=== PATIENT | male | born 1950 | race Caucasian/White ===

== ENCOUNTER 2017-04-30 00:57 | Inpatient (IN) | payer BC, MEDICARE ==
[2017-04-30] MEDS ORDERED: RX INFO: IV CONTRAST WAS GIVEN 1 EACH MISC MISCELLANE PRN ×2 (01:24→05:44)
[2017-04-30 01:31] LABS: Basophils % (A) 0 %; Eosinophils # (A) 0.1 k/uL (0-0.7); Eosinophils % (A) 1 %; HGB 13.4 gm/dL (13.0-17.5); Lymphocytes # (A) 1.5 k/uL (1.0-4.8); Lymphocytes % (A) 16 %; MCH 30.9 pg (25.0-35.0); MCHC 33.5 g/dL (31.0-37.0); MCV 92.3 fL (80.0-100.0); Mean Platelet Volume 8.2; Monocytes # (A) 1.1 k/uL (0-1.0); Monocytes % (A) 12 %; Neutrophils # (A) 6.3 k/uL (1.3-7.7); Neutrophils % (A) 69 %; Platelet Count 251 k/uL (150-450); RBC 4.33 m/uL (4.30-5.90); RDW 13.2 % (11.5-15.5); WBC 9.1 k/uL (3.8-10.6)
--- NOTE | 2017-04-30 01:32 | ED ---
General Adult HPI - General Chief complaint: Abdominal Pain Stated complaint: upper abd/back pain Time Seen by Provider: 04/30/17 01:00 Source: patient, RN notes reviewed Mode of arrival: ambulatory Limitations: no limitations - History of Present Illness Initial comments: This is a 66-year-old male who presents emergency department with past medical history significant for diabetes and morbid obesity. Patient comes in today complaining of mid abdominal pain. Patient states he had 1 episode on that lasted an hour it was about a 6 out of 10. Patient states he had about a 3 -4 hour episode on Sunday and it was about an 8 out of 10. Patient states initially he thought it was related to eating however he states he has eaten since and not had any problems. Patient states occasionally he feels as though the pain may radiate to his back. Currently however he is not experiencing any back pain. Patient denies any nausea vomiting. Patient denies any current diarrhea. Patient denies any recent fever chills or cough. Patient denies any chest pain shortness of breath or difficulty breathing. Patient denies any headache patient denies numbness weakness. - Related Data Home Medications Medication Instructions Recorded Confirmed Atorvastatin [Lipitor] 10 mg PO DAILY 05/03/16 09/06/16 Glimepiride [Amaryl] 2 mg PO AC-BRKFST 05/03/16 09/06/16 Pioglitazone [Actos] 30 mg PO DAILY 05/03/16 09/06/16 Cholecalciferol [Vitamin D3] 1,000 unit PO DAILY 05/10/16 09/06/16 Multivitamin [Men's Multi-Vitamin] 1 each PO DAILY 05/10/16 09/06/16 HYDROcodone/APAP 7.5-325MG [[place] 7.5 mg PO Q6HR PRN 07/12/16 09/06/16 7.5-325] traMADol HCL [Ultram] 50 mg PO TID PRN 07/12/16 09/06/16 Allergies Allergy/AdvReac Type Severity Reaction Status Date / Time cat dander Allergy Dyspnea Verified 04/30/17 01:07 dust Allergy Dyspnea Uncoded 04/30/17 01:07 Review of Systems ROS Statement: Those systems with pertinent positive or pertinent negative responses have been documented in the HPI. ROS Other: All systems not noted in ROS Statement are negative. Past Medical History Past Medical History: Diabetes Mellitus, Hyperlipidemia, Skin Disorder, Sleep Apnea/CPAP/BIPAP Additional Past Medical History / Comment(s): hx heart murmur, wound lt lower leg x2 History of Any Multi-Drug Resistant Organisms: None Reported Past Surgical History: Orthopedic Surgery Additional Past Surgical History / Comment(s): rt ankle surgery with plate and 7 screws, I&D rectal cyst Past Anesthesia/Blood Transfusion Reactions: No Reported Reaction Past Psychological History: No Psychological Hx Reported Smoking Status: Never smoker Past Alcohol Use History: Occasional Past Drug Use History: None Reported - Past Family History Mother Family Medical History: Cancer Additional Family Medical History / Comment(s): breast, skin cancer General Exam - General Exam Comments Initial Comments: GENERAL: Patient is well-developed and well-nourished. Patient is nontoxic and well- hydrated and is mild distress. ENT: Neck is soft and supple. No significant lymphadenopathy is noted. Oropharynx is clear. Moist mucous membranes. Neck has full range of motion without eliciting any pain. EYES: The sclera were anicteric and conjunctiva were pink and moist. Extraocular movements were intact and pupils were equal round and reactive to light. Eyelids were unremarkable. PULMONARY: Unlabored respirations. Good breath sounds bilaterally. No audible rales rhonchi or wheezing was noted. CARDIOVASCULAR: Patient has an irregular heartbeat ABDOMEN: Soft and nontender with normal bowel sounds. No palpable organomegaly was noted. There is no palpable pulsatile mass. SKIN: Skin is clear with no lesions or rashes and otherwise unremarkable. NEUROLOGIC: Patient is alert and oriented x3. Cranial nerves II through XII are grossly intact. Motor and sensory are also intact. Normal speech, volume and content. Symmetrical smile. MUSCULOSKELETAL: Normal extremities with adequate strength and full range of motion. No lower extremity swelling or edema. No calf tenderness. LYMPHATICS: No significant lymphadenopathy is noted PSYCHIATRIC: Normal psychiatric evaluation. Normal interpersonal interactions appears functionally intact in deals appropriately with others. No signs of depression. No signs of anxiety. Limitations: no limitations Course Vital Signs 04/30/17 04/30/17 01:01 01:13 Temperature 98.5 F Pulse Rate 98 Respiratory 16 Rate Blood Pressure 189/91 134/72 O2 Sat by Pulse 98 Oximetry Medical Decision Making - Medical Decision Making EKG shows atrial fibrillation at a rate of 62 bpm QRS is 90 QT interval 366 QTC is 371. Patient's EKG does have some ST segment elevation 3 and aVF however the patient is completely chest pain-free EKG showed some minor ST segment elevation depression and even though the patient didn't have any chest pain cardiology was paged it took some 15 minutes to respond and we had called his cellphone at that time. I faxed the EKG to the dental amalgam processor because of my concern and we were finally able to get a hold of him 27 minutes later. At this time the catheterization team was called in. I spoke with Dr. Marshall and he agreed to admit the patient I admitted the patient - Lab Data Result diagrams: 04/30/17 01:22 04/30/17 01:22 Lab Results 04/30/17 04/30/17 04/30/17 Range/Units 01:22 01:22 01:22 WBC 9.1 (3.8-10.6) k/uL RBC 4.33 (4.30-5.90) m/uL Hgb 13.4 (13.0-17.5) gm/dL Hct 40.0 (39.0-53.0) % MCV 92.3 (80.0-100.0) fL MCH 30.9 (25.0-35.0) pg MCHC 33.5 (31.0-37.0) g/dL RDW 13.2 (11.5-15.5) % Plt Count 251 (150-450) k/uL Neutrophils % 69 % Lymphocytes % 16 % Monocytes % 12 % Eosinophils % 1 % Basophils % 0 % Neutrophils # 6.3 (1.3-7.7) k/uL Lymphocytes # 1.5 (1.0-4.8) k/uL Monocytes # 1.1 H (0-1.0) k/uL Eosinophils # 0.1 (0-0.7) k/uL Basophils # 0.0 (0-0.2) k/uL Sodium 138 (137-145) mmol/L Potassium 3.9 (3.5-5.1) mmol/L Chloride 102 (98-107) mmol/L Carbon Dioxide 27 (22-30) mmol/L Anion Gap 9 mmol/L BUN 19 (9-20) mg/dL Creatinine 1.00 (0.66-1.25) mg/dL Est GFR (MDRD) Af Amer >60 (>60 ml/min/1.73 sqM) Est GFR (MDRD) Non-Af >60 (>60 ml/min/1.73 sqM) Glucose 188 H (74-99) mg/dL Calcium 11.2 H (8.4-10.2) mg/dL Total Bilirubin 1.1 (0.2-1.3) mg/dL AST 297 H (17-59) U/L ALT 114 H (21-72) U/L Alkaline Phosphatase 64 (38-126) U/L Total Creatine Kinase (55-170) U/L CK-MB (CK-2) (0.0-2.4) ng/mL CK-MB (CK-2) Rel Index Troponin I 28.500 H* (0.000-0.034) ng/mL Total Protein 6.5 (6.3-8.2) g/dL Albumin 3.6 (3.5-5.0) g/dL Amylase 39 (30-110) U/L Lipase 119 (23-300) U/L 04/30/17 Range/Units 01:22 WBC (3.8-10.6) k/uL RBC (4.30-5.90) m/uL Hgb (13.0-17.5) gm/dL Hct (39.0-53.0) % MCV (80.0-100.0) fL MCH (25.0-35.0) pg MCHC (31.0-37.0) g/dL RDW (11.5-15.5) % Plt Count (150-450) k/uL Neutrophils % % Lymphocytes % % Monocytes % % Eosinophils % % Basophils % % Neutrophils # (1.3-7.7) k/uL Lymphocytes # (1.0-4.8) k/uL Monocytes # (0-1.0) k/uL Eosinophils # (0-0.7) k/uL Basophils # (0-0.2) k/uL Sodium (137-145) mmol/L Potassium (3.5-5.1) mmol/L Chloride (98-107) mmol/L Carbon Dioxide (22-30) mmol/L Anion Gap mmol/L BUN (9-20) mg/dL Creatinine (0.66-1.25) mg/dL Est GFR (MDRD) Af Amer (>60 ml/min/1.73 sqM) Est GFR (MDRD) Non-Af (>60 ml/min/1.73 sqM) Glucose (74-99) mg/dL Calcium (8.4-10.2) mg/dL Total Bilirubin (0.2-1.3) mg/dL AST (17-59) U/L ALT (21-72) U/L Alkaline Phosphatase (38-126) U/L Total Creatine Kinase 818 H (55-170) U/L CK-MB (CK-2) 40.7 H* (0.0-2.4) ng/mL CK-MB (CK-2) Rel Index 5.0 Troponin I (0.000-0.034) ng/mL Total Protein (6.3-8.2) g/dL Albumin (3.5-5.0) g/dL Amylase (30-110) U/L Lipase (23-300) U/L Critical Care Time Critical Care Time: Yes Total Critical Care Time: 35 Disposition Clinical Impression: Acute DE Disposition: ADMITTED IP TO THIS HOSP Referrals: Dylan Marshall MD [Primary Care Provider] - 1-2 days Time of Disposition: 02:34
[2017-04-30] MEDS ORDERED: NITROGLYCERIN SL TABS 0.4 MG TAB SUBLINGUAL STA (01:38)
[2017-04-30] MEDS ORDERED: ASPIRIN 81 MG PO STA (01:38)
[2017-04-30 01:45] LABS: ALT 114 U/L (21-72); AST 297 U/L (17-59); Albumin 3.6 g/dL (3.5-5.0); Alkaline Phosphatase 64 U/L (38-126); Amylase 39 U/L (30-110); Anion Gap 9 mmol/L; Blood Urea Nitrogen 19 mg/dL (9-20); Calcium 11.2 mg/dL (8.4-10.2); Carbon Dioxide 27 mmol/L (22-30); Chloride 102 mmol/L (98-107); Glucose 188 mg/dL (74-99); Lipase 119 U/L (23-300); Potassium 3.9 mmol/L (3.5-5.1); Sodium 138 mmol/L (137-145); Total Bilirubin 1.1 mg/dL (0.2-1.3); Total Protein 6.5 g/dL (6.3-8.2)
[2017-04-30] MEDS ORDERED: HEPARIN SODIUM,PORCINE 5,000 UNIT/ML 1 ML VIAL IV ONE (02:17)
[2017-04-30] MEDS ORDERED: ATORVASTATIN 80 MG TAB PO STA (02:29)
[2017-04-30] MEDS ORDERED: HEPARIN SOD,PORK IN 0.45% NACL 25,000 UNIT in 0.45% NACL 1 500ML.BAG IV SCH (02:30)
[2017-04-30 02:45] LABS: Creatine Kinase MB 40.7 ng/mL (0.0-2.4)
[2017-04-30] MEDS ORDERED: IV FLUID CONTINUATION 1,000 ML IV ONE (03:22)
[2017-04-30] MEDS ORDERED: VERAPAMIL 2.5 MG/ML 2 ML AMP ONE (03:23)
--- NOTE | 2017-04-30 03:36 | XR ---
EXAM: XR Chest, 1 View CLINICAL HISTORY: ITS.REASON XR Reason: Pain TECHNIQUE: Frontal view of the chest. COMPARISON: None. FINDINGS: Lungs: Mild opacification in the left lung base likely represents atelectasis although potentially small effusion or consolidation could have a similar appearance. Pleural space: Unremarkable. No pneumothorax. Heart: Severe cardiomegaly. Mediastinum: Unremarkable. Bones/joints: Unremarkable. IMPRESSION: Mild opacification in the left lung base likely represents atelectasis although potentially small effusion or consolidation could have a similar appearance.
[2017-04-30] MEDS ORDERED: MIDAZOLAM 2 MG/2 ML VIAL ONE (03:37)
[2017-04-30] MEDS ORDERED: MIDAZOLAM 2 MG/2 ML VIAL IV ONE (03:45)
[2017-04-30] MEDS ORDERED: LIDOCAINE 2% INJ 20 MG/ML SQ ONE (03:48)
[2017-04-30] MEDS: VERAPAMIL SYRINGE (5 MG/10 ML) INTRAARTER ONE ×2 (03:52→05:33)
[2017-04-30] MEDS ORDERED: BIVALIRUDIN BOLUS 250 MG/50 ML IV ONE (04:02)
[2017-04-30] MEDS ORDERED: BIVALIRUDIN 250 MG in SODIUM CHLORIDE 0.9% 50 ML IV ONE ×3 (04:03→05:07)
[2017-04-30] MEDS ORDERED: fentaNYL (PF) 50 MCG/ML 2 ML AMP ONE (04:19)
[2017-04-30] MEDS ORDERED: fentaNYL (PF) 50 MCG/ML 2 ML AMP IV ONE (04:21)
[2017-04-30] MEDS: NITROGLYCERIN 1000MCG/10ML SYRINGE INTRACORON ONE ×2 (04:39→05:16)
[2017-04-30] MEDS: niCARdipine Syringe (1,000 mcg/10 mL) INTRACORON ONE ×3 (04:40→05:31)
[2017-04-30] MEDS ORDERED: CLOPIDOGREL 75 MG TAB ONE (04:42)
[2017-04-30] MEDS ORDERED: CLOPIDOGREL 75 MG TAB PO ONE (04:47)
[2017-04-30] MEDS ORDERED: IOHEXOL 350 MG/ML 125ML BOTTLE INJ ONE (05:35)
[2017-04-30] MEDS ORDERED: ZOLPIDEM 5 MG TAB PO PRN (05:44)
[2017-04-30] MEDS ORDERED: MAG HYDROX/AL HYDROX/SIMETH 30 ML CUP PO PRN (05:44)
[2017-04-30] MEDS ORDERED: ATROPINE SULFATE 0.1 MG/ML 10ML SYRINGE IV PRN (05:44)
[2017-04-30] MEDS ORDERED: NITROGLYCERIN SL TABS 0.4 MG TAB SUBLINGUAL PRN (05:44)
[2017-04-30] MEDS ORDERED: SODIUM CHLORIDE 0.9% 1,000 ML IV SCH (05:45)
--- NOTE | 2017-04-30 05:53 | P.CRDCN ---
History of Present Illness Consult date: 04/30/17 Chief complaint: Abdominal discomfort History of present illness: This is a pleasant 66-year-old gentleman with a past medical history significant for morbid obesity, diabetes, hypertension, dyslipidemia, presented to the emergency room complaining of abdominal/epigastric discomfort. The patient was in his usual state of health until this past when he had an episode of abdominal discomfort lasted about an hour. The following day he did have another episode of abdominal discomfort as well lasted about an hour. He did feel that the discomfort was likely stomach related and he did not seek any medical attention. This area morning he presented to the emergency room with same kind of discomfort but it was more pronounced. He underwent a workup including a troponin which came in to be severe lead elevated. The EKG showed sinus rhythm with about half millimeter ST segment elevation inferiorly. He did not have any symptoms of chest pain or discomfort, dizziness or lightheadedness, or syncope. I recommended proceeding with a heart catheterization which revealed the total occlusion of the RCA in the midportion , beside that the RCA was full of clots from the midportion all the way to the distal portion. An attempted aspiration thrombectomy was performed but I was unable to aspirate any clot from the RCA. Subsequently I did perform balloon angioplasty of the distal and mid RCA and I was able to deploy 4 stents in the RCA from the distal portion all the way to the proximal to midportion. Bilateral hand we get good angiographic results without any thrombus burden was LYNN-3 flow in the RCA. The patient tolerated the procedure very well. He continues to be chest pain-free and the abdominal discomfort has improved as well as. During the procedure the patient has been in and out atrial fibrillation with controlled heart rates. By the end of the procedure he was in normal sinus mechanism. Beside the total occlusion of the RCA which I did few was not acute, the patient did have [id number]-ajvhtdnz disease involving the left circumflex and LAD as well. He is going to be admitted to the intensive care unit. He will be on dual antiplatelet therapy along with a statin along with metoprolol and lisinopril as well. An echocardiogram will be scheduled to assess the LV function. The patient does have a significant family history of coronary artery disease with 2 brothers with coronary artery disease and prior revascularization as well as a mother with coronary artery disease who I follow in the office as an outpatient. Past Medical History Past Medical History: Diabetes Mellitus, Hyperlipidemia, Skin Disorder, Sleep Apnea/CPAP/BIPAP Additional Past Medical History / Comment(s): hx heart murmur, wound lt lower leg x2 History of Any Multi-Drug Resistant Organisms: None Reported Past Surgical History: Orthopedic Surgery Additional Past Surgical History / Comment(s): rt ankle surgery with plate and 7 screws, I&D rectal cyst Past Anesthesia/Blood Transfusion Reactions: No Reported Reaction Past Psychological History: No Psychological Hx Reported Smoking Status: Never smoker Past Alcohol Use History: Occasional Past Drug Use History: None Reported - Past Family History Mother Family Medical History: Cancer Additional Family Medical History / Comment(s): breast, skin cancer Medications and Allergies Home Medications Medication Instructions Recorded Confirmed Type Atorvastatin [Lipitor] 10 mg PO DAILY 05/03/16 09/06/16 History Glimepiride [Amaryl] 2 mg PO AC-BRKFST 05/03/16 09/06/16 History Pioglitazone [Actos] 30 mg PO DAILY 05/03/16 09/06/16 History Cholecalciferol [Vitamin D3] 1,000 unit PO DAILY 05/10/16 09/06/16 History Multivitamin [Men's Multi-Vitamin] 1 each PO DAILY 05/10/16 09/06/16 History HYDROcodone/APAP 7.5-325MG [[place] 7.5 mg PO Q6HR PRN 07/12/16 09/06/16 History 7.5-325] traMADol HCL [Ultram] 50 mg PO TID PRN 07/12/16 09/06/16 History Allergies Allergy/AdvReac Type Severity Reaction Status Date / Time cat dander Allergy Dyspnea Verified 04/30/17 01:07 dust Allergy Dyspnea Uncoded 04/30/17 01:07 Physical Exam Vitals: Vital Signs Temp Pulse Resp BP Pulse Ox 04/30/17 03:10 97.7 F 78 18 134/78 97 04/30/17 01:13 134/72 04/30/17 01:01 98.5 F 98 16 189/91 98 Intake and Output 04/29/17 04/29/17 04/30/17 14:59 22:59 06:59 Intake Total 634.3 Balance 634.3 Intake: IV 634.3 Other: Weight 185.973 kg Patient Weight 04/30/17 06:59 Weight 185.973 kg - Constitutional General appearance: no acute distress - Respiratory Respiratory: bilateral: CTA - Cardiovascular Rhythm: regular Heart sounds: normal: S1, S2 Results 04/30/17 01:22 04/30/17 01:22 Cardiac Enzymes 04/30/17 04/30/17 04/30/17 Range/Units 01:22 01:22 01:22 AST 297 H (17-59) U/L CK-MB (CK-2) 40.7 H* (0.0-2.4) ng/mL Troponin I 28.500 H* (0.000-0.034) ng/mL CBC 04/30/17 Range/Units 01:22 WBC 9.1 (3.8-10.6) k/uL RBC 4.33 (4.30-5.90) m/uL Hgb 13.4 (13.0-17.5) gm/dL Hct 40.0 (39.0-53.0) % Plt Count 251 (150-450) k/uL Comprehensive Metabolic Panel 04/30/17 Range/Units 01:22 Sodium 138 (137-145) mmol/L Potassium 3.9 (3.5-5.1) mmol/L Chloride 102 (98-107) mmol/L Carbon Dioxide 27 (22-30) mmol/L BUN 19 (9-20) mg/dL Creatinine 1.00 (0.66-1.25) mg/dL Glucose 188 H (74-99) mg/dL Calcium 11.2 H (8.4-10.2) mg/dL AST 297 H (17-59) U/L ALT 114 H (21-72) U/L Alkaline Phosphatase 64 (38-126) U/L Total Protein 6.5 (6.3-8.2) g/dL Albumin 3.6 (3.5-5.0) g/dL Current Medications Generic Name Dose Route Start Last Admin Trade Name Freq PRN Reason Stop Dose Admin Al Hydroxide/Mg Hydroxide 30 ml 04/30/17 05:44 Maalox PO Q4HR PRN Heartburn Aspirin 325 mg 04/30/17 09:00 Aspirin PO DAILY [facility] Atorvastatin Calcium 80 mg 04/30/17 21:00 Lipitor PO HS [facility] Atropine Sulfate 0.5 mg 04/30/17 05:44 Atropine IV ONCE PRN Symptomatic Bradycardia Clopidogrel Bisulfate 75 mg 05/01/17 05:45 Plavix PO DAILY [facility] Heparin Sodium/Sodium Chloride 500 mls @ 20.08 mls/hr 04/30/17 02:30 03:17 25,000 unit/ Sodium Chloride IV Not Given .Q24H [facility] Protocol 5.4 UNITS/KG/HR Sodium Chloride 1,000 mls @ 100 mls/hr 04/30/17 05:45 Saline 0.9% IV 04/30/17 11:46 .Q10H [facility] Lisinopril 10 mg 04/30/17 09:00 Zestril PO DAILY [facility] Metoprolol Tartrate 25 mg 04/30/17 09:00 Lopressor PO BID [facility] Miscellaneous Information 1 each 04/30/17 01:24 04/30/17 01:31 Rx Info: Iv Contrast Was Given MISCELLANE 05/02/17 01:26 1 each DAILY PRN Administration Per Protocol Miscellaneous Information 1 each 04/30/17 05:44 Rx Info: Iv Contrast Was Given MISCELLANE 05/02/17 05:44 DAILY PRN Per Protocol Nitroglycerin 0.4 mg 04/30/17 05:44 Nitrostat SUBLINGUAL Q5M PRN Chest Pain Intake and Output 04/29/17 04/29/17 04/30/17 14:59 22:59 06:59 Intake Total 634.3 Balance 634.3 Intake: IV 634.3 Other: Weight 185.973 kg Patient Weight 04/30/17 06:59 Weight 185.973 kg 04/30/17 01:22 04/30/17 01:22 Assessment and Plan Assessment: Assessment #1 acute non-ST elevation myocardial infarction #2 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 Thank you for allowing us participate in his care
[2017-04-30 06:27] LABS: Glucose,Whole Blood 176 mg/dL (75-99)
--- NOTE | 2017-04-30 07:11 | CC ---
CARDIAC CATHETERIZATION REPORT DATE OF SERVICE: 04/30/2017 PERFORMING PHYSICIAN: Zachary Maddox MD, Risk Management Intern. PROCEDURE PERFORMED: 1. Selective right and left coronary angiogram. 2. Left heart catheterization. 3. Attempted aspiration thrombectomy from the RCA. 4. Successful stenting of the of the distal RCA using 3.0 x 24 mm Promus drug-eluting stent with good angiographic results. 5. Successful stenting of the distal to mid RCA using 3.5 x 32 mm Promus Premier drug- eluting stent with good angiographic results. 6. Successful stenting of the mid RCA using 3.5 x 20 mm Promus Premier drug-eluting stent with good angiographic results. 7. Successful stenting of the of the proximal to mid RCA using 3.5 x 60 mm Promus Premier drug-eluting stent with good angiographic results. INDICATION: This is a pleasant 66-year-old gentleman who is morbidly obese as well as with diabetes, hypertension, dyslipidemia, presented to the emergency room complaining of abdominal discomfort and he was ruled in for acute non-ST elevation myocardial infarction. A heart catheterization was recommended. APPROACH: Right radial artery. COMPLICATION: None. LEVEL OF SEDATION: Moderate sedation length of 107 minutes. PROCEDURE DESCRIPTION: After obtaining an informed consent, the patient was brought to the Cardiac Driver Merchandiser. The right radial artery was cannulated using micropuncture technique, the micropuncture wire passed easily, then I placed a 6-Telugu sheath in the right radial artery. After that, I did selective right and left coronary angiogram using JR4 and JL3.5 catheters. After that I did left heart catheterization using JR4 catheter which flipped into the LV then I did pullback across the aortic valve. After that I did intervene on the RCA, please see separate paragraph for that. SELECTIVE CORONARY ANGIOGRAM: 1. The RCA is a large caliber vessel, a dominant vessel, and calcified vessel. The RCA is 100% occluded in the mid-portion. 2. The left main is angiographically normal, it bifurcates into the circumflex and left anterior descending artery. 3. The left circumflex is a large caliber vessel and it is a nondominant vessel. The ostial circ appeared to have disease in the range of 40% to 50%. The proximal circ appeared to gives rise into a large OM branch which worked as ramus intermedius, which seems to have mild disease only. The mid circ appeared to be angiographically normal and gives rise into a second OM branch which seems to be angiographically normal and the circ continued after that as a small to medium caliber vessel in the AV groove. 4. The left anterior descending artery: The proximal LAD is angiographically normal. It gives rise into a large diagonal branch which appeared to have mild disease only. The mid LAD has a lesion appeared to be in the range of 50%. This is by the bifurcation of second diagonal branch which appeared to have an ostial disease in the range of 50%. The LAD in the mid to distal and distal portion appeared to be angiographically normal. HEMODYNAMICS: The left ventricular end-diastolic pressure was 16 mmHg. No gradient was identified across the aortic valve. PCI OF THE RCA: Anticoagulation was initiated using Angiomax. Subsequently, I took a JR4 guide and the RCA was engaged. I was able to cross the acute total occlusion of the mid RCA using a whisper wire. I did initially balloon angioplasty using 2.5 x 12 mm balloon but I was unable to advance the balloon to the distal RCA, so I suspected a hard lesion in that area. I did after that attempting an aspiration thrombectomy of the mid RCA, but I was unable to cross the proximal to midportion of the RCA. After that, I tried to do balloon angioplasty using 3.0 mm balloon, but I was unable to advance the balloon to the distal area of the RCA. At that point, I did balloon angioplasty using 1.5 mm balloon and I did balloon angioplasty of the whole distal and mid RCA. After that I did balloon angioplasty using 3.5 mm balloon and also I did balloon angioplasty of the whole distal and mid RCA. After that, I attempted advancing a 3.0 x 24 mm stent to the distal RCA, but the stent will not turn in the proximal to mid RCA, so I did wire the RCA using a syl wire and that was a run-through wire. With the adjunctive use of run- through, I was able to deploy 4 stents in the RCA. The first stent was 3.0 x 24 mm and was deployed distally just by the bifurcation of the RCA to PDA and PLV branches. The stent was positioned under fluoroscopy guidance and deployed under 14 atmospheres for 20 seconds. The distal to mid RCA was stented using 3.5 x 32 mm stent and again the stent was positioned under fluoroscopy guidance and deployed under 12 atmospheres for 20 seconds. The area of the mid RCA was stented using 3.5 x 20 mm another Promus drug- eluting stent where the stent again was positioned under fluoroscopy guidance and deployed under about 14 atmospheres for 20 seconds. The following angiogram showed an area just in the proximal to mid RCA. seems to be hazy with possible thrombus there. So I decided to stent that area and I did use a 3.5 x 16 mm another Promus drug-eluting stent where the stent was positioned under fluoroscopy guidance and deployed as well under 14 atmospheres for 20 seconds. Then I did balloon angioplasty of the whole stented segment using a 37.5 mm NC balloon. The following angiogram showed good angiographic results without perforation and without dissection. The procedure was completed without any complication. POSTPROCEDURE MANAGEMENT: 1. Dual anti-platelet therapy. 2. Risk factors modifications. 3. Follow up with the patient. ALYSON / VEE: [id number] /
--- NOTE | 2017-04-30 07:17 | LTR ---
DATE OF SERVICE: 04/30/2017 RE: Nino Luis Dear Dr. Marshall; Mr. Luis Oneill presented to the emergency room with epigastric discomfort, but he ruled in for acute non-ST elevation myocardial infarction with severely elevated troponin and mildly abnormal EKG. In view of that, I recommended proceeding with a heart catheterization. The heart catheterization revealed the acute total occlusion of the mid RCA with large thrombus burden. Mr. Oneill underwent successful stenting of the RCA using 4 drug-eluting stents with good angiographic results within and without any complication. Thank you for allowing me to participate in his care. Sincerely, MD ALYSON Hemphill / VEE: [id number] /
[2017-04-30] MEDS: traMADol 50 MG TAB PO PRN ×2 (08:19→19:01)
[2017-04-30] MEDS ORDERED: METOPROLOL TARTRATE 25 MG TAB PO SCH (09:00)
[2017-04-30] MEDS: ASPIRIN 325 MG TAB PO SCH (10:28)
--- NOTE | 2017-04-30 11:34 | P.PN ---
Subjective Principal diagnosis: Patient is doing well after coronary artery stenting of the RCA in the setting of an acute myocardial infarction He denies any chest discomfort no undue shortness of breath This morning he was eating breakfast when the food got stuck in his esophagus and he can't cough it out. At that time he had bradycardia with AV block associated with dizziness The dizziness followed with food getting stuck in his esophagus He is a mildly prolonged [place] interval at baseline No recurrence since Lying comfortably in bed heart rate in 70s, respirations normal, blood pressure 148/71 mmHg Heart sounds are normal normal S1 normal S2 no murmurs or gallops Breath sounds are clear no rhonchi no crackles Abdomen soft nontender Trophic changes in the lower extremities Right hand has normal circulation He had a right radial access for the procedure 2-D echo was reviewed and shows inferoseptal inferior basal hypokinesis Overall LV size and function is preserved Review of systems: No fever chills or rigors, no cough, phlegm or expectoration , no nausea, vomiting or diarrhea, no hematuria, dysuria, no musculoskeletal complaints, no strokes or seizures, no skin lesions. Only complaint has been dizziness and presyncope during the episode of brief AV block with bradycardia as described above Impression Acute myocardial infarction, high thrombus burden in the RCA Coronary stenting of the RCA proximal mid and distal Morbid obesity Diabetes adult onset Hypertension, essential Obstructive sleep apnea Inferior basal and inferoseptal hypokinesis with preserved LV systolic function Suggest Hold beta blockers for now continue all other cardiac medications including medications for hypertension, continue statins and aspirin and Plavix Continue ICU monitoring today Objective - Vital Signs Vital signs: Vital Signs Temp 97.8 F 04/30/17 08:00 Pulse 71 04/30/17 11:00 Resp 40 H 04/30/17 11:00 BP 148/71 04/30/17 11:00 Pulse Ox 93 L 04/30/17 11:00 Intake & Output 04/29/17 04/30/17 04/30/17 18:59 06:59 18:59 Intake Total 773.3 500 Balance 773.3 500 Weight 185.973 kg Intake: IV 773.3 500 Sodium Chloride 0.9% 1, 100 500 000 ml @ 100 mls/hr IV . Q10H [facility] Rx#:[id number] Other: Voiding Method Urinal # Voids 1 - Labs CBC & Chem 7: 04/30/17 01:22 04/30/17 01:22 Labs: Abnormal Lab Results - Last 24 Hours (Table) 04/30/17 04/30/17 04/30/17 Range/Units 01:22 01:22 01:22 Monocytes # 1.1 H (0-1.0) k/uL Glucose 188 H (74-99) mg/dL POC Glucose (mg/dL) (75-99) mg/dL Calcium 11.2 H (8.4-10.2) mg/dL AST 297 H (17-59) U/L ALT 114 H (21-72) U/L Total Creatine Kinase (55-170) U/L CK-MB (CK-2) (0.0-2.4) ng/mL Troponin I 28.500 H* (0.000-0.034) ng/mL 04/30/17 04/30/17 Range/Units 01:22 06:24 Monocytes # (0-1.0) k/uL Glucose (74-99) mg/dL POC Glucose (mg/dL) 176 H (75-99) mg/dL Calcium (8.4-10.2) mg/dL AST (17-59) U/L ALT (21-72) U/L Total Creatine Kinase 818 H (55-170) U/L CK-MB (CK-2) 40.7 H* (0.0-2.4) ng/mL Troponin I (0.000-0.034) ng/mL
[2017-04-30] MEDS: LISINOPRIL 10 MG TAB PO SCH (12:18)
[2017-04-30] MEDS: INSULIN ASPART 100 UNIT/ML 1 ML 10 ML VIAL SQ SCH ×3 (12:18→23:11)
[2017-04-30 12:20] LABS: Glucose,Whole Blood 173 mg/dL (75-99)
[2017-04-30 17:15] LABS: Glucose,Whole Blood 154 mg/dL (75-99)
--- NOTE | 2017-04-30 19:10 | ECHOF ---
Referral Reason:nstemi MEASUREMENTS -------- HEIGHT: 180.3 cm WEIGHT: 186.0 kg BP: 118/66 RVIDd: 4.0 cm (< 3.3) IVSd: 1.7 cm (0.6 - 1.1) LVIDd: 4.4 cm (3.9 - 5.3) LVPWd: 1.8 cm (0.6 - 1.1) IVSs: 2.3 cm LVIDs: 3.5 cm LVPWs: 1.9 cm LA Diam: 4.6 cm (2.7 - 3.8) LAESV Index (A-L): 38.15 ml/m Ao Diam: 3.9 cm (2.0 - 3.7) AV Cusp: 1.9 cm (1.5 - 2.6) MV EXCURSION: 16.920 mm (> 18.000) MV EF SLOPE: 66 mm/s (70 - 150) EPSS: 1.1 cm MV E Arcadio: 0.70 m/s MV DecT: 211 ms MV A Arcadio: 0.60 m/s MV E/A Ratio: 1.15 AV maxP.41 mmHg AV meanP.32 mmHg FINDINGS -------- This was a technically difficult study with suboptimal views. The left ventricular size is normal. There is severe concentric left ventricular hypertrophy. Ove rall left ventricular systolic function is mildly impaired with, an EF between 45 - 50 %. Basal inf erior LV wall motion is hypokinetic. Basal inferoseptal LV wall motion is hypokinetic. The right ventricle is moderately enlarged. LA is moderately dilated 34-39 ml/m2 The right atrium was not well visualized. 2.5 ml of Lumason was utilized for enhancement of images. The aortic valve is trileaflet and appears structurally normal. Peak/mean gradient across the Aorti c Valve is 17.41mmHg / 9.32mmHg. The mitral valve is normal. Mild tricuspid regurgitation present. There is no pulmonic regurgitation present. The aortic root is dilated measuring 3.9cm. IVC Not well visulized. There is no pericardial effusion. CONCLUSIONS -------- 1. This was a technically difficult study with suboptimal views. 2. The left ventricular size is normal. 3. There is severe concentric left ventricular hypertrophy. 4. Overall left ventricular systolic function is mildly impaired with, an EF between 45 - 50 %. 5. Basal inferior LV wall motion is hypokinetic. 6. Basal inferoseptal LV wall motion is hypokinetic. 7. The right ventricle is moderately enlarged. 8. LA is moderately dilated 34-39 ml/m2 9. The right atrium was not well visualized. 10. 2.5 ml of Lumason was utilized for enhancement of images. 11. The aortic valve is trileaflet and appears structurally normal. 12. Peak/mean gradient across the Aortic Valve is 17.41mmHg / 9.32mmHg. 13. The mitral valve is normal. 14. Mild tricuspid regurgitation present. 15. There is no pulmonic regurgitation present. 16. The aortic root is dilated measuring 3.9cm. 17. IVC Not well visulized. 18. There is no pericardial effusion. GAME PRODUCER: Heather Cha RDCS
--- NOTE | 2017-04-30 20:47 | HP ---
HISTORY AND PHYSICAL DATE OF ADMISSION: 04/30/17 CHIEF COMPLAINT: Epigastric pain. HISTORY OF PRESENT ILLNESS: This is a 66-year-old gentleman who presents to the emergency room with complaint of high epigastric pain. The patient's symptoms started 4 days prior to this admission. He had a significant episode on . The patient's symptoms lasted about an hour or so. He was in the shower when he suddenly felt his symptoms. He knew something was wrong. However, he thought it was some bad food he had eaten. The patient had no nausea, vomiting, diaphoresis. No shortness of breath. The patient had no palpitations. The patient's symptoms abated in the day and they recurred again for an hour or 2 on Sunday and Sunday. On Sunday, patient's symptoms recurred. In view of this he presents to the emergency room. He is noted to have mild ST elevation in the inferior leads and the troponins were markedly elevated. The patient basically fairly comfortable in no distress. Vitals are stable. In view of this, he is taken to the cardiac [facility]. Where he is noted that he has a significant clot in the RCA. This RCA were stented. He has about 40-50% occlusions in the LAD and circumflex system. The patient is morbidly obese. He has had a history of hypertension, diabetes mellitus, and hyperlipidemia. His hyperlipidemia medicines he takes off and on only. He recently restarted them. The patient otherwise has no other symptoms of dizziness. The patient had a headache today, but had no dizziness. He has shortness of breath. The patient does have some chronic venous stasis of both lower legs with chronic dermatitis. PAST MEDICAL HISTORY: Significant for hypertension, diabetes mellitus, hyperlipidemia, chronic stasis dermatitis, both lower legs with a previous ulceration lower leg. The patient also morbidly obese. Past medical history otherwise negative for any lung disease, liver disease, kidney disease, ulcers, TB, hepatitis. No history of any rheumatic fever, myocardial infarction or CVA. The patient does have a history of obstructive sleep apnea on CPAP. PAST SURGICAL HISTORY: Left ankle ORIF and perianal abscess drainage. PERSONAL HISTORY: Never smoker. Alcohol none. SOCIAL HISTORY: Patient is , lives with spouse. 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 FAMILY MEDICAL HISTORY: Father at 72 history of coronary artery disease. Mother age 88, history of coronary artery disease, diabetes, COPD, a sister, age 55, diabetes mellitus complications. Brother 52 coronary artery disease. A brother, 56, hyperlipidemia, a brother, 58 diabetes mellitus, coronary artery disease. The patient has a son 43 diabetes mellitus without complications. A son 40 healthy and a son 38 good health. REVIEW OF SYSTEMS: NEURO: At present, has a headache. No dizziness, double vision, blurred vision. No symptoms of TIA, syncope or seizures. Psych: No anxiety or depression. Cardiac: No chest pain, angina or palpitations present. Had symptoms off and on as mentioned above. High epigastric pain with no radiation. CARDIAC: No palpitations. RESPIRATORY: No shortness of breath, cough, hemoptysis. GI no nausea, vomiting, abdominal pain, diarrhea, constipation, hematochezia, melena. : No symptoms of dysuria, hematuria, urgency, frequency. Extremities: Does have some mild chronic stasis dermatitis right lower leg and some superficial ulcerations left lower leg. The patient has otherwise good pulses both lower and upper extremities except the right wrist where he has compression dressing at present. Neurological awake, alert, oriented x3 with well-coordinated movements. LABORATORY DATA: CBC which is normal. Electrolytes normal. BUN, creatinine normal. Glucose was 188, AST 297, ALT 114. Total CPK was 818, MB positive, troponin 28. Lipase and amylase are normal. EKG revealed sinus rhythm and mild ST elevation inferior leads. Some atelectasis on chest x-ray. ASSESSMENT: 1. Acute ST elevated myocardial infarction inferior wall. 2. History of diabetes mellitus, controlled. 3. Hypertension, controlled. 4. Hyperlipidemia, on medical therapy. 5. Morbid obesity. PLAN: The patient at present is post stenting of the RCA with 4 drug-eluting stents. The patient is doing well. Vital signs are stable. We will continue present medications. Management as mentioned. Discussed with the patient and family regarding patient's status. Long-term prognosis guarded. MMODL / IJN: [id number] /
[2017-04-30 22:18] LABS: Glucose,Whole Blood 196 mg/dL (75-99)
[2017-04-30] MEDS: ATORVASTATIN 80 MG TAB PO SCH (23:11)
[2017-05-01] MEDS: traMADol 50 MG TAB PO PRN ×4 (00:43→20:28)
[2017-05-01] MEDS: CLOPIDOGREL 75 MG TAB PO SCH ×2 (04:39→08:01)
[2017-05-01 05:09] LABS: Anion Gap 10 mmol/L; Blood Urea Nitrogen 20 mg/dL (9-20); Calcium 8.9 mg/dL (8.4-10.2); Carbon Dioxide 24 mmol/L (22-30); Chloride 104 mmol/L (98-107); Glucose 118 mg/dL (74-99); Sodium 138 mmol/L (137-145)
[2017-05-01 07:16] LABS: Glucose,Whole Blood 124 mg/dL (75-99)
[2017-05-01] MEDS: GLIMEPIRIDE 2 MG TAB PO SCH (08:01)
[2017-05-01] MEDS: LISINOPRIL 10 MG TAB PO SCH (08:01)
[2017-05-01] MEDS: ASPIRIN 325 MG TAB PO SCH (08:01)
[2017-05-01] MEDS: INSULIN ASPART 100 UNIT/ML 1 ML 10 ML VIAL SQ SCH ×4 (08:05→22:38)
[2017-05-01 12:06] LABS: Glucose,Whole Blood 140 mg/dL (75-99)
--- NOTE | 2017-05-01 14:07 | P.PN ---
Subjective Principal diagnosis: Patient is doing well from a chronic standpoint. He denies any dizzy spells no chest pain or undue shortness of breath. He does have AV node Wenckebach block on telemetry but he has not had any significant pauses and no symptoms. He is resting comfortably in bed as well as in the chair On examination he is afebrile 97.9F pulse rate in the 50s and 60s blood pressure 127 67 mmHg normal respirations Breath sounds are clear no rhonchi no crackles Extremities warm Minimal bilateral lower symmetry edema with trophic changes Morbid obesity Heart sounds are normal no murmurs or gallop or rub Abdomen is soft nontender Impression Acute inferior wall myocardial infarction status post stenting extensive disease in the RCA including the proximal mid and distal RCA status post stenting at all 3 sites Complete AV block noted yesterday with pauses with dizziness A second episode of late AV block with a pause but no symptoms, later on AV node Wenckebach block noted today, Hence beta blockers are on hold Hypertension, on lisinopril blood pressure is well controlled on 10 mg by mouth daily Continue statins and dual antiplatelet therapy Plan Continue current medications and monitor in ICU for today. Tomorrow if he has no further deterioration in his AV conduction U transfer him to telemetry but he will continue to be monitored for the next 3-4 days on telemetry until AV block results and we can reinitiate low-dose beta blockers Objective - Vital Signs Vital signs: Vital Signs Temp 97.9 F 05/01/17 12:00 Pulse 65 05/01/17 12:00 Resp 26 H 05/01/17 12:00 BP 127/67 05/01/17 12:00 Pulse Ox 93 L 05/01/17 12:00 Intake & Output 04/30/17 05/01/17 05/01/17 18:59 06:59 18:59 Intake Total 1060 300 250 Output Total 0 Balance 1060 300 250 Weight 185.973 kg Intake: IV 1060 60 Sodium Chloride 0.9% 1, 1060 60 000 ml @ 100 mls/hr IV . Q10H [facility] Rx#:[id number] Oral 240 250 Output: Urine 0 Other: Voiding Method Urinal Urinal Urinal # Voids 1 0 0 - Labs CBC & Chem 7: 04/30/17 01:22 05/01/17 04:01 Labs: Abnormal Lab Results - Last 24 Hours (Table) 04/30/17 04/30/17 05/01/17 Range/Units 17:12 22:15 04:01 Glucose 118 H (74-99) mg/dL POC Glucose (mg/dL) 154 H 196 H (75-99) mg/dL 05/01/17 05/01/17 Range/Units 07:14 12:03 Glucose (74-99) mg/dL POC Glucose (mg/dL) 124 H 140 H (75-99) mg/dL
[2017-05-01] MEDS ORDERED: ATROPINE SULFATE 0.1 MG/ML 10ML SYRINGE IV STA ×2 (16:03→18:15)
[2017-05-01] MEDS ORDERED: DOPamine DRIP 500 ML IV ONE (16:11)
[2017-05-01] MEDS: DOPamine DRIP 800 MG in DEXTROSE/WATER 1 500ML.BAG IV SCH (16:15)
[2017-05-01] MEDS ORDERED: ATROPINE SULFATE 0.1 MG/ML 10ML SYRINGE ONE (18:03)
[2017-05-01] MEDS ORDERED: ONDANSETRON 4 MG/2 ML VIAL ONE (18:47)
--- NOTE | 2017-05-01 18:48 | P.PN ---
Subjective Progress Note Date: 05/01/17 Principal diagnosis: Acute microinfarction History present illness: This 66-year-old was admitted to the hospital with complaints of chest pain. Patient is noted to have evidence of acute microinfarction post inferior wall. The patient's right coronary artery was occluded requiring angioplasty and stent placement. The patient actually has been doing fairly well. He did have an episode of significant bradycardia and pause while he was trying to swallow yesterday. He was sitting up in the chair. Patient is noted to be in a second-degree intermittent block. He does have a history of diabetes mellitus with adequately controlled blood sugars patient's morbidity obese. He does have history of obstructive sleep apnea on CPAP. He has been using his CPAP here. The patient's vitals have remained stable. He denies any cardiac symptoms. No dizziness. REVIEW OF SYSTEMS: Neuro: Denies any headaches dizziness. Psych: Denies anxiety depression feels oriented. Cardiac: Denies chest pain and angina palpitations. Respiratory: Denies shortness of breath cough. GI: Denies nausea vomiting or abdominal pain. No diarrhea or constipation, no bowel movement yet. : Denies dysuria hematuria. Extremities: Denies pain. No edema. Skin: Intact. Constitutional: No fever, chills. Objective - Vital Signs Vital signs: Vital Signs Temp 97.9 F 05/01/17 12:00 Pulse 56 L 05/01/17 18:00 Resp 24 05/01/17 18:00 BP 109/62 05/01/17 18:00 Pulse Ox 98 05/01/17 18:00 Intake & Output 04/30/17 05/01/17 05/01/17 18:59 06:59 18:59 Intake Total 1060 300 500 Output Total 0 350 Balance 1060 300 150 Weight 185.973 kg Intake: IV 1060 60 Sodium Chloride 0.9% 1, 1060 60 000 ml @ 100 mls/hr IV . Q10H [facility] Rx#:[id number] Oral 240 500 Output: Urine 0 350 Other: Voiding Method Urinal Urinal Urinal # Voids 1 0 0 PHYSICAL EXAMINATION: Cooperative, at present in no acute distress. HEENT: Neck supple. No JVD. Chest: Clear to auscultation percussion. Cardiac: Normal S1-S2 no gallops systolic murmur 2 / 6 left sternal border and right second intercostal space. Abdomen: Soft bowel sounds present. Extremities: No edema no tenderness does have a compression dressing on the left lower leg. Patient has bilateral lower extremities stasis dermatitis Neurologically: Awake, alert, oriented with well-coordinated movements. - Labs CBC & Chem 7: 04/30/17 01:22 05/01/17 04:01 Labs: Abnormal Lab Results - Last 24 Hours (Table) 04/30/17 05/01/17 05/01/17 Range/Units 22:15 04:01 07:14 Glucose 118 H (74-99) mg/dL POC Glucose (mg/dL) 196 H 124 H (75-99) mg/dL 05/01/17 Range/Units 12:03 Glucose (74-99) mg/dL POC Glucose (mg/dL) 140 H (75-99) mg/dL Assessment and Plan Assessment: ASSESSMENT: 1. Status post acute myocardial infarction inferior wall ST elevation.. 2. Second-degree AV block. 3. Morbid obesity. 4. Obstructive sleep apnea on CPAP. 5. Diabetes mellitus type 2 controlled. 6. Hypertension controlled. 7. Hyperlipidemia on medical therapy. 8. Chronic venous stasis lower extremities. PLAN: Continue present medical regimen. Patient's condition discussed with the patient reviewed echogram results which shows mild drop in his life and to function compared to previous echocardiogram recently done. Also reviewed patient's cardiac block at present needs to be monitored. Expected to recover back to sinus rhythm. Condition discussed with Dr Norwood the business account manager..
[2017-05-01] MEDS ORDERED: ONDANSETRON 4 MG/2 ML VIAL IVP PRN (18:56)
[2017-05-01 21:51] LABS: Glucose,Whole Blood 173 mg/dL (75-99)
[2017-05-01] MEDS: ATORVASTATIN 80 MG TAB PO SCH (22:38)
[2017-05-02] MEDS: traMADol 50 MG TAB PO PRN ×2 (01:10→13:39)
[2017-05-02 05:48] LABS: Basophils % (A) 1 %; Eosinophils # (A) 0.3 k/uL (0-0.7); Eosinophils % (A) 4 %; HCT 36.2 % (39.0-53.0); HGB 12.1 gm/dL (13.0-17.5); Lymphocytes # (A) 1.1 k/uL (1.0-4.8); Lymphocytes % (A) 17 %; MCH 30.6 pg (25.0-35.0); MCHC 33.5 g/dL (31.0-37.0); MCV 91.4 fL (80.0-100.0); Mean Platelet Volume 7.7; Monocytes # (A) 0.7 k/uL (0-1.0); Monocytes % (A) 11 %; Neutrophils # (A) 4.2 k/uL (1.3-7.7); Neutrophils % (A) 65 %; Platelet Count 261 k/uL (150-450); RBC 3.96 m/uL (4.30-5.90); RDW 13.3 % (11.5-15.5); WBC 6.5 k/uL (3.8-10.6)
[2017-05-02 06:03] LABS: ALT 67 U/L (21-72); AST 96 U/L (17-59); Albumin 3.2 g/dL (3.5-5.0); Alkaline Phosphatase 58 U/L (38-126); Anion Gap 6 mmol/L; Blood Urea Nitrogen 21 mg/dL (9-20); Calcium 8.6 mg/dL (8.4-10.2); Carbon Dioxide 28 mmol/L (22-30); Chloride 103 mmol/L (98-107); Glucose 162 mg/dL (74-99); Magnesium 1.8 mg/dL (1.6-2.3); Phosphorus 4.1 mg/dL (2.5-4.5); Potassium 4.2 mmol/L (3.5-5.1); Sodium 137 mmol/L (137-145); Total Bilirubin 0.9 mg/dL (0.2-1.3); Total Protein 6.1 g/dL (6.3-8.2)
[2017-05-02 06:32] LABS: Creatine Kinase MB 4.7 ng/mL (0.0-2.4); Troponin I 14.8 ng/mL (0.000-0.034)
[2017-05-02 07:08] LABS: Glucose,Whole Blood 146 mg/dL (75-99)
[2017-05-02] MEDS: MAGNESIUM SULFATE-D5W PMX 1 GM in DEXTROSE/WATER 1 100ML.BAG IVPB SCH ×2 (08:05→13:39)
[2017-05-02] MEDS: guaiFENesin-DM 100-10MG/5ML 10 ML CUP PO PRN (08:05)
[2017-05-02] MEDS: ASPIRIN 325 MG TAB PO SCH (08:07)
[2017-05-02] MEDS: GLIMEPIRIDE 2 MG TAB PO SCH (08:07)
[2017-05-02] MEDS: CLOPIDOGREL 75 MG TAB PO SCH (08:08)
[2017-05-02] MEDS: INSULIN ASPART 100 UNIT/ML 1 ML 10 ML VIAL SQ SCH ×4 (08:10→20:42)
[2017-05-02] MEDS: SPIRONOLACTONE 25 MG TAB PO SCH (09:29)
[2017-05-02 11:54] LABS: Glucose,Whole Blood 139 mg/dL (75-99)
--- NOTE | 2017-05-02 13:02 | P.PN ---
Subjective This morning the patient is back in sinus rhythm. Yesterday when he was in atrial fibrillation with a very slow ventricular response and we used IV dopamine to get his heart rates up. He has a first-degree AV block as well as AV node Wenckebach block and now is experiencing PVCs even after dopamine was shut off No chest discomfort or nausea or lightheadedness or passing out spells or dizziness no chest pain No shortness of breath. He is sitting comfortably in a chair Pulse rate in the 60s and 70s sinus mechanism respirations normal blood pressure 119/70 mmHg Breath sounds are reduced bilaterally Heart sounds S1 and S2 are soft abdomen soft nontender increased BMI noted no lower extremity edema but with trophic changes noted Impression Acute inferior wall NH Transient third-degree AV block AV node Wenckebach block Transient Episode of atrial fibrillation with severe bradycardia requiring IV dopamine Back in sinus rhythm Morbid obesity Status post cardiac stenting to the RCA proximal mid and distal Suggest Avoid beta blockers Continue Neptali inhibitors and continue all other medications including dual antiplatelet therapy and statins Continue ICU monitoring Discussed with patient and his Objective - Vital Signs Vital signs: Vital Signs Temp 98 F 05/02/17 08:00 Pulse 70 05/02/17 11:00 Resp 23 05/02/17 11:00 BP 119/70 05/02/17 11:00 Pulse Ox 93 L 05/02/17 11:00 Intake & Output 05/01/17 05/02/17 05/02/17 18:59 06:59 18:59 Intake Total 545.890 521.549 50 Output Total 350 300 Balance 195.890 221.549 50 Weight 185.973 kg Intake: IV 110 50 NS 110 50 Intake, IV Titration 45.890 291.549 Amount DOPamine DRIP 800 mg In 45.890 291.549 Dextrose/Water 1 500ml. bag @ 2 MCG/KG/MIN 13.94 mls/hr IV .Q24H [facility] Rx#: [id number] Oral 500 120 Output: Urine 350 300 Other: Voiding Method Urinal Toilet Toilet Urinal Urinal # Voids 0 1 - Labs CBC & Chem 7: 05/02/17 05:26 05/02/17 05:26 Labs: Abnormal Lab Results - Last 24 Hours (Table) 05/01/17 05/02/17 05/02/17 Range/Units 21:49 05:26 05:26 RBC 3.96 L (4.30-5.90) m/uL Hgb 12.1 L (13.0-17.5) gm/dL Hct 36.2 L (39.0-53.0) % BUN 21 H (9-20) mg/dL Glucose 162 H (74-99) mg/dL POC Glucose (mg/dL) 173 H (75-99) mg/dL AST 96 H (17-59) U/L CK-MB (CK-2) (0.0-2.4) ng/mL Troponin I (0.000-0.034) ng/mL Total Protein 6.1 L (6.3-8.2) g/dL Albumin 3.2 L (3.5-5.0) g/dL 18 18 05/02/17 Range/Units 05:26 07:06 11:52 RBC (4.30-5.90) m/uL Hgb (13.0-17.5) gm/dL Hct (39.0-53.0) % BUN (9-20) mg/dL Glucose (74-99) mg/dL POC Glucose (mg/dL) 146 H 139 H (75-99) mg/dL AST (17-59) U/L CK-MB (CK-2) 4.7 H* (0.0-2.4) ng/mL Troponin I 14.800 H* (0.000-0.034) ng/mL Total Protein (6.3-8.2) g/dL Albumin (3.5-5.0) g/dL
[2017-05-02] MEDS: DOPamine DRIP 800 MG in DEXTROSE/WATER 1 500ML.BAG IV SCH (13:40)
[2017-05-02] MEDS: LISINOPRIL 10 MG TAB PO SCH (13:40)
[2017-05-02] MEDS ORDERED: ATROPINE SULFATE 0.1 MG/ML 10ML SYRINGE ONE (15:37)
[2017-05-02 17:41] LABS: Glucose,Whole Blood 143 mg/dL (75-99)
[2017-05-02] MEDS: ATORVASTATIN 80 MG TAB PO SCH (20:42)
[2017-05-02 20:43] LABS: Glucose,Whole Blood 144 mg/dL (75-99)
--- NOTE | 2017-05-02 22:37 | PN ---
PROGRESS NOTE ATTENDING PHYSICIAN: Dr. Sujey Marshall. CHIEF COMPLAINT: Re-evaluation. HISTORY OF PRESENT ILLNESS: This 66-year-old was admitted to the hospital with chest pain. The patient noted to have evidence of acute myocardial infarction, has undergone stenting of the right coronary artery. The patient denies any symptoms of angina or shortness of breath; however, the patient had 2nd-degree AV block and some sinus pauses yesterday. The patient also had a short run of atrial fibrillation with bradycardia. The patient was placed on a small dose of dopamine. The patient since then has been in sinus rhythm with first-degree AV block and some PVCs. The patient has no other associated symptoms since then. REVIEW OF SYSTEMS: NEURO: Denies any headaches, dizziness. PSYCH: No anxiety. CARDIAC: No chest pain, angina, palpitations. RESPIRATORY: No shortness of breath, cough. GI: No nausea, vomiting, abdominal pain. No diarrhea. No bowel movement. : No symptoms of dysuria, hematuria. EXTREMITIES: No pain. Has on the left leg which needs to come out tomorrow. The patient otherwise is feeling well. PHYSICAL EXAMINATION: Temperature 98, pulse 75, respirations 17, blood pressure 102/65, pulse ox of 93% on room air. HEENT: Normocephalic. NECK: No JVD. CHEST: Clear to auscultation. CARDIAC: Normal S1, S2 with no gallop. Systolic murmur 2/6 right second intercostal space. ABDOMEN: Soft. Bowel sounds present. Extremities reveal no edema NEUROLOGICAL: Awake, alert, oriented with well-coordinated movements. LABORATORY ASSESSMENT: Normal white count. Hemoglobin is 12.1. Electrolytes, BUN, creatinine are normal. Glucose 162. ASSESSMENT: 1. Status post acute inferior wall myocardial infarction. 2. Second-degree atrioventricular block, resolved. 3. Obstructive sleep apnea on CPAP. 4. Obesity. 5. Diabetes mellitus. PLAN: The patient is stable. Continue present medical regimen. Patient's condition discussed with Dr. Jackson, the cmo & president. Prognosis is guarded. Will continue to monitor the patient for any eliud arrhythmias. MMODL / IJN: [id number] /
[2017-05-03] MEDS: traMADol 50 MG TAB PO PRN ×3 (00:01→18:01)
[2017-05-03 05:07] LABS: Basophils % (A) 1 %; Eosinophils # (A) 0.3 k/uL (0-0.7); Eosinophils % (A) 6 %; HCT 35.6 % (39.0-53.0); HGB 11.7 gm/dL (13.0-17.5); Lymphocytes # (A) 1.2 k/uL (1.0-4.8); Lymphocytes % (A) 22 %; MCH 30.2 pg (25.0-35.0); MCHC 32.8 g/dL (31.0-37.0); Mean Platelet Volume 7.3; Monocytes # (A) 0.5 k/uL (0-1.0); Monocytes % (A) 9 %; Neutrophils # (A) 3.2 k/uL (1.3-7.7); Neutrophils % (A) 59 %; Platelet Count 235 k/uL (150-450); RBC 3.87 m/uL (4.30-5.90); RDW 13.2 % (11.5-15.5); WBC 5.4 k/uL (3.8-10.6)
[2017-05-03 05:25] LABS: Anion Gap 8 mmol/L; Blood Urea Nitrogen 19 mg/dL (9-20); Calcium 8.5 mg/dL (8.4-10.2); Carbon Dioxide 28 mmol/L (22-30); Chloride 103 mmol/L (98-107); Glucose 133 mg/dL (74-99); Magnesium 2.1 mg/dL (1.6-2.3); Phosphorus 3.8 mg/dL (2.5-4.5); Potassium 4.3 mmol/L (3.5-5.1); Sodium 139 mmol/L (137-145)
[2017-05-03 07:05] LABS: Glucose,Whole Blood 145 mg/dL (75-99)
[2017-05-03] MEDS: INSULIN ASPART 100 UNIT/ML 1 ML 10 ML VIAL SQ SCH ×4 (07:07→21:18)
[2017-05-03] MEDS ORDERED: MAGNESIUM HYDROXIDE 2,400 MG/10 ML CUP PO PRN (08:18)
[2017-05-03] MEDS ORDERED: DOCUSATE 100 MG CAP PO PRN (08:19)
[2017-05-03] MEDS: ASPIRIN 325 MG TAB PO SCH (09:05)
[2017-05-03] MEDS: CLOPIDOGREL 75 MG TAB PO SCH (09:05)
[2017-05-03] MEDS: GLIMEPIRIDE 2 MG TAB PO SCH (09:05)
[2017-05-03] MEDS: LISINOPRIL 10 MG TAB PO SCH (09:05)
[2017-05-03] MEDS: SPIRONOLACTONE 25 MG TAB PO SCH (09:06)
--- NOTE | 2017-05-03 09:31 | P.PN ---
Subjective Progress Note Date: 05/03/17 Principal diagnosis: Acute TN Mr. Oneill is a pleasant 66-year-old gentleman with history of morbid obesity, diabetes, hypertension, dyslipidemia. Presented to the emergency department complaining of abdominal discomfort was ruled in for an acute inferior wall TN. He subsequently underwent catheterization with stenting of the RCA. He did develop some atrial fibrillation with a very slow ventricular response as well as intermittent third degree AV block. He remains on dopamine currently going at 3 mcg. On examination, patient is resting completely embedded. He denies further complaints of nausea. He has no complaints of chest discomfort, dizziness, shortness of breath or syncope. Patient is currently maintaining sinus rhythm with first-degree AV block with occasional PVCs. Objective - Vital Signs Vital signs: Vital Signs Temp 97.9 F 05/03/17 05:00 Pulse 69 05/03/17 07:00 Resp 21 05/03/17 07:00 BP 148/71 05/03/17 07:00 Pulse Ox 91 L 05/03/17 07:00 Intake & Output 05/02/17 05/03/17 05/03/17 18:59 06:59 18:59 Intake Total 282.561 285.965 10 Output Total 0 0 Balance 282.561 285.965 10 Intake: IV 120 120 10 NS 120 120 10 Intake, IV Titration 162.561 165.965 Amount DOPamine DRIP 800 mg In 162.561 165.965 Dextrose/Water 1 500ml. bag @ 2 MCG/KG/MIN 13.94 mls/hr IV .Q24H [facility] Rx#: [id number] Output: Urine 0 0 Other: Voiding Method Toilet Toilet Urinal Urinal # Voids 1 1 - Exam PHYSICAL EXAMINATION: HEENT: Head is atraumatic, normocephalic. Pupils equal, round. Neck is supple. There is no elevated jugular venous pressure. HEART EXAMINATION: Heart sounds regular, S1 and S2 normal. No murmur or gallop heard. CHEST EXAMINATION: Lungs reveal diminished breath sounds bilaterally. No chest wall tenderness is noted on palpation or with deep breathing. ABDOMEN: Soft, obese, nontender. Bowel sounds are heard. No organomegaly noted. EXTREMITIES: Diminished peripheral pulses with no evidence of peripheral edema and changes consistent with venous stasis. NEUROLOGIC patient is awake, alert and oriented x3. . - Labs CBC & Chem 7: 05/03/17 04:43 03/08/18 04:43 Labs: Abnormal Lab Results - Last 24 Hours (Table) 05/02/17 05/02/17 05/02/17 Range/Units 11:52 17:39 20:41 RBC (4.30-5.90) m/uL Hgb (13.0-17.5) gm/dL Hct (39.0-53.0) % Glucose (74-99) mg/dL POC Glucose (mg/dL) 139 H 143 H 144 H (75-99) mg/dL 05/03/17 05/03/17 05/03/17 Range/Units 04:43 04:43 07:02 RBC 3.87 L (4.30-5.90) m/uL Hgb 11.7 L (13.0-17.5) gm/dL Hct 35.6 L (39.0-53.0) % Glucose 133 H (74-99) mg/dL POC Glucose (mg/dL) 145 H (75-99) mg/dL Assessment and Plan Assessment: #1 acute inferior wall TN #2 transient third-degree AV block #3 AV node Wenckebach block #4 transient episode of atrial fibrillation with severe bradycardia #5 morbid obesity #6 status post cardiac stenting to the RCA #7 hypertension #8 hyperlipidemia #9 diabetes Plan: From cardiology perspective, continue to avoid beta blockers. He will decrease dopamine to 2 mcg. Continue to monitor in ICU. Continue current plan and reassess for possible pacemaker implantation. Further recommendations to follow. ANDROID FRAMEWORK DEVELOPER note has been reviewed, I agree with a documented findings and plan of care. Patient was seen and examined.
[2017-05-03] MEDS ORDERED: TERBUTALINE FOR EXTRAVASATION 1 MG/ML VIAL SQ STA (11:33)
[2017-05-03 12:05] LABS: Glucose,Whole Blood 117 mg/dL (75-99)
[2017-05-03] MEDS: DOPamine DRIP 800 MG in DEXTROSE/WATER 1 500ML.BAG IV SCH (13:53)
[2017-05-03 15:44] LABS: Calcium 8.1 mg/dL (8.4-10.2); Magnesium 2.1 mg/dL (1.6-2.3); Phosphorus 3.3 mg/dL (2.5-4.5); Potassium 4.1 mmol/L (3.5-5.1)
[2017-05-03 17:06] LABS: Glucose,Whole Blood 157 mg/dL (75-99)
[2017-05-03 20:32] LABS: Calcium 8.4 mg/dL (8.4-10.2); Magnesium 2.1 mg/dL (1.6-2.3); Phosphorus 3.3 mg/dL (2.5-4.5); Potassium 4.3 mmol/L (3.5-5.1)
[2017-05-03 21:16] LABS: Glucose,Whole Blood 135 mg/dL (75-99)
[2017-05-03] MEDS: ATORVASTATIN 80 MG TAB PO SCH (21:18)
--- NOTE | 2017-05-03 21:56 | PN ---
PROGRESS NOTE DATE OF SERVICE: 05/03/2017 CHIEF COMPLAINT: Re-evaluation. HISTORY OF PRESENT ILLNESS: This 66-year-old gentleman was admitted to the hospital with acute myocardial infarction, inferior wall, with ST elevation. The patient underwent RCA stenting. He has subsequently had episodes of bradycardia and first- and second-degree AV block. He had one episode of significant pause. The patient was also noted to have a brief episode of atrial fibrillation then. The patient actually feels fine otherwise. Denies any chest pain, shortness of breath. No dizziness. No nausea or vomiting. Has had no bowel movements. The patient again was advised not to strain. REVIEW OF SYSTEMS: NEURO: No headaches, dizziness. PSYCH: No anxiety. CARDIAC: No chest pain, angina, palpitation. RESPIRATORY: No shortness of breath, cough, hemoptysis. GI: No nausea, vomiting, abdominal pain, diarrhea. No bowel movement. : No symptoms of dysuria or hematuria. EXTREMITIES: Denies pain. CONSTITUTIONAL: No fever or chills. PHYSICAL EXAMINATION: Pleasant gentleman in no distress. Vital signs reveal temperature 98.1, pulse 74, respirations 23, blood pressure 106/60, pulse ox 93%. HEENT: Normocephalic. NECK: No JVD. CHEST: Clear to auscultation. CARDIAC: Normal S1, S2 with no gallop. Systolic murmur 2/6, left sternal border and right second intercostal space. ABDOMEN: Soft. Bowel sounds present. Extremities reveal no edema. The patient has an Unna boot on the left lower leg. Neurologically awake, alert, oriented x3 with well-coordinated movements. LABORATORY ASSESSMENT: On telemetry patient was noted to have second-degree AV block intermittently. Electrolytes are normal, potassium and magnesium normal. ASSESSMENT: 1. Status post acute myocardial infarction. 2. Second-degree AV block. 3. Hypertension. 4. Diabetes mellitus. 5. Morbid obesity. 6. Chronic venostasis. 7. Stasis dermatitis. PLAN: The patient is stable. Continue present medical regimen. The patient's condition was discussed with the patient. Prognosis is guarded. He is on a small dose of dopamine to try and maintain his heart rate up. The patient is being followed by the mammography tech. MMODL / IJN: [id number] /
[2017-05-04 07:19] LABS: Glucose,Whole Blood 103 mg/dL (75-99)
[2017-05-04] MEDS: INSULIN ASPART 100 UNIT/ML 1 ML 10 ML VIAL SQ SCH ×4 (08:00→20:34)
[2017-05-04] MEDS: GLIMEPIRIDE 2 MG TAB PO SCH (08:01)
[2017-05-04] MEDS: CLOPIDOGREL 75 MG TAB PO SCH (08:01)
[2017-05-04] MEDS: LISINOPRIL 10 MG TAB PO SCH (08:01)
[2017-05-04] MEDS: ASPIRIN 325 MG TAB PO SCH (08:01)
[2017-05-04] MEDS: SPIRONOLACTONE 25 MG TAB PO SCH (08:02)
[2017-05-04 08:22] LABS: HCT 36.6 % (39.0-53.0); HGB 12.6 gm/dL (13.0-17.5); MCH 31.9 pg (25.0-35.0); MCHC 34.3 g/dL (31.0-37.0); Mean Platelet Volume 7.3; Platelet Count 254 k/uL (150-450); RBC 3.93 m/uL (4.30-5.90); RDW 13.3 % (11.5-15.5); WBC 5.8 k/uL (3.8-10.6)
[2017-05-04 08:40] LABS: Anion Gap 7 mmol/L; Blood Urea Nitrogen 17 mg/dL (9-20); Calcium 8.4 mg/dL (8.4-10.2); Carbon Dioxide 26 mmol/L (22-30); Chloride 106 mmol/L (98-107); Glucose 123 mg/dL (74-99); Magnesium 2.1 mg/dL (1.6-2.3); Phosphorus 3.7 mg/dL (2.5-4.5); Potassium 4.3 mmol/L (3.5-5.1); Sodium 139 mmol/L (137-145)
[2017-05-04] MEDS ORDERED: MAGNESIUM HYDROXIDE 2,400 MG/10 ML CUP PO PRN (09:57)
--- NOTE | 2017-05-04 11:44 | P.PN ---
Subjective Patient is sitting comfortably in a chair. He is on 1 Howard dopamine now. He is in sinus rhythm with a prolonged HI interval heart rate in the 60s Yesterday he had intermittent 21 heart block he is not in any beta blockers on account of this urine though he is post MD, inferior wall day 4-5 On examination Blood pressure is 151/70 147/66 mmHg pulse rate in the 70s and 60s first-degree AV block Heart sounds S1 and S2 are soft no murmurs or gallops no rub Breath sounds are clear no rhonchi no crackles Abdomen soft nontender Impression Inferior wall MD Intermittent third-degree heart block that has resolved Intermittent 2-1 heart block that continues Today he is first-degree AV block on 1 michelle of dopamine Blood pressure mildly elevated Suggest Increase lisinopril to Toprol 50 mg by mouth daily and continue 1 michelle of dopamine tomorrow it'll be turned off and we'll reevaluate the weekend. Objective - Vital Signs Vital signs: Vital Signs Temp 98.1 F 05/04/17 08:00 Pulse 70 05/04/17 11:00 Resp 28 H 05/04/17 11:00 BP 151/71 05/04/17 11:00 Pulse Ox 98 05/04/17 11:00 Intake & Output 05/03/17 05/04/17 05/04/17 18:59 06:59 18:59 Intake Total 2864.035 840.094 0296 Output Total 0 0 0 Balance 2864.035 541.224 2935 Intake: IV 130 110 50 NS 130 110 50 Intake, IV Titration 334.035 204.453 Amount DOPamine DRIP 800 mg In 334.035 204.453 Dextrose/Water 1 500ml. bag @ 2 MCG/KG/MIN 13.94 mls/hr IV .Q24H [facility] Rx#: [id number] Oral 2400 990 Output: Urine 0 0 0 Other: Voiding Method Toilet Toilet Toilet Urinal # Voids 1 1 1 - Labs CBC & Chem 7: 05/04/17 08:10 05/04/17 08:10 Labs: Abnormal Lab Results - Last 24 Hours (Table) 05/03/17 05/03/17 05/03/17 Range/Units 12:03 15:26 17:04 RBC (4.30-5.90) m/uL Hgb (13.0-17.5) gm/dL Hct (39.0-53.0) % Glucose (74-99) mg/dL POC Glucose (mg/dL) 117 H 157 H (75-99) mg/dL Calcium 8.1 L (8.4-10.2) mg/dL 05/03/17 05/04/17 05/04/17 Range/Units 21:15 07:17 08:10 RBC 3.93 L (4.30-5.90) m/uL Hgb 12.6 L (13.0-17.5) gm/dL Hct 36.6 L (39.0-53.0) % Glucose (74-99) mg/dL POC Glucose (mg/dL) 135 H 103 H (75-99) mg/dL Calcium (8.4-10.2) mg/dL 05/04/17 Range/Units 08:10 RBC (4.30-5.90) m/uL Hgb (13.0-17.5) gm/dL Hct (39.0-53.0) % Glucose 123 H (74-99) mg/dL POC Glucose (mg/dL) (75-99) mg/dL Calcium (8.4-10.2) mg/dL
[2017-05-04 12:07] LABS: Glucose,Whole Blood 193 mg/dL (75-99)
[2017-05-04] MEDS ORDERED: LACTULOSE 20 GM/30 ML CUP PO ONE (12:42)
[2017-05-04 17:13] LABS: Glucose,Whole Blood 115 mg/dL (75-99)
[2017-05-04] MEDS: DOPamine DRIP 800 MG in DEXTROSE/WATER 1 500ML.BAG IV SCH (18:55)
[2017-05-04 20:25] LABS: Glucose,Whole Blood 184 mg/dL (75-99)
[2017-05-04] MEDS: LISINOPRIL 5 MG TAB PO SCH (20:34)
[2017-05-04] MEDS: ATORVASTATIN 80 MG TAB PO SCH (20:34)
[2017-05-04 20:35] LABS: Glucose,Whole Blood 163 mg/dL (75-99)
--- NOTE | 2017-05-04 22:42 | PN ---
PROGRESS NOTE ATTENDING PHYSICIAN: Dr. Cristina Marshall. CHIEF COMPLAINT: Re-evaluation. HISTORY OF PRESENT ILLNESS: This is a 66-year-old gentleman who was admitted to the hospital with chest pain. The patient was noted to have inferior wall PR. He underwent stent placement. The patient has been doing well, except the patient has 2nd degree AV block intermittently and detected a 3rd-degree AV block yesterday. The patient is on a low-dose dopamine. His heart rate is 80. He is in sinus rhythm with 1st-degree AV block today. Denies any other associated symptoms. No headaches, dizziness. No chest pain. No shortness of breath. The patient otherwise feels well. REVIEW OF SYSTEMS: NEURO: No headaches, dizziness. PSYCH: No anxiety, depression. CARDIAC: No chest pain, angina, palpitations. RESPIRATORY: No shortness of breath, cough, hemoptysis. GI: No nausea, vomiting, abdominal pain, diarrhea. Still no bowel movement. Has been passing gas. The patient has been passing flatus. : No dysuria, hematuria. EXTREMITIES: No pain. CONSTITUTIONAL: No fever, chills. PHYSICAL EXAMINATION: Pleasant gentleman in no distress. Vital signs revealed temperature 97.8, pulse 63, respirations 24, blood pressure 140/69, pulse ox 96% on room air. HEENT: Normocephalic. NECK: No JVD. CHEST: Clear to auscultation. CARDIAC: Normal S1, S2 with no gallop or murmurs. ABDOMEN: Protuberant. Bowel sounds active. Extremities reveal no edema. Has a compression dressing, left leg. NEUROLOGIC: Awake, alert, oriented x3 with well-coordinated movements. LAB ASSESSMENT: CBC showed hemoglobin of 12.6. Glucose 123. Electrolytes, BUN, creatinine normal. ASSESSMENT: 1. Status post acute myocardial infarction, inferior wall. 2. Variable cardiac heart blocks, at present in sinus rhythm. 3. Diabetes mellitus. 4. Morbid obesity. PLAN: The patient is stable. Continue present medical regimen. Patient's condition discussed with the patient. Prognosis guarded. The patient to receive a dose of lactulose. He also received some milk of magnesia and prune juice earlier. The patient's condition is stable at present. MMODL / IJN: [id number] /
[2017-05-04] MEDS: traMADol 50 MG TAB PO PRN (23:41)
[2017-05-05 05:00] LABS: HCT 33.7 % (39.0-53.0); HGB 11.7 gm/dL (13.0-17.5); MCH 31.7 pg (25.0-35.0); MCHC 34.7 g/dL (31.0-37.0); MCV 91.6 fL (80.0-100.0); Mean Platelet Volume 7.3; Platelet Count 220 k/uL (150-450); RBC 3.68 m/uL (4.30-5.90); WBC 6.2 k/uL (3.8-10.6)
[2017-05-05 05:20] LABS: Anion Gap 8 mmol/L; Blood Urea Nitrogen 15 mg/dL (9-20); Calcium 8.3 mg/dL (8.4-10.2); Carbon Dioxide 28 mmol/L (22-30); Chloride 103 mmol/L (98-107); Glucose 96 mg/dL (74-99); Phosphorus 4.1 mg/dL (2.5-4.5); Potassium 4.2 mmol/L (3.5-5.1); Sodium 139 mmol/L (137-145)
[2017-05-05 07:19] LABS: Glucose,Whole Blood 103 mg/dL (75-99)
[2017-05-05] MEDS: INSULIN ASPART 100 UNIT/ML 1 ML 10 ML VIAL SQ SCH ×4 (07:25→20:42)
[2017-05-05] MEDS: ASPIRIN 325 MG TAB PO SCH (08:22)
[2017-05-05] MEDS: SPIRONOLACTONE 25 MG TAB PO SCH (08:22)
[2017-05-05] MEDS: CLOPIDOGREL 75 MG TAB PO SCH (08:22)
[2017-05-05] MEDS: LISINOPRIL 10 MG TAB PO SCH (08:22)
[2017-05-05] MEDS: GLIMEPIRIDE 2 MG TAB PO SCH (08:22)
--- NOTE | 2017-05-05 10:40 | P.PN ---
Subjective Progress Note Date: 05/05/17 Principal diagnosis: Acute microinfarction History present illness: This 66-year-old gentleman was admitted to the hospital with acute myocardial infarction inferior wall. The patient had stent placements in the RCA. Patient following this has had no further symptoms of angina shortness of breath. He did have episodes of sinus pauses and first second and third-degree heart block. The patient doesn't seem to had any second -degree or third-degree block for the past 18 hours now hours now. Denies any symptoms of dizziness chest pain or shortness of breath. He did have a bowel movement. Denies any other associated symptoms pressure is adequately controlled. REVIEW OF SYSTEMS: Neuro: Denies any headaches dizziness. Psych: Denies anxiety depression feels oriented. Cardiac: Denies chest pain and angina palpitations. Respiratory: Denies shortness of breath cough. GI: Denies nausea vomiting or abdominal pain. No diarrhea or constipation, no bowel movement yet. : Denies dysuria hematuria. Extremities: Denies pain. No edema. Skin: Intact. Constitutional: No fever, chills. Objective - Vital Signs Vital signs: Vital Signs Temp 97.9 F 05/05/17 08:00 Pulse 62 05/05/17 10:00 Resp 13 05/05/17 10:00 BP 140/60 05/05/17 10:00 Pulse Ox 94 L 05/05/17 10:00 Intake & Output 05/04/17 05/05/17 05/05/17 18:59 06:59 18:59 Intake Total 2020.136 157.209 280 Output Total 0 0 0 Balance 2020.136 157.209 280 Intake: IV 130 110 20 NS 130 110 20 Intake, IV Titration 100.136 47.209 Amount DOPamine DRIP 800 mg In 100.136 47.209 Dextrose/Water 1 500ml. bag @ 2 MCG/KG/MIN 13.94 mls/hr IV .Q24H [facility] Rx#: [id number] Oral 1790 260 Output: Urine 0 0 0 Other: Voiding Method Toilet Toilet # Voids 1 1 # Bowel Movements 1 PHYSICAL EXAMINATION: Cooperative, at present in no acute distress. HEENT: Neck supple difficult to assess for JVD carotid bruits Chest: Clear to auscultation Cardiac: Normal S1-S2 no gallops no murmur . Abdomen: Soft bowel sounds present. Extremities: No edema no tenderness Neurologically: Awake, alert, oriented with well-coordinated movements. - Labs CBC & Chem 7: 05/05/17 04:35 05/05/17 04:35 Labs: Abnormal Lab Results - Last 24 Hours (Table) 05/04/17 05/04/17 05/04/17 Range/Units 12:04 17:10 20:23 RBC (4.30-5.90) m/uL Hgb (13.0-17.5) gm/dL Hct (39.0-53.0) % POC Glucose (mg/dL) 193 H 115 H 184 H (75-99) mg/dL Calcium (8.4-10.2) mg/dL 05/04/17 05/05/17 05/05/17 Range/Units 20:33 04:35 04:35 RBC 3.68 L (4.30-5.90) m/uL Hgb 11.7 L (13.0-17.5) gm/dL Hct 33.7 L (39.0-53.0) % POC Glucose (mg/dL) 163 H (75-99) mg/dL Calcium 8.3 L (8.4-10.2) mg/dL 05/05/17 Range/Units 07:16 RBC (4.30-5.90) m/uL Hgb (13.0-17.5) gm/dL Hct (39.0-53.0) % POC Glucose (mg/dL) 103 H (75-99) mg/dL Calcium (8.4-10.2) mg/dL Assessment and Plan Assessment: ASSESSMENT: 1. Status post acute myocardial infarction ST elevated inferior wall. 2. Completed heart block resolved. 3. Second degree heart block seems to have resolved. 4. First degree AV block. 5. Diabetes mellitus controlled. 6. Morbid Obesity. 7. Obstructive sleep apnea on CPAP. 8. Chronic venous stasis dermatitis. PLAN: Continue present medical regimen the patient if does not of any further high degree blocks may not require pacemaker. We will have the patient transferred to telemetry and ambulated.
[2017-05-05 12:16] LABS: Glucose,Whole Blood 101 mg/dL (75-99)
[2017-05-05 17:02] LABS: Glucose,Whole Blood 137 mg/dL (75-99)
[2017-05-05] MEDS: guaiFENesin-DM 100-10MG/5ML 10 ML CUP PO PRN (18:53)
[2017-05-05] MEDS: LISINOPRIL 5 MG TAB PO SCH (19:28)
[2017-05-05] MEDS: ATORVASTATIN 80 MG TAB PO SCH (19:28)
[2017-05-05 21:01] LABS: Glucose,Whole Blood 115 mg/dL (75-99)
[2017-05-05] MEDS: traMADol 50 MG TAB PO PRN (22:56)
[2017-05-06] MEDS: INSULIN ASPART 100 UNIT/ML 1 ML 10 ML VIAL SQ SCH ×4 (06:20→23:26)
[2017-05-06 06:25] LABS: Glucose,Whole Blood 110 mg/dL (75-99)
[2017-05-06] MEDS: GLIMEPIRIDE 2 MG TAB PO SCH (06:39)
[2017-05-06 07:02] LABS: HCT 35.1 % (39.0-53.0); HGB 12.1 gm/dL (13.0-17.5); MCH 30.9 pg (25.0-35.0); MCHC 34.4 g/dL (31.0-37.0); Mean Platelet Volume 6.9; Platelet Count 306 k/uL (150-450); RBC 3.91 m/uL (4.30-5.90); RDW 12.9 % (11.5-15.5)
[2017-05-06 07:21] LABS: Anion Gap 8 mmol/L; Blood Urea Nitrogen 14 mg/dL (9-20); Calcium 8.3 mg/dL (8.4-10.2); Carbon Dioxide 28 mmol/L (22-30); Chloride 104 mmol/L (98-107); Glucose 116 mg/dL (74-99); Phosphorus 4.5 mg/dL (2.5-4.5); Sodium 140 mmol/L (137-145)
[2017-05-06] MEDS: SPIRONOLACTONE 25 MG TAB PO SCH (08:13)
[2017-05-06] MEDS: LISINOPRIL 10 MG TAB PO SCH (08:13)
[2017-05-06] MEDS: ASPIRIN 325 MG TAB PO SCH (08:13)
[2017-05-06] MEDS: CLOPIDOGREL 75 MG TAB PO SCH (08:14)
[2017-05-06] MEDS ORDERED: ceFAZolin IN SWFI 2 GM/20 ML SYRINGE IVP ONE (10:59)
[2017-05-06] MEDS ORDERED: ceFAZolin 1,000 MG in SODIUM CHLORIDE 0.9% IRRIGATIO 250 ML IRRIGATION ONE (10:59)
--- NOTE | 2017-05-06 11:09 | P.PN ---
Subjective Patient remains in sinus rhythm off dopamine now but he had a long pause once again last evening. He is bradycardia with first-degree AV block post myocardial infarction, multiple RCA stents. He is not on beta blockers although beta blockers are indicated On examination he is afebrile 90F, pulse rate in the 70s, respirations normal he looks comfortable blood pressure 112/86 mmHg Breath sounds are clear no rhonchi or crackles Heart sounds S1 and S2 are soft and normal Abdomen is soft Impression Acute myocardial infarction inferior wall. Status post coronary stenting to the proximal RCA mid RCA and distal RCA Morbid obesity Initially the patient had intermittent third degree heart block, later second degree heart block in 2-1 block and was on dopamine for several days did dopamine has been turned off since Sunday morning but he continues to have pauses. Baseline MT interval is prolonged It has now been almost 7 days since he is observed this patient and have not been able to restart his beta blockers as he continues to have significant bradycardia with pauses intermittently After detailed discussion the patient I would now proceed with a SECURITY MANAGEMENT SPECIALIST pacemaker to address his bradycardia, allow appropriate therapy with beta blockers. It is anticipated that his RV pacing percentage will be high hence the recommendation for SECURITY MANAGEMENT SPECIALIST/physiologic septal pacing Left ventricular systolic function 45-50%, mildly impaired inferior wall hypokinesis Objective - Vital Signs Vital signs: Vital Signs Temp 98 F 05/06/17 06:45 Pulse 74 05/06/17 06:45 Resp 18 05/06/17 06:45 BP 112/86 05/06/17 06:45 Pulse Ox 93 L 05/06/17 06:45 Intake & Output 05/05/17 05/06/17 05/06/17 17:59 06:59 18:59 Intake Total 160 Output Total Balance 160 Weight Intake: IV NS Oral 160 Output: Urine Other: Voiding Method # Voids - Labs CBC & Chem 7: 05/06/17 06:36 05/06/17 06:36 Labs: Abnormal Lab Results - Last 24 Hours (Table) 05/05/17 05/05/17 05/05/17 Range/Units 12:15 17:01 20:33 RBC (4.30-5.90) m/uL Hgb (13.0-17.5) gm/dL Hct (39.0-53.0) % Glucose (74-99) mg/dL POC Glucose (mg/dL) 101 H 137 H 115 H (75-99) mg/dL Calcium (8.4-10.2) mg/dL 05/06/17 05/06/17 05/06/17 Range/Units 06:20 06:36 06:36 RBC 3.91 L (4.30-5.90) m/uL Hgb 12.1 L (13.0-17.5) gm/dL Hct 35.1 L (39.0-53.0) % Glucose 116 H (74-99) mg/dL POC Glucose (mg/dL) 110 H (75-99) mg/dL Calcium 8.3 L (8.4-10.2) mg/dL
[2017-05-06 11:38] LABS: Glucose,Whole Blood 93 mg/dL (75-99)
--- NOTE | 2017-05-06 12:03 | P.PN ---
Subjective Progress Note Date: 05/06/17 Principal diagnosis: Acute microinfarction This 66-year-old gentleman was admitted to the hospital with acute inferior wall myocardial infarction. He did undergo cardiac catheterization and 4 stents placed into the right coronary artery. He subsequently has developed at times intermittent blocks. He is constantly and first-degree AV block at times and second-degree AV block and occasionally third-degree block. The patient after a week now still continuing to have that is planned for a pacemaker tomorrow. Patient denies any symptoms of chest pain shortness of breath. REVIEW OF SYSTEMS: Neuro: Denies any headaches dizziness. Psych: Denies anxiety depression feels oriented. Cardiac: Denies chest pain and angina palpitations. Respiratory: Denies shortness of breath cough. GI: Denies nausea vomiting or abdominal pain. No diarrhea or constipation, no bowel movement yet. : Denies dysuria hematuria. Extremities: Denies pain. No edema. Skin: Intact. Constitutional: No fever, chills. Objective - Vital Signs Vital signs: Vital Signs Temp 98 F 05/06/17 06:45 Pulse 70 05/06/17 11:31 Resp 17 05/06/17 11:31 BP 138/82 05/06/17 11:31 Pulse Ox 95 05/06/17 11:31 Intake & Output 05/05/17 05/06/17 05/06/17 17:59 06:59 18:59 Intake Total 160 Output Total Balance 160 Weight Intake: IV NS Oral 160 Output: Urine Other: Voiding Method Toilet # Voids PHYSICAL EXAMINATION: Cooperative, at present in no acute distress. HEENT: Neck supple. Chest: Clear to auscultation percussion. Cardiac: Normal S1-S2 no gallops no murmur . Abdomen: Soft bowel sounds present. Extremities: No edema no tenderness is stasis dermatitis both lower legs. Left leg Unna boots off patient has very dry skin, Neurologically: Awake, alert, oriented with well-coordinated movements. - Labs CBC & Chem 7: 05/06/17 06:36 05/06/17 06:36 Labs: Abnormal Lab Results - Last 24 Hours (Table) 05/05/17 05/05/17 05/05/17 Range/Units 12:15 17:01 20:33 RBC (4.30-5.90) m/uL Hgb (13.0-17.5) gm/dL Hct (39.0-53.0) % Glucose (74-99) mg/dL POC Glucose (mg/dL) 101 H 137 H 115 H (75-99) mg/dL Calcium (8.4-10.2) mg/dL 05/06/17 05/06/17 05/06/17 Range/Units 06:20 06:36 06:36 RBC 3.91 L (4.30-5.90) m/uL Hgb 12.1 L (13.0-17.5) gm/dL Hct 35.1 L (39.0-53.0) % Glucose 116 H (74-99) mg/dL POC Glucose (mg/dL) 110 H (75-99) mg/dL Calcium 8.3 L (8.4-10.2) mg/dL Assessment and Plan Assessment: ASSESSMENT: 1. Status post acute myocardial infarction ST elevated inferior wall. 2. Completed heart block resolved. 3. Second degree heart block seems to have resolved. 4. First degree AV block. 5. Diabetes mellitus controlled. 6. Morbid Obesity. 7. Obstructive sleep apnea on CPAP. 8. Chronic venous stasis dermatitis. PLAN: Continue present medical regimen the patient if does not of any further high degree blocks planned pacemaker. We will have the patient ambulate in the corridors
[2017-05-06] MEDS: SODIUM CHLORIDE 0.9% 1,000 ML IV SCH ×2 (16:41→16:42)
[2017-05-06 17:01] LABS: Glucose,Whole Blood 153 mg/dL (75-99)
[2017-05-06] MEDS: LISINOPRIL 5 MG TAB PO SCH (21:04)
[2017-05-06] MEDS: ATORVASTATIN 80 MG TAB PO SCH (21:04)
[2017-05-06 21:15] LABS: Glucose,Whole Blood 94 mg/dL (75-99)
[2017-05-06] MEDS: guaiFENesin-DM 100-10MG/5ML 10 ML CUP PO PRN (21:37)
[2017-05-06] MEDS: traMADol 50 MG TAB PO PRN (23:28)
[2017-05-07] MEDS: GLIMEPIRIDE 2 MG TAB PO SCH (06:34)
[2017-05-07] MEDS: SODIUM CHLORIDE 0.9% 1,000 ML IV SCH ×5 (06:35→20:49)
[2017-05-07] MEDS: INSULIN ASPART 100 UNIT/ML 1 ML 10 ML VIAL SQ SCH ×4 (06:39→21:23)
[2017-05-07 06:51] LABS: Glucose,Whole Blood 112 mg/dL (75-99)
[2017-05-07] MEDS: SPIRONOLACTONE 25 MG TAB PO SCH (09:18)
[2017-05-07] MEDS: CLOPIDOGREL 75 MG TAB PO SCH (09:18)
[2017-05-07] MEDS: LISINOPRIL 10 MG TAB PO SCH (09:18)
[2017-05-07] MEDS: ASPIRIN 325 MG TAB PO SCH (09:18)
[2017-05-07] MEDS ORDERED: ceFAZolin 1,000 MG in SODIUM CHLORIDE 0.9% IRRIGATIO 250 ML IRRIGATION ONE (11:42)
[2017-05-07] MEDS ORDERED: ceFAZolin IN SWFI 2 GM/20 ML SYRINGE IVP ONE (11:44)
[2017-05-07 12:50] LABS: Glucose,Whole Blood 115 mg/dL (75-99)
--- NOTE | 2017-05-07 16:09 | P.PN ---
Subjective Patient remains bradycardic KS is prolonged Pauses noted Beta blockers have not been initiated post NE on account of significant AV node disease as well as Sick Sinus Syndrome He denies any chest discomfort or undue shortness of breath at rest On examination he is afebrile pulse rate in the 60s and 70s blood pressure 128/ 58 mmHg Breath sounds are clear no rhonchi no crackles heart sounds are normal Abdomen soft nontender Impression Acute myocardial infarction, inferior wall Status post coronary stenting Third degree AV block second degree AV block intermittent Sick sinus syndrome and bradycardia Inability to start beta blockers on account of recurrent intermittent bradycardia secondary to both AV node disease and Sick Sinus Syndrome Mild cardiomyopathy ejection fraction 45%, ischemic Detailed discussion with the patient and family It is now up in 7 days post NE and we will proceed with dual-chamber COMPUTER OPERATIONS MANAGER Anticipated RV pacing percentage with dual-chamber pacing is high close to 100% Avoid RV pacing Objective - Vital Signs Vital signs: Vital Signs Temp 98 F 05/07/17 04:00 Pulse 70 05/07/17 07:57 Resp 22 05/07/17 07:57 BP 128/58 05/07/17 07:55 Pulse Ox 93 L 05/07/17 07:55 Intake & Output 05/06/17 05/07/17 05/07/17 18:59 06:59 18:59 Intake Total 515 200 Balance 515 200 Weight 192 kg Intake: Oral 515 200 Other: Voiding Method Toilet Toilet Toilet # Voids 2 1 - Labs CBC & Chem 7: 05/06/17 06:36 05/06/17 06:36 Labs: Abnormal Lab Results - Last 24 Hours (Table) 05/06/17 05/07/17 05/07/17 Range/Units 16:57 06:36 12:29 POC Glucose (mg/dL) 153 H 112 H 115 H (75-99) mg/dL
[2017-05-07 17:11] LABS: Glucose,Whole Blood 142 mg/dL (75-99)
--- NOTE | 2017-05-07 18:53 | P.PN ---
Subjective Progress Note Date: 05/07/17 Principal diagnosis: Acute microinfarction chief complaint: Reevaluation. History present illness: This 66-yea-old gentleman was admitted to the hospital with an acute myocardial infarction, ST elevated. Did have cardiac catheterization and stents Postprocedure patient was monitored in the ICU. He did have significant A-V block. Despite being a week now, due to intermittent blocks the patient is scheduled to undergo a permanent pacemaker today.he denies any chest pain, shortness breath, dizziness,. Patient does have history of obstructive on CPAP he is morbidly obese. Patient also has underlying history of diabetes mellitus. Her sugars adequately controlled. Chronic venous with a recent stasis ulceration left lower leg healed. Does have some chronic stasis dermatitis of the lower legs. REVIEW OF SYSTEMS: Neuro:[ Denies any headaches dizziness.] Psych: [Denies anxiety depression feels oriented.] Cardiac: [Denies chest pain and angina palpitations.] Respiratory: [Denies shortness of breath cough]. GI: [Denies nausea vomiting or abdominal pain. No diarrhea or constipation, no bowel movement yet.] :[ Denies dysuria hematuria.] Extremities:[ Denies pain. No edema.] Skin:[ Intact]. Constitutional: [No fever, chills.] Objective - Vital Signs Vital signs: Vital Signs Temp 97.4 F L 05/07/17 16:00 Pulse 69 05/07/17 16:00 Resp 18 05/07/17 16:00 BP 152/71 05/07/17 16:00 Pulse Ox 93 L 05/07/17 07:55 Intake & Output 05/06/17 05/07/17 05/07/17 18:59 06:59 18:59 Intake Total 515 200 Balance 515 200 Weight 192 kg Intake: Oral 515 200 Other: Voiding Method Toilet Toilet Toilet # Voids 2 1 PHYSICAL EXAMINATION: Cooperative, at present in no acute distress. HEENT: [Neck supple. No JVD.] Chest: [Clear to auscultation] Cardiac: [Normal S1-S2] [no gallops] [no murmur ]. Abdomen:[ Soft ][bowel sounds present.] Extremities: [No edema] [no tenderness ] Neurologically: [Awake, alert, oriented with well-coordinated movements.] - Labs CBC & Chem 7: 05/06/17 06:36 05/06/17 06:36 Labs: Abnormal Lab Results - Last 24 Hours (Table) 05/07/17 05/07/17 05/07/17 Range/Units 06:36 12:29 17:04 POC Glucose (mg/dL) 112 H 115 H 142 H (75-99) mg/dL Assessment and Plan Assessment: ASSESSMENT: 1. Status post acute myocardial infarction ST elevated inferior wall. 2. Completed heart block resolved. 3. Second degree heart block seems to have resolved. 4. First degree AV block. 5. Diabetes mellitus controlled. 6. Morbid Obesity. 7. Obstructive sleep apnea on CPAP. 8. Chronic venous stasis dermatitis. PLAN: Continue present medical regimen the patient is scheduled to undergo a permanent pacemaker implantation today. Potential discharge home tomorrow.
[2017-05-07] MEDS: ATORVASTATIN 80 MG TAB PO SCH (20:48)
[2017-05-07] MEDS: LISINOPRIL 5 MG TAB PO SCH (20:48)
[2017-05-07 21:04] LABS: Glucose,Whole Blood 103 mg/dL (75-99)
[2017-05-07] MEDS: traMADol 50 MG TAB PO PRN (23:31)
[2017-05-08] MEDS: SODIUM CHLORIDE 0.9% 1,000 ML IV SCH ×6 (03:47→22:59)
[2017-05-08] MEDS ORDERED: ceFAZolin IN SWFI 2 GM/20 ML SYRINGE IVP ONE ×2 (06:00→14:45)
[2017-05-08] MEDS ORDERED: ceFAZolin 1,000 MG in SODIUM CHLORIDE 0.9% IRRIGATIO 250 ML IRRIGATION ONE ×2 (06:00→14:45)
[2017-05-08] MEDS: GLIMEPIRIDE 2 MG TAB PO SCH (06:22)
[2017-05-08 06:41] LABS: Glucose,Whole Blood 128 mg/dL (75-99)
[2017-05-08] MEDS: INSULIN ASPART 100 UNIT/ML 1 ML 10 ML VIAL SQ SCH ×4 (06:42→21:40)
[2017-05-08 07:19] LABS: Anion Gap 11 mmol/L; Blood Urea Nitrogen 15 mg/dL (9-20); Calcium 9.1 mg/dL (8.4-10.2); Carbon Dioxide 23 mmol/L (22-30); Chloride 107 mmol/L (98-107); Glucose 132 mg/dL (74-99); Potassium 4.4 mmol/L (3.5-5.1); Sodium 141 mmol/L (137-145)
[2017-05-08] MEDS: SPIRONOLACTONE 25 MG TAB PO SCH (09:40)
[2017-05-08] MEDS: ASPIRIN 325 MG TAB PO SCH (09:40)
[2017-05-08] MEDS: CLOPIDOGREL 75 MG TAB PO SCH (09:40)
[2017-05-08] MEDS: LISINOPRIL 20 MG TAB PO SCH (09:44)
[2017-05-08 11:15] VITALS: BMI 58.8
[2017-05-08 12:13] LABS: Glucose,Whole Blood 116 mg/dL (75-99)
[2017-05-08] MEDS ORDERED: ceFAZolin 1,000 MG in DEXTROSE/WATER 1 50ML.BAG IVPB STA (13:21)
[2017-05-08] MEDS ORDERED: SODIUM CHLORIDE 0.9% 250 ML IV ONE (14:00)
[2017-05-08] MEDS ORDERED: IOHEXOL 350 MG/ML 50ML BOTTLE INJ ONE (14:22)
[2017-05-08] MEDS ORDERED: LIDOCAINE 2% INJ 20 MG/ML SQ ONE (14:34)
[2017-05-08] MEDS: LIDOCAINE 1% INJ 10MG/ML (20 ML MDV) SQ ONE ×2 (15:27→15:32)
[2017-05-08] MEDS ORDERED: LIDOCAINE 1% INJ 10MG/ML (20 ML MDV) SQ ONE ×2 (15:44)
--- NOTE | 2017-05-08 18:02 | P.PN ---
Subjective Progress Note Date: 05/08/17 Principal diagnosis: Acute microinfarction History present illness: This 66-year-old gentleman was admitted to the hospital with an acute myocardial infarction. The patient has developed intermittent complete heart block and at times second-degree AV block. The patient is awaiting pacemaker today. The patient has no symptoms at present of any chest pain, shortness breath or dizziness. The patient does have history of diabetes mellitus adequately controlled history of hyperlipidemia on medical therapy. Patient is on TOSHA inhibitor and Aldactone. His ejection fraction on echo was 45%. REVIEW OF SYSTEMS: Neuro: Denies any headaches dizziness. Psych: Denies anxiety depression feels oriented. Cardiac: Denies chest pain and angina palpitations. Respiratory: Denies shortness of breath cough. GI: Denies nausea vomiting or abdominal pain. No diarrhea or constipation, no bowel movement yet. : Denies dysuria hematuria. Extremities: Denies pain. No edema. Skin: Intact. Constitutional: No fever, chills. Objective - Vital Signs Vital signs: Vital Signs Temp 97.4 F L 05/08/17 08:00 Pulse 67 05/08/17 12:00 Resp 16 05/08/17 04:00 BP 120/56 05/08/17 12:00 Pulse Ox 95 05/08/17 12:00 Intake & Output 05/07/17 05/08/17 05/08/17 18:59 06:59 18:59 Intake Total 200 250 Balance 200 250 Weight 191.4 kg 191.4 kg Intake: Intake, IV Titration 250 Amount Sodium Chloride 0.9% 1, 250 000 ml @ 50 mls/hr IV . Q20H [facility] Rx#:[id number] Oral 200 Other: Voiding Method Toilet # Voids 1 1 PHYSICAL EXAMINATION: Cooperative, at present in no acute distress. HEENT: Neck supple. No JVD. Chest: Clear to auscultation percussion. Cardiac: Normal S1-S2 no gallops no murmur . Abdomen: Soft bowel sounds present. Extremities: Mild edema right leg edema no tenderness Neurologically: Awake, alert, oriented with well-coordinated movements. - Labs CBC & Chem 7: 05/06/17 06:36 05/08/17 06:41 Labs: Abnormal Lab Results - Last 24 Hours (Table) 05/07/17 05/08/17 05/08/17 Range/Units 20:59 06:38 06:41 Glucose 132 H (74-99) mg/dL POC Glucose (mg/dL) 103 H 128 H (75-99) mg/dL 05/08/17 Range/Units 11:52 Glucose (74-99) mg/dL POC Glucose (mg/dL) 116 H (75-99) mg/dL Assessment and Plan Assessment: ASSESSMENT: 1. Status post acute myocardial infarction ST elevated inferior wall. 2. Completed heart block intermittent 3. Second degree heart block . 4. First degree AV block. 5. Diabetes mellitus controlled. 6. Morbid Obesity. 7. Obstructive sleep apnea on CPAP. 8. Chronic venous stasis dermatitis. PLAN: Continue present medical regimen the patient is scheduled to undergo a permanent pacemaker implantation today. Potential discharge home tomorrow. May need to use small dose diuretic
--- NOTE | 2017-05-08 19:09 | P.PCN ---
Preoperative Diagnosis: Transvenous temporary pacing procedure Indication for the procedure: Severe underlying bradycardia Patient was brought to the EP lab in a fasting state. Written informed consent was obtained prior to the procedure. The right groin was prepped and draped as a protocol. A 6-N[place] sheath was placed in the right femoral vein. Via this, a temporary pacing catheter was placed in the right ventricle. Thresholds were interrogated. Temporary pacing was performed through the rest of the procedure. At the end of the entire procedure, the TVP was removed. The sheath was removed and hemostasis was assured. Patient tolerated the procedure well without any acute complications. Procedure performed Transvenous temporary pacing
[2017-05-08] MEDS: HYDROcodone/APAP 5-325MG 1 EACH TAB PO PRN ×2 (19:44→23:16)
[2017-05-08] MEDS ORDERED: ACETAMINOPHEN IV (For NPO) 1,000 MG in EMPTY BAG 1 BAG IVPB ONE (20:00)
--- NOTE | 2017-05-08 20:01 | CE ---
CARDIAC ELECTROPHYSIOLOGY REPORT Luis Oneill is a 66-year-old male patient who had an inferior wall ND and subsequently had third-degree heart block, 2:1 heart block, and intermittent second- degree heart block; and despite waiting for his full 7 days, he continued to have intermittent episodes of bradycardia with pauses. He was not treated with beta blockers even though he was post ND. Electrolytes were normal. Therefore, after 7 days, a decision was made to proceed with permanent pacing. The likelihood of RV pacing percentage greater than 40 was high, given the fact that he had severe AV node disease that had not improved following the inferior wall ND even a week later. Therefore a decision was made to proceed with a LIFT MANAGER pacemaker. His left ventricular ejection fraction is about 45%. The patient was brought to the EP lab in a fasting state. Written informed consent was obtained prior to the procedure. First a TVP was placed via the right femoral vein; please see dictation separately. Following that, the left pectoral area was prepped and draped as per protocol. Lidocaine 1% was used for local anesthesia. Three leads were positioned in the right heart. First the RV lead was placed. He had a very large left atrium and right ventricle and therefore an ICD lead was selected for stability, both in view of his high pressures as well as an ejection fraction of about 45%. This was screwed in the low to mid RV septum. This was a Medtronic model #6935, 65 cm in length, and serial #[id number]. The pacing threshold was 0.8 V at 0.5 milliseconds, pacing impedance of 1051 ohms, R-waves 14 mitral valve. Ten-volt test was negative. The atrial lead was a model #5076, 2 cm in length, serial #[id number]. This was screwed in the right atrial appendage. P waves 2.4 mV, pacing impedance 585 ohms, pacing threshold 0.5 V at 0.5 milliseconds. Ten-volt test was negative. The LV lead was positioned in the lateral vein. This was a Medtronic model #4598, 88 cm in length, and serial #[id number]; pacing impedance 759 ohms, pacing threshold 1.2 V at 0.5 milliseconds. Ten-volt test was negative. The device was then programmed to VVDR mode at 50 to 130 ppm with an AV delay of 140 milliseconds with simultaneous RV LV pacing. This was a LIFT MANAGER pacemaker and VF pin was capped and secured. The patient tolerated the procedure well without any acute complications. RESULT: Successful LIFT MANAGER pacemaker implantation for significant AV node disease with episodes of bradycardia even a week after an inferior wall ND in the absence of any beta angie treatment post ND and normal electrolytes. PLAN: Resume beta blockers now as well as post-ND medications. MMODL / IJN: [id number] /
[2017-05-08 21:15] LABS: Glucose,Whole Blood 97 mg/dL (75-99)
[2017-05-08] MEDS: METOPROLOL SUCCINATE (ER) 25 MG TAB.ER.24H PO SCH (22:59)
[2017-05-08] MEDS: ATORVASTATIN 80 MG TAB PO SCH (22:59)
[2017-05-09] MEDS ORDERED: ACETAMINOPHEN TAB 325 MG TAB PO PRN (02:00)
[2017-05-09] MEDS: SODIUM CHLORIDE 0.9% 1,000 ML IV SCH ×3 (03:09→08:32)
[2017-05-09 04:53] VITALS: RESP 18
[2017-05-09 06:24] LABS: Glucose,Whole Blood 171 mg/dL (75-99)
[2017-05-09] MEDS: GLIMEPIRIDE 2 MG TAB PO SCH (07:00)
[2017-05-09] MEDS: HYDROcodone/APAP 5-325MG 1 EACH TAB PO PRN ×3 (07:00→16:04)
[2017-05-09] MEDS: INSULIN ASPART 100 UNIT/ML 1 ML 10 ML VIAL SQ SCH ×2 (07:00→12:47)
--- NOTE | 2017-05-09 08:27 | XR ---
EXAMINATION TYPE: XR chest 2V DATE OF EXAM: 05/09/2017 COMPARISON: 04/30/2017 INDICATION: Lead placement check TECHNIQUE: Frontal and lateral views of the chest are obtained. FINDINGS: The heart size is normal. The pulmonary vasculature is normal. The lungs are clear. No pneumothorax is evident post pacemaker placement. Cardiac leads appear charleen l. IMPRESSION: 1. No pneumothorax post pacemaker placement.
[2017-05-09] MEDS: CLOPIDOGREL 75 MG TAB PO SCH (08:32)
[2017-05-09] MEDS: LISINOPRIL 20 MG TAB PO SCH (08:32)
[2017-05-09] MEDS: ASPIRIN 325 MG TAB PO SCH (08:32)
[2017-05-09] MEDS: METOPROLOL SUCCINATE (ER) 25 MG TAB.ER.24H PO SCH (08:33)
[2017-05-09] MEDS: SPIRONOLACTONE 25 MG TAB PO SCH (08:33)
[2017-05-09 08:40] VITALS: TEMP 97
--- NOTE | 2017-05-09 10:55 | P.PN ---
Subjective Patient is doing well. He is sitting up at the end of the bed He is afebrile 97F pulse rate in the 60s and 70s, blood pressure 120/72 mmHg Breath sounds are clear no rhonchi no crackles Heart sounds S1 and S2 are soft no murmurs no gallops Basic site is healing well mildly tender no hematoma Abdomen soft nontender Extremities are warm Lab values reviewed, sodium 141, potassium 4.4, BUN 15, creatinine 0.99, hemoglobin A1c 7.0 Impression Inferior wall SC Left ventricle is systolic function 45-50% Persistent AV node disease with bradycardia and pauses despite waiting for 7 days post SC and stenting the absence of any beta angie therapy or a little imbalance Abnormal AV node function with AV node Wenckebach block at a pacing cycle length of 600 ms/100 bpm line status post biventricular pacemaker implantation Elevated right-sided pressures Device interrogation is within normal limits today. Chest x-ray report reviewed Suggest patient may be discharged home today in follow-up with Dr. Bonner as scheduled and follow-up in the device clinic in 5 days and restarted on beta blockers continue aspirin and Plavix statins and antihypertensive therapy. Diabetes management per Dr. Marshall Objective - Vital Signs Vital signs: Vital Signs Temp 97.0 F L 05/09/17 08:00 Pulse 63 05/09/17 08:00 Resp 18 05/09/17 04:15 BP 120/72 05/09/17 08:00 Pulse Ox 94 L 05/09/17 08:00 Intake & Output 05/08/17 05/09/17 05/09/17 18:59 06:59 18:59 Intake Total 550 1380 360 Balance 550 1380 360 Weight 191.4 kg 191.3 kg Intake: IV 300 10 NS 10 Intake, IV Titration 250 650 Amount Sodium Chloride 0.9% 1, 250 550 000 ml @ 50 mls/hr IV . Q20H CHARU Rx#:[id number] ceFAZolin 3 gm In Sodium 100 Chloride 0.9% 50 ml @ 50 mls/hr IVPB Q6H CHARU Rx#: [id number] Oral 720 360 Other: Voiding Method Toilet # Voids 2 - Labs CBC & Chem 7: 05/06/17 06:36 05/08/17 06:41 Labs: Abnormal Lab Results - Last 24 Hours (Table) 05/08/17 05/08/17 05/09/17 Range/Units 06:41 11:52 05:57 POC Glucose (mg/dL) 116 H 171 H (75-99) mg/dL Hemoglobin A1c 7.0 H (4.0-6.0) %
[2017-05-09 11:29] LABS: Glucose,Whole Blood 112 mg/dL (75-99)
[2017-05-09 13:01] VITALS: BP 141/79; PULSE 60
[2017-05-09 16:42] LABS: Glucose,Whole Blood 115 mg/dL (75-99)
== END 2017-05-09 16:53 | disposition home or self-care (01) | DRG 243 ==
LOC: EC 00:57 → 6ICU 03:13 → 6SEL 05-05 15:41
PROVIDERS: ADMIT Internal Medicine; ATTEND Internal Medicine
PROC: 4A023N7 Measurement of Cardiac Sampling and Pressure, Left Heart, Percutaneous Approach (ICD-10-PCS; 2017-04-30)
PROC: B2111ZZ Fluoroscopy of Multiple Coronary Arteries using Low Osmolar Contrast (ICD-10-PCS; 2017-04-30)
PROC: 027037Z Dilation of Coronary Artery, One Artery with Four or More Drug-eluting Intraluminal Devices, Percutaneous Approach (ICD-10-PCS; principal; 2017-04-30 03:04)
PROC: 02HL3JZ Insertion of Pacemaker Lead into Left Ventricle, Percutaneous Approach (ICD-10-PCS; 2017-05-08)
PROC: 02H63JZ Insertion of Pacemaker Lead into Right Atrium, Percutaneous Approach (ICD-10-PCS; 2017-05-08)
PROC: 0JH606Z Insertion of Pacemaker, Dual Chamber into Chest Subcutaneous Tissue and Fascia, Open Approach (ICD-10-PCS; 2017-05-08 14:00)
DX: I21.19 ST elevation (STEMI) myocardial infarction involving other coronary artery of inferior wall (principal); I44.2 Atrioventricular block, complete; I44.1 Atrioventricular block, second degree; I48.91 Unspecified atrial fibrillation; E66.01 Morbid (severe) obesity due to excess calories; I49.5 Sick sinus syndrome; E11.9 Type 2 diabetes mellitus without complications; E78.5 Hyperlipidemia, unspecified; G47.33 Obstructive sleep apnea (adult) (pediatric); I10 Essential (primary) hypertension; I25.10 Atherosclerotic heart disease of native coronary artery without angina pectoris; I25.5 Ischemic cardiomyopathy; R01.1 Cardiac murmur, unspecified; K21.9 Gastro-esophageal reflux disease without esophagitis; R00.1 Bradycardia, unspecified; L30.8 Other specified dermatitis; I87.2 Venous insufficiency (chronic) (peripheral); Z68.43 Body mass index [BMI] 50.0-59.9, adult; Z79.84 Long term (current) use of oral hypoglycemic drugs; Z79.899 Other long term (current) drug therapy; Z91.048 Other nonmedicinal substance allergy status; Z82.49 Family history of ischemic heart disease and other diseases of the circulatory system
CPT/HCPCS: 33208; 33225; 36415; 71045; 71046; 80048; 80051; 80053; 82150; 82310; 82550; 82553; 83036; 83690; 83735; 84100; 84484; 85025; 85027; 93005; 93306; 93458; 96374; 99285

== ENCOUNTER → 2021-09-08 | Outpatient (CLI) | payer MEDICARE ==
--- NOTE | 2021-09-08 12:37 | XR ---
EXAMINATION TYPE: XR KUB DATE OF EXAM: 09/08/2021 12:14 PM CLINICAL HISTORY: Proximal atrial fibrillation. Left flank pain and hematuria today. TECHNIQUE: 3 supine KUB images of the abdomen are obtained. COMPARISON: None. FINDINGS: Partial visualization all multi lead pacemaker/defibrillator in the heart. Gas seen in nond istended stomach. Scattered gas seen in nondistended small and large bowel loops. Occasional scattere d tiny pelvic phlebolith. Multilevel spurring in the thoracolumbar spine. No definitive nephrolithias is. IMPRESSION: As above. If symptoms of hematuria persist further investigation with CT urogram would be warranted.
== END | disposition home or self-care (01) ==
LOC: RADXRMAIN 11:57
PROVIDERS: ATTEND Internal Medicine
DX: I48.0 Paroxysmal atrial fibrillation (principal)
CPT/HCPCS: 74018

== ENCOUNTER → 2021-10-05 | Outpatient (CLI) | payer MEDICARE ==
--- NOTE | 2021-10-05 18:28 | CT ---
EXAMINATION TYPE: CT urogram wo/w con CT DLP: 44962.10 mGycm, Automated exposure control for dose reduction was used. DATE OF EXAM: 10/05/2021 5:38 PM COMPARISON: . CT abdomen pelvis most recent from CLINICAL INDICATION:Male, 70 years old with history of R31.29 MICROSCOPIC HEMATURIA, hematuria some L side flank pain x3 months TECHNIQUE: Urogram with imaging of the abdomen and pelvis. Coronal and sagittal reformats were performed. 2D and 3D reconstructions are performed to assist visualization of the urinary tract on a separate workstat ion. Contrast used:80 mL of Isovue 300 without and with IV Contrast, Oral contrast used: None. FINDINGS: GENITOURINARY: RIGHT KIDNEY AND URETER: Nonobstructing 4 mm calculus. No hydronephrosis or hydroureter. No renal mas s or other lesions. No urothelial lesions: no filling defect, dilation, stricture or wall thickening. LEFT KIDNEY AND URETER: No calculi. No hydronephrosis or hydroureter. No renal mass or other lesions. No urothelial lesions: no filling defect, dilation, stricture or wall thickening. No obvious bladder mass. URINARY BLADDER: Not optimally distended, no calculi. REPRODUCTIVE: Unremarkable. ABDOMEN LIVER: Unremarkable. GALLBLADDER AND BILE DUCTS: Unremarkable PANCREAS: Unremarkable. SPLEEN: Unremarkable. ADRENAL GLANDS: Unremarkable. STOMACH AND BOWEL: No evidence of bowel obstruction. Scattered clonic diverticula are present. PERITONEUM: No evidence of pneumoperitoneum, free fluid, or adenopathy. VASCULATURE: No aortic aneurysm. MUSCULOSKELETAL: No acute osseous abnormalities. SOFT TISSUE/ABDOMINAL WALL: Small fat-containing umbilical hernia. Right fat containing inguinal pema ia. LOWER CHEST: Cardiac conduction leads are present. Atherosclerosis changes. IMPRESSION: 1. No evidence renal/urothelial neoplasm. 2. Nonobstructing right renal calculus. No evidence of left hydronephrosis or renal calculus. 3. Colonic diverticulosis.
== END | disposition home or self-care (01) ==
LOC: RADCTMAIN 14:21
PROVIDERS: ATTEND Internal Medicine
DX: N20.0 Calculus of kidney (principal); K57.30 Diverticulosis of large intestine without perforation or abscess without bleeding
CPT/HCPCS: 82565; 84520; 74178; 36415; 74400; Q9967

== ENCOUNTER 2022-08-14 11:35 | Inpatient (IN) | payer MEDICARE ==
[~2022-08-14 11:35] MED LIST: ALPRAZolam 0.25 MG TAB PO PRN; ALPRAZolam 0.5 MG TAB PO PRN; ASPIRIN 325 MG TAB PO STA; NITROGLYCERIN SL TABS 0.4 MG TAB SUBLINGUAL PRN
[2022-08-14] MEDS ORDERED: SODIUM CHLORIDE 0.9% 1,000 ML IV ONE (11:46)
[2022-08-14] MEDS ORDERED: VERAPAMIL 2.5 MG/ML 2 ML AMP ONE (11:55)
[2022-08-14 12:01] LABS: Glucose,Whole Blood 121 mg/dL (70-110)
[2022-08-14 12:03] LABS: Basophils % (A) 0 %; Eosinophils # (A) 0.3 k/uL (0-0.7); Eosinophils % (A) 6 %; HCT 41.4 % (39.0-53.0); Lymphocytes % (A) 24 %; MCH 32.3 pg (25.0-35.0); MCHC 33.9 g/dL (31.0-37.0); MCV 95.3 fL (80.0-100.0); Mean Platelet Volume 7.2; Monocytes # (A) 0.3 k/uL (0-1.0); Monocytes % (A) 8 %; Neutrophils # (A) 2.3 k/uL (1.3-7.7); Neutrophils % (A) 57 %; Platelet Count 187 k/uL (150-450); RBC 4.34 m/uL (4.30-5.90)
[2022-08-14] MEDS: BENZOCAINE SPRAY 1 CAN MUCOUS MEM ONE ×2 (12:19→12:31)
[2022-08-14 12:21] LABS: African American GFR (CKD) 56 (>60 ml/min/1.73 sqM); Anion Gap 6 mmol/L; Blood Urea Nitrogen 22 mg/dL (9-20); Carbon Dioxide 27 mmol/L (22-30); Chloride 103 mmol/L (98-107); Glucose 123 mg/dL (74-99); Non-African American GFR(CKD) 48 (>60 ml/min/1.73 sqM); Potassium 4.3 mmol/L (3.5-5.1); Sodium 136 mmol/L (137-145)
[2022-08-14] MEDS ORDERED: fentaNYL (PF) 50 MCG/ML 2 ML AMP ONE (12:23)
[2022-08-14] MEDS ORDERED: HEPARIN SODIUM 1,000 UN/ML (10ML VL) ONE (12:23)
[2022-08-14] MEDS ORDERED: MIDAZOLAM 2 MG/2 ML VIAL IVP ONE ×2 (12:31→12:38)
[2022-08-14] MEDS: fentaNYL (PF) 50 MCG/1 ML VIAL IVP ONE ×3 (12:31→12:36)
[2022-08-14] MEDS: MIDAZOLAM 2 MG/2 ML VIAL IVP ONE ×2 (12:34→12:36)
--- NOTE | 2022-08-14 12:49 | P.PCN ---
Date of Procedure: 08/14/22 Operative Findings: TRANSESOPHAGEAL ECHOCARDIOGRAM SALES OPERATIONS ANALYST: JULIANNA GUZMAN MD, RPVI INDICATION: Aortic stenosis SEDATION: Conscious sedation COMPLICATION: None LEVEL OF SEDATION Moderate sedation length of 15 minutes PROCEDURE DESCRIPTION: After obtaining an informed consent, the patient was brought to transesophageal echocardiogram room. Pulse oximetry and heart monitors were attached to the patient. The patient throat was sprayed using lidocaine. The patient was turned into left lateral position. After that a bite guard was placed. After an appropriate conscious sedation was initiated, the transesophageal echocardiogram was advanced through a bite guard into the mid esophagus. A 2-D echocardiogram images, color Doppler images, continuous wave images, pulse-wave images, of various cardiac structure were performed. After that the transesophageal echocardiogram probe was advanced into the stomach and fixed to obtain transgastric view was. The probe was brought into the mid esophagus. Inter-atrial septum was interrogated using 2D images, color Doppler images, and then contrast study. After that transesophageal echocardiogram was withdrawn out and upon withdrawing the descending thoracic aorta all the way up to the arch was evaluated. FINDING: The left ventricular dimension and systolic function appeared to be within normal limits ejection fraction appears to be in the range of 50-55%. The right ventricle appeared to be of normal size and function. The left nature advantage appears to be intact. The interatrial septum appears to be intact as well. The aortic valve appeared to be thickened and calcified and trileaflet valve with evidence of severe aortic stenosis and moderate aortic insufficiency with a peak gradient of 78 and mean of 49 mmHg. The mitral valve appeared to be also mildly thickened with mild MR. There is mild tricuspid regurgitation was identified. No evidence of pericardial effusion identified CONCLUSION: 1. Normal LV systolic function and normal RV systolic function 2. Trileaflet aortic valve with evidence of aortic sclerosis with severe aortic stenosis. The mean gradient was 49 mmHg 3. Mildly thickened mitral valve leaflets with mild MR 4. Normal tricuspid valve and pulmonic valve 5. Intact left atrial appendage and intact interatrial septum 6. No evidence of pericardial effusion
[2022-08-14] MEDS ORDERED: LIDOCAINE 1% INJ 10MG/ML (5 ML VIAL-PF) SQ ONE (12:53)
[2022-08-14] MEDS ORDERED: IV FLUID CONTINUATION 1,000 ML IV ONE (12:56)
[2022-08-14] MEDS ORDERED: VERAPAMIL SYRINGE (5 MG/10 ML) INTRAARTER ONE (12:57)
[2022-08-14] MEDS ORDERED: HEPARIN SODIUM 1,000 UN/ML (10ML VL) IV ONE (12:59)
[2022-08-14] MEDS ORDERED: IOPAMIDOL-370 100ML BTL INJ ONE (13:09)
[2022-08-14] MEDS ORDERED: RX INFO: IV CONTRAST WAS GIVEN 1 EACH MISC MISCELLANE PRN (13:11)
[2022-08-14] MEDS ORDERED: SODIUM CHLORIDE 0.9% 1,000 ML IV SCH (13:15)
--- NOTE | 2022-08-14 13:16 | P.PCN ---
Date of Procedure: 08/14/22 Operative Findings: CARDIAC CATHETERIZATION PERFORMING PHYSICIAN: Zachary Maddox MD, RPVI PROCEDURE PERFORMED: 1. Selective right and left coronary angiogram INDICATION: Aortic stenosis COMPLICATION: None APPROACH: Right radial artery LEVEL OF SEDATION: Moderate with a sedation length of 24 minutes PROCEDURE DESCRIPTION: After obtaining an informed consent, the patient was brought to cardiac field laborer. Local anesthesia was performed using lidocaine subcutaneously. The right radial artery was cannulated using Seldinger technique, the guidewire passed easily, following that we advanced a 5-Thai sheath dilator assembly, the wire and dilator were removed and sheath was flushed. Following that, 2 mg of verapamil along with 5000 unit heparin were given. Selective right and left coronary angiogram using a 6-Thai JR4 and JL 3.5 catheters. The procedure was completed there was no complication. SELECTIVE CORONARY ANGIOGRAM: The right coronary artery: Large-caliber vessel and a dominant vessel. The RCA is a stented in the midportion and the stent is patent. Distally bifurcates into PDA and PLV branches both appear to have intermediate to severe disease only. Left main: Is angiographically normal. Bifurcates into an LCx and LAD The left circumflex: Large caliber vessel nondominant vessel with intermediate disease in the midportion The left anterior descending artery: The ostial LAD has a tight lesion appeared to be in the range of 70-80%. The mid LAD has intermediate to severe lesion. The LAD distally appeared to be angiographically normal. CONCLUSION: 1. Severe disease involving the ostial LAD and intermediate to severe disease involving the mid LAD 2. Intermediate disease involving the proximal LCx
--- NOTE | 2022-08-14 14:43 | P.GSCN ---
History of Present Illness Consult date: 08/14/22 Reason for Consult: CAD, severe aortic stenosis Requesting physician: Zachary Maddox History of present illness: This is a 71-year-old gentleman who follows outpatient with Dr. Gore for primary care and Dr. Maddox for cardiology. He has a previous medical history of coronary artery disease with myocardial infarction and previous stenting, paroxysmal atrial fibrillation as well as AV node dysfunction status post Medtronic permanent pacemaker, hypertension, hyperlipidemia, obstructive sleep apnea with home CPAP use, type 2 diabetes, daily marijuana use, venous insufficiency, obesity and occasional EtOH use. The patient denies any chest pain, however he has had shortness of breath with exertion for quite some time. He also denies any syncope, presyncope, or any other symptoms. He was recommended to undergo heart catheterization as well as transesophageal echocardiogram both of which were completed today. Heart cath revealed severe ostial LAD disease 70-80%. DAWSON revealed normal LV function with EF 50-55%, tri- leaflet calcified aortic valve with peak/mean gradient 78/49 mmHg, moderate aortic insufficiency, mild mitral regurgitation. Of note, transthoracic echocardiogram completed in the cardiology office in June 2022 revealed aortic valve area 0.69 cm, peak/mean gradient 69/40 mmHg, peak velocity 4.15 m/s. Due to these findings consultation was placed to Dr. Moyer from cardiothoracic surgery for recommendations for CABG/AVR versus PCI of the LAD plus TAVR. Review of Systems Review of systems was completed and is negative except as noted in the HPI Past Medical History Past Medical History: Atrial Fibrillation, Coronary Artery Disease (CAD), Diabetes Mellitus, Hyperlipidemia, Hypertension, Myocardial Infarction (SD), Renal Disease, Skin Disorder, Sleep Apnea/CPAP/BIPAP Additional Past Medical History / Comment(s): Severe aortic stenosis History of Any Multi-Drug Resistant Organisms: None Reported Past Surgical History: Heart Catheterization With Stent, Orthopedic Surgery, Pacemaker Additional Past Surgical History / Comment(s): rt ankle surgery with plate and 7 screws, I&D rectal cyst, pacemaker medtronic, pt states he has a total of 6 cardiac stents ([address] Maddox and 1 at [facility]) Past Anesthesia/Blood Transfusion Reactions: No Reported Reaction Date of Last Stent Placement:: 2022 Type of Cardiac Device: Permanent Pacemaker Device Placement Date:: UNK Past Psychological History: No Psychological Hx Reported Smoking Status: Former smoker Past Alcohol Use History: Occasional Past Drug Use History: Marijuana Additional Drug Use History / Comment(s): Daily marijuana use, quit smoking cigars in the 70s - Past Family History Mother Family Medical History: Cancer Additional Family Medical History / Comment(s): breast, skin cancer Father Family Medical History: Coronary Artery Disease (CAD) Medications and Allergies Home Medications Medication Instructions Recorded Confirmed Type Atorvastatin [Lipitor] 80 mg PO HS #90 tab 05/09/17 08/14/22 Rx Metoprolol Succinate (ER) [Toprol 25 mg PO DAILY #90 tab.er.24h 05/09/17 08/11/22 Rx XL] Apixaban [Eliquis] 5 mg PO BID 07/13/21 08/14/22 History Dapagliflozin Propanediol [Farxiga] 5 mg PO DAILY 07/13/21 08/14/22 History Montelukast [Singulair] 10 mg PO DAILY 07/13/21 08/14/22 History Potassium Chloride ER [K-Dur 20] 20 meq PO BID 07/13/21 08/11/22 History Bumetanide [BUMEX] 1 mg PO BID #0 07/18/21 08/14/22 Rx Aspirin [Adult Low Dose Aspirin EC] 81 mg PO DAILY 08/11/22 08/14/22 History Clopidogrel [Plavix] 75 mg PO DAILY 08/11/22 08/11/22 History Nitroglycerin Sl Tabs [Nitrostat] 0.4 mg SUBLINGUAL Q5M PRN 08/11/22 08/14/22 History Necedah-3 Fatty Acids [Necedah-3] 1,000 mg PO DAILY 08/11/22 08/11/22 History Semaglutide [Ozempic] 0.25 mg SQ Q7D 08/11/22 08/14/22 History Allergies Allergy/AdvReac Type Severity Reaction Status Date / Time cat dander Allergy Dyspnea Verified 08/14/22 11:48 dust Allergy Dyspnea Uncoded 08/14/22 11:48 Surgical - Exam Vital Signs Temp Pulse Resp BP Pulse Ox 97.8 F 73 16 142/70 97 08/14/22 12:08 08/14/22 12:08 08/14/22 12:08 08/14/22 12:08 08/14/22 12:08 CONSTITUTIONAL: Awake and alert, appears comfortable, cooperative, well- developed, well-nourished, no pain, no acute distress EYES: Pupils equal, round, reactive to light, normal ocular movement ENT: Moist mucous membranes without oral lesions present NECK: No masses, no bruits, trachea midline RESPIRATORY: Lungs sounds clear to auscultation bilaterally. Respirations even, nonlabored. Currently on room air with oxygen saturation 97%. Strong cough. No chest wall deformities. No clubbing or cyanosis present CARDIOVASCULAR: S1, barely audible S2 present, loud systolic murmur present. Regular rate and rhythm, V paced rhythm on telemetry. Palpable peripheral pulses bilaterally. No edema present. No calf pain or tenderness noted. No significant lower extremity varicosities noted GASTROINTESTINAL: Abdomen soft, nontender, nondistended without masses or organomegaly noted. There is no rebound or guarding present. Active bowel sounds present 4 quadrants. GENITOURINARY: Deferred INTEGUMENTARY: Skin is warm and dry with evidence of good perfusion. NEUROLOGIC: Cranial nerves II through XII intact, normal coordination, no obvious motor or sensory deficits, speech is normal MUSKULOSKELETAL: Able to move all extremities, strength equal bilaterally, normal posture PSYCHIATRIC: Alert and oriented to person place and time, appropriate affect, intact judgment and insight Results - Labs 08/14/22 11:54 08/14/22 11:54 Abnormal Lab Results - Last 24 Hours (Table) 08/14/22 08/14/22 Range/Units 11:54 11:56 Sodium 136 L (137-145) mmol/L BUN 22 H (9-20) mg/dL Creatinine 1.45 H (0.66-1.25) mg/dL Glucose 123 H (74-99) mg/dL POC Glucose (mg/dL) 121 H (70-110) mg/dL Diabetes panel 08/14/22 Range/Units 11:54 Sodium 136 L (137-145) mmol/L Potassium 4.3 (3.5-5.1) mmol/L Chloride 103 (98-107) mmol/L Carbon Dioxide 27 (22-30) mmol/L BUN 22 H (9-20) mg/dL Creatinine 1.45 H (0.66-1.25) mg/dL Glucose 123 H (74-99) mg/dL Calcium 9.0 (8.4-10.2) mg/dL Calcium panel 08/14/22 Range/Units 11:54 Calcium 9.0 (8.4-10.2) mg/dL Pituitary panel 08/14/22 Range/Units 11:54 Sodium 136 L (137-145) mmol/L Potassium 4.3 (3.5-5.1) mmol/L Chloride 103 (98-107) mmol/L Carbon Dioxide 27 (22-30) mmol/L BUN 22 H (9-20) mg/dL Creatinine 1.45 H (0.66-1.25) mg/dL Glucose 123 H (74-99) mg/dL Calcium 9.0 (8.4-10.2) mg/dL Adrenal panel 08/14/22 Range/Units 11:54 Sodium 136 L (137-145) mmol/L Potassium 4.3 (3.5-5.1) mmol/L Chloride 103 (98-107) mmol/L Carbon Dioxide 27 (22-30) mmol/L BUN 22 H (9-20) mg/dL Creatinine 1.45 H (0.66-1.25) mg/dL Glucose 123 H (74-99) mg/dL Calcium 9.0 (8.4-10.2) mg/dL - Imaging Additional studies: Heart catheterization and transesophageal echocardiogram films were reviewed Assessment and Plan Assessment: Coronary artery disease with myocardial infarction and previous stenting Severe aortic stenosis Paroxysmal atrial fibrillation, currently on Eliquis outpatient for anticoagulation AV node dysfunction status post Medtronic permanent pacemaker Hypertension Hyperlipidemia, treated Obstructive sleep apnea with home CPAP use Type 2 diabetes Daily marijuana use Venous insufficiency Obesity Occasional EtOH use Plan: The patient was seen and examined in the extended stay unit with at the bedside. Chart/diagnostics reviewed. The case will be discussed in detail with Dr. Moyer. The usual perioperative course of open heart surgery as well as TAVR plus PCI was discussed with the patient and his , risks and benefits reviewed, all questions were answered. Preoperative/pre-TAVR testing will be completed. Dr. Moyer will discuss with the patient as well as Dr. Maddox recommendations for surgery versus percutaneous approach. The patient stated he would prefer the percutaneous approach. He will need a dental clearance as well as TAVR CT, however CT will need to be completed at a later date due to dye load from heart catheterization. This was discussed with the patient and his and they are in agreement. Patient should continue current medication regimen. More recommendations to follow. I have personally seen and examined the patient, performed the documentation and the assessment and plan as written. Number of minutes spent on the visit: 30. MARELY RobertsonC
[2022-08-14] MEDS ORDERED: ALPRAZolam 0.25 MG TAB PO PRN (17:05)
[2022-08-14] MEDS ORDERED: ALPRAZolam 0.5 MG TAB PO PRN (17:05)
[2022-08-14] MEDS ORDERED: NITROGLYCERIN SL TABS 0.4 MG TAB SUBLINGUAL PRN (17:05)
--- NOTE | 2022-08-14 17:17 | US ---
EXAMINATION TYPE: US carotid duplex BILAT DATE OF EXAM: 08/14/2022 COMPARISON: NONE CLINICAL INDICATION: Male, 71 years old with history of preop cardiac surgery; Pre op cardiac surgery TECHNIQUE: Carotid duplex ultrasound examination. Indirect Doppler criteria was utilized. FINDINGS: EXAM MEASUREMENTS: RIGHT: Peak Systolic Velocity (PSV) cm/sec ----- Right CCA: 78.6 ----- Right ICA: 91.6 ----- Right ECA: 102 ICA/CCA ratio: 1.17 RIGHT: End Diastole cm/sec ----- Right CCA: 16.2 ----- Right ICA: 27.3 ----- Right ECA: 10.4 LEFT: Peak Systolic Velocity (PSV) cm/sec ----- Left CCA: 72.8 ----- Left ICA: 93.5 ----- Left ECA: 107 ICA/CCA ratio: 1.28 LEFT: End Diastole cm/sec ----- Left CCA: 18.2 ----- Left ICA: 27.9 ----- Left ECA: 7.8 VERTEBRALS (direction of flow): Right Vertebral: Antegrade Left Vertebral: Antegrade Rhythm: Normal LINTING MACHINE OPERATOR NOTES: Mild plaque bilateral bifurcations. No evidence of increased velocities IMPRESSION: Less than 50% stenosis of the bilateral carotid bifurcations. Criteria for Assigning % of Stenosis / Diameter reduction (Estimation based on the indirect measurements of the internal carotid artery velocities (ICA PSV). 1. Normal (no stenosis)=ICA PSV < 125 cm/s: ratio < 2.0: ICA EDV<40 cm/s. 2. Less than 50% stenosis=ICA PSV < 125 cm/s: ratio < 2.0: ICA EDV<40 cm/s. 3. 50 to 69% stenosis=ICA PSV of 125 to 230 cm/s: ration 2.0 ? 4.0: ICA EDV 40-100 cm/s. 4. Greater than 70% stenosis to near occlusion= ICA PSV > 230 cm/s: ratio > 4.0: ICA EDV > 100 cm/s. 5. Near occlusion= ICA PSV velocities may be low or undetectable: variable ratio and ICA EDV. 6. Total occlusion=unable to detect flow.
--- NOTE | 2022-08-14 17:25 | US ---
EXAMINATION TYPE: US vein mapping BILAT DATE OF EXAM: 08/14/2022 4:45 PM COMPARISON: NONE CLINICAL INDICATION: Male, 71 years old with history of preop cardiac surgery; Pre op cardiac surgery SIDE PERFORMED: Bilateral TECHNIQUE: Lower extremity saphenous vein is examined and measured utilizing real time linear array sonography. Patient History: Previous DVT: no Vascular Surgery: cardiac stents Discoloration: yes Hypertension: yes Diabetes: yes Paralysis: no Varicosities: no Edema: yes DUPLEX FINDINGS: Greater Saphenous: Color flow seen Measurements in mm: Right Greater Saphenous: Groin: 7.1 x 7.6 mm High Thigh: 5.1 x 5.8 mm Mid Thigh: 4.9 x 5.3 mm Above Knee: 5.1 x 6.4 mm Knee: 4.5 x 5.2 mm Below Knee: 4.6 x 6.5 mm Mid Calf: 2.8 x 3.6 mm At Ankle: 2.5 x 3.2 mm Left Greater Saphenous: Groin: 7.1 x 7.8 mm High Thigh: 5.7 x 6.7 mm Mid Thigh: 5.7 x 5.6 mm Above Knee: 5.0 x 6.1 mm Knee: 5.1 x 7.0 mm Below Knee: 3.0 x 4.4 mm Mid Calf: 2.8 x 4.4 mm At Ankle: 2.1 x 3.3 mm IMPRESSION: 1. Bilateral GSV measurements listed above. 2. Performing surgeon to determine viability as conduit.
[2022-08-14] MEDS: SODIUM CHLORIDE 0.9% 1,000 ML in EMPTY BAG 1 BAG IV SCH ×4 (18:38→21:54)
[2022-08-15] MEDS: SODIUM CHLORIDE 0.9% 1,000 ML in EMPTY BAG 1 BAG IV SCH ×4 (00:56→22:02)
[2022-08-15] MEDS ORDERED: ASPIRIN 325 MG TAB PO ONE (06:00)
[2022-08-15] MEDS ORDERED: ATORVASTATIN 80 MG TAB PO ONE (06:00)
[2022-08-15 06:22] LABS: Basophils % (A) 1 %; Eosinophils # (A) 0.3 k/uL (0-0.7); Eosinophils % (A) 6 %; HCT 37.3 % (39.0-53.0); HGB 12.8 gm/dL (13.0-17.5); Lymphocytes % (A) 23 %; MCH 33.6 pg (25.0-35.0); MCHC 34.3 g/dL (31.0-37.0); MCV 98.1 fL (80.0-100.0); Mean Platelet Volume 7.6; Monocytes # (A) 0.4 k/uL (0-1.0); Monocytes % (A) 8 %; Neutrophils # (A) 2.6 k/uL (1.3-7.7); Neutrophils % (A) 60 %; Platelet Count 161 k/uL (150-450); RDW 12.7 % (11.5-15.5); WBC 4.4 k/uL (3.8-10.6)
[2022-08-15 06:30] LABS: INR 1.1 (<1.2); Partial Thromboplastin Time 24.2 sec (22.0-30.0); Prothrombin Time 11.8 sec (9.0-12.0)
[2022-08-15 06:31] LABS: ALT 20 U/L (4-49); AST 31 U/L (17-59); African American GFR (CKD) 63 (>60 ml/min/1.73 sqM); Alkaline Phosphatase 63 U/L (38-126); Anion Gap 4 mmol/L; Blood Urea Nitrogen 20 mg/dL (9-20); Calcium 8.4 mg/dL (8.4-10.2); Carbon Dioxide 27 mmol/L (22-30); Chloride 105 mmol/L (98-107); Glucose 101 mg/dL (74-99); Magnesium 1.9 mg/dL (1.6-2.3); Non-African American GFR(CKD) 55 (>60 ml/min/1.73 sqM); Sodium 136 mmol/L (137-145); Total Protein 5.8 g/dL (6.3-8.2)
[2022-08-15] MEDS ORDERED: HEPARIN SODIUM,PORCINE 2,500 UNIT in SODIUM CHLORIDE 0.9% 250 ML IRRIGATION PRN (07:00)
[2022-08-15] MEDS ORDERED: HEPARIN SODIUM,PORCINE 10,000 UNIT in SODIUM CHLORIDE 0.9% 1,000 ML IRRIGATION PRN (07:00)
--- NOTE | 2022-08-15 07:53 | P.PN ---
Subjective Progress Note Date: 08/15/22 Principal diagnosis: Coronary artery disease with myocardial infarction and previous stenting, severe aortic stenosis. History of paroxysmal atrial fibrillation, currently on [facility] outpatient for anticoagulation, AV node dysfunction status post Medtronic permanent pacemaker, hypertension, hyperlipidemia, obstructive sleep apnea with home CPAP use, type 2 diabetes, daily marijuana use, venous insufficiency, obesity, occasional EtOH use The patient was seen and examined this morning sitting up at the bedside in no acute distress. Denies pain or shortness of breath. He was seen yesterday by Dr. Moyer who reviewed his heart catheterization and echocardiogram films. Due to multiple comorbid conditions and patient preference recommendations were made for stenting plus TAVR. This was discussed with the patient and his 2 sons and they are agreeable. This was discussed between Dr. Moyer and Dr. Maddox and all are in agreement. Patient is scheduled for stent today by Dr. Maddox. We will follow him outpatient to schedule TAVR CT after allowing dye to be flushed from the kidneys, he will then follow up in the TAVR clinic. Frailty testing was completed. No other new concerns. Objective - Vital Signs Vital signs: Vital Signs Temp 98.3 F 08/15/22 00:52 Pulse 57 L 08/15/22 00:52 Resp 16 08/15/22 00:52 BP 124/64 08/15/22 00:52 Pulse Ox 96 08/15/22 00:52 FiO2 Intake & Output 08/14/22 08/15/22 08/15/22 18:59 06:59 18:59 Intake Total 1190 Balance 1190 Weight 133.6 kg Intake: IV 950 Oral 240 Other: Voiding Method Toilet # Voids 2 - Exam CONSTITUTIONAL: Appears comfortable, cooperative, no acute distress RESPIRATORY: Lungs sounds diminished bilaterally. Respirations even, nonlabored. Currently on room air with oxygen saturation 96% CARDIOVASCULAR: S1, S2 present. Regular rate and rhythm, paced rhythm on telemetry. Sternum stable. Palpable peripheral pulses bilaterally. No edema present. GASTROINTESTINAL: Abdomen soft, nontender, nondistended. Active bowel sounds present 4 quadrants. Currently NPO GENITOURINARY: Continues to void INTEGUMENTARY: Skin is warm and dry, evidence of chronic venous insufficiency present to bilateral lower extremities NEUROLOGIC: Cranial nerves II through XII intact MUSKULOSKELETAL: Able to move all extremities, strength equal bilaterally, gait normal PSYCHIATRIC: Alert and oriented to person place and time, appropriate affect, intact judgment and insight - Allied health notes Allied health notes reviewed: nursing - Labs CBC & Chem 7: 08/15/22 05:13 08/15/22 05:13 Labs: Abnormal Lab Results - Last 24 Hours (Table) 08/14/22 08/14/22 08/15/22 Range/Units 11:54 11:56 05:13 RBC (4.30-5.90) m/uL Hgb (13.0-17.5) gm/dL Hct (39.0-53.0) % Sodium 136 L 136 L (137-145) mmol/L BUN 22 H (9-20) mg/dL Creatinine 1.45 H 1.32 H (0.66-1.25) mg/dL Glucose 123 H 101 H (74-99) mg/dL POC Glucose (mg/dL) 121 H (70-110) mg/dL Total Protein 5.8 L (6.3-8.2) g/dL Albumin 3.0 L (3.5-5.0) g/dL 08/15/22 Range/Units 05:13 RBC 3.80 L (4.30-5.90) m/uL Hgb 12.8 L (13.0-17.5) gm/dL Hct 37.3 L (39.0-53.0) % Sodium (137-145) mmol/L BUN (9-20) mg/dL Creatinine (0.66-1.25) mg/dL Glucose (74-99) mg/dL POC Glucose (mg/dL) (70-110) mg/dL Total Protein (6.3-8.2) g/dL Albumin (3.5-5.0) g/dL Assessment and Plan Assessment: Coronary artery disease with myocardial infarction and previous stenting Severe aortic stenosis Paroxysmal atrial fibrillation, currently on Eliquis outpatient for anticoagulation AV node dysfunction status post Medtronic permanent pacemaker Hypertension Hyperlipidemia, treated Obstructive sleep apnea with home CPAP use Type 2 diabetes Daily marijuana use Venous insufficiency Obesity Occasional EtOH use Plan: Continue to maximize medical therapy with aspirin, statin, Plavix, beta angie Patient to have PCI to the LAD by Dr. Maddox today We will schedule TAVR CT outpatient Patient will need dental clearance Patient will follow in the valve clinic for TAVR discussion and scheduling
[2022-08-15] MEDS: DAPAGLIFLOZIN PROPANEDIOL 5 MG TABLET PO SCH (08:12)
[2022-08-15] MEDS: CLOPIDOGREL 75 MG TAB PO SCH (08:12)
[2022-08-15] MEDS: ASPIRIN 81 MG PO SCH (08:12)
[2022-08-15] MEDS: METOPROLOL SUCCINATE (ER) 25 MG TAB.ER.24H PO SCH (08:13)
[2022-08-15] MEDS ORDERED: DEXTROSE 50% SYRINGE 50 ML IVP PRN ×2 (10:15)
[2022-08-15 12:11] LABS: Glucose,Whole Blood 116 mg/dL (70-110)
[2022-08-15] MEDS ORDERED: VERAPAMIL 2.5 MG/ML 2 ML AMP ONE (12:57)
[2022-08-15] MEDS ORDERED: LIDOCAINE 1% INJ 10MG/ML (5 ML VIAL-PF) SQ ONE (13:07)
[2022-08-15] MEDS ORDERED: IV FLUID CONTINUATION 1,000 ML IV ONE (13:12)
[2022-08-15] MEDS ORDERED: VERAPAMIL SYRINGE (5 MG/10 ML) INTRAARTER ONE (13:15)
[2022-08-15] MEDS ORDERED: MIDAZOLAM 2 MG/2 ML VIAL IV ONE (13:15)
[2022-08-15] MEDS ORDERED: HEPARIN SODIUM 1,000 UN/ML (10ML VL) IV ONE (13:15)
[2022-08-15] MEDS: INSULIN ASPART (NovoLOG) 100 UNIT/ML VIAL SQ SCH ×3 (13:40→20:52)
[2022-08-15] MEDS ORDERED: CLOPIDOGREL 75 MG TAB ONE (13:44)
[2022-08-15] MEDS ORDERED: IOPAMIDOL-370 100ML BTL INJ ONE (13:45)
[2022-08-15] MEDS ORDERED: CLOPIDOGREL 75 MG TAB PO ONE (13:45)
[2022-08-15] MEDS ORDERED: RX INFO: IV CONTRAST WAS GIVEN 1 EACH MISC MISCELLANE PRN (13:48)
[2022-08-15] MEDS ORDERED: ZOLPIDEM 5 MG TAB PO PRN (13:48)
[2022-08-15] MEDS ORDERED: MAG HYDROX/AL HYDROX/SIMETH 30 ML CUP PO PRN (13:48)
[2022-08-15] MEDS ORDERED: ATROPINE SULFATE 0.1 MG/ML 10ML SYRINGE IV PRN (13:48)
[2022-08-15 15:56] VITALS: BMI 41.1
[2022-08-15 17:25] LABS: Glucose,Whole Blood 108 mg/dL (70-110)
--- NOTE | 2022-08-15 19:59 | P.PCN ---
Date of Procedure: 08/15/22 Operative Findings: Percutaneous coronary intervention Performing physician Zachary Maddox MD Procedure performed 1. Successful stenting of the ostial left anterior descending artery using 4.5 x 12 mm Xience BRAULIO with excellent angiographic results and adjunctive use of lithotripsy balloon and endovascular imaging 2. Ultrasound-guided access of the right radial artery Indication This is a 71-year-old gentleman who was diagnosed recently with severe symptomatic aortic stenosis. He underwent transesophageal echocardiogram yesterday and that showed evidence of severe aortic stenosis. He also underwent a heart catheterization yesterday and that showed severe disease involving the ostial LAD. He was seen by Dr. Moyer and he was deemed to be high risk for surgical aortic valve replacement and for that reason he will be scheduled to undergo transcatheter aortic valve replacement. He was brought today to undergo PCI of the LAD before the transcatheter aortic valve replacement. Approach Right radial artery Complication None Level of sedation Moderate sedation legs of 28 minutes Procedure description After obtaining an informed consent the patient was brought to the cardiac labor delivery specialist. The right radial artery was cannulated using micropuncture technique under ultrasound guidance the micropuncture wire passed easily then I placed a 6 Greenlandic sheath. After that they give the patient 2 mg of verapamil intra- arterial and 6000 use of heparin intravenous. I did engage the left main using a JL 3.5 guiding catheter. After that I did wire the LAD using a run through wire and I wired the circumflex using whisper wire. Intravascular ultrasound was advanced over the wire to the left anterior descending artery where I did pull back and manually that revealed heavily calcified LAD with arch of calcium of about 270. For that reason I decided to do little to see balloon. I advanced 4.0 x 12 mm lithotripsy balloon to the ostial LAD where I did balloon angioplasty successfully. After that I deployed a 4.5 x 12 mm stent where the stent was positioned under fluoroscopy guidance and deployed under 14 jeffrey for 20 seconds. The following angiogram showed good angiographic results and the following intravascular ultrasound also showed that the stent was well expanded to the wall of the LAD. The procedure was completed with no complication. Postprocedure management Continue dual antiplatelet therapy using aspirin and Plavix for at least 12 months Proceed with transcatheter aortic valve replacement
[2022-08-15 20:43] LABS: Glucose,Whole Blood 109 mg/dL (70-110)
[2022-08-15] MEDS ORDERED: ATORVASTATIN 80 MG TAB PO SCH (21:00)
[2022-08-15 21:41] LABS: Hepatitis A Antibody IgM Nonreactive; Hepatitis B Core IgM Nonreactive; Hepatitis B Surface Antigen Nonreactive; Hepatitis C IgG Antibody Nonreactive
[2022-08-16 05:20] LABS: Chol/HDL Ratio 1.92 Ratio; LDL Cholesterol,Calculated 30.4 mg/dL (0.0-131.0); VLDL Calculation 13.34 mg/dL (5.00-40.00)
[2022-08-16 05:24] VITALS: RESP 18
[2022-08-16] MEDS: SODIUM CHLORIDE 0.9% 1,000 ML in EMPTY BAG 1 BAG IV SCH (06:05)
[2022-08-16 06:07] LABS: Glucose,Whole Blood 104 mg/dL (70-110)
[2022-08-16] MEDS: INSULIN ASPART (NovoLOG) 100 UNIT/ML VIAL SQ SCH ×2 (06:12→15:53)
[2022-08-16] MEDS: DAPAGLIFLOZIN PROPANEDIOL 5 MG TABLET PO SCH (08:24)
[2022-08-16] MEDS: CLOPIDOGREL 75 MG TAB PO SCH (08:24)
[2022-08-16] MEDS: ASPIRIN 81 MG PO SCH (08:24)
[2022-08-16] MEDS: METOPROLOL SUCCINATE (ER) 25 MG TAB.ER.24H PO SCH (08:42)
[2022-08-16] MEDS ORDERED: APIXABAN 5 MG TAB PO SCH (09:00)
[2022-08-16 09:16] VITALS: BP 136/75; PULSE 52; TEMP 98.2
[2022-08-16 10:21] LABS: African American GFR (CKD) 73 (>60 ml/min/1.73 sqM); Anion Gap 8 mmol/L; Blood Urea Nitrogen 13 mg/dL (9-20); Calcium 8.3 mg/dL (8.4-10.2); Carbon Dioxide 21 mmol/L (22-30); Chloride 109 mmol/L (98-107); Glucose 102 mg/dL (74-99); Non-African American GFR(CKD) 63 (>60 ml/min/1.73 sqM); Sodium 138 mmol/L (137-145)
[2022-08-16 10:25] LABS: Basophils % (A) 1 %; Eosinophils # (A) 0.2 k/uL (0-0.7); Eosinophils % (A) 6 %; HCT 36.8 % (39.0-53.0); HGB 12.5 gm/dL (13.0-17.5); Lymphocytes # (A) 0.8 k/uL (1.0-4.8); Lymphocytes % (A) 20 %; MCH 33.5 pg (25.0-35.0); MCHC 33.8 g/dL (31.0-37.0); MCV 98.9 fL (80.0-100.0); Mean Platelet Volume 7.9; Monocytes # (A) 0.4 k/uL (0-1.0); Monocytes % (A) 10 %; Neutrophils # (A) 2.4 k/uL (1.3-7.7); Neutrophils % (A) 61 %; Platelet Count 158 k/uL (150-450); RBC 3.72 m/uL (4.30-5.90); RDW 12.6 % (11.5-15.5); WBC 3.8 k/uL (3.8-10.6)
--- NOTE | 2022-08-16 11:42 | P.DS ---
Providers Date of admission: 08/14/22 13:08 Attending physician: Zachary Maddox Consults: 08/14/22 13:16 Consult Physician Routine Consulting Provider: Morgan Moyer Consult Reason/Comments: aortic stenosis, CAD Do you want consulting provider notified?: Already Contacted 08/15/22 13:48 Consult Physician Routine Consulting Provider: [facility] Consult Reason/Comments: Post Interventional patient Do you want consulting provider notified?: Already Contacted Primary care physician: Naina Gore [facility] Course: The patient is a pleasant 71-year-old gentleman who underwent stenting of the LAD yesterday. He was seen this morning. He is asymptomatic and hemodynamically stable. The patient is going to be discharged home on dual antiplatelet therapy and he'll follow-up with the patient next week in the office and also he is on anticoagulation for atrial fibrillation. The right radial site is soft and nontender was mild bruises. Plan - Discharge Summary Discharge Rx Participant: No New Discharge Prescriptions: Continue Atorvastatin [Lipitor] 80 mg PO HS #90 tab Metoprolol Succinate (ER) [Toprol XL] 25 mg PO DAILY #90 tab.er.24h Potassium Chloride ER [K-Dur 20] 20 meq PO BID Montelukast [Singulair] 10 mg PO DAILY Dapagliflozin Propanediol [Farxiga] 5 mg PO DAILY Apixaban [Eliquis] 5 mg PO BID Bumetanide [BUMEX] 1 mg PO BID #0 Clopidogrel [Plavix] 75 mg PO DAILY [place]-3 Fatty Acids [[place]-3] 1,000 mg PO DAILY Semaglutide [Ozempic] 0.25 mg SQ Q7D Nitroglycerin Sl Tabs [Nitrostat] 0.4 mg SUBLINGUAL Q5M PRN PRN Reason: Chest Pain Aspirin [Adult Low Dose Aspirin EC] 81 mg PO DAILY Discharge Medication List Atorvastatin [Lipitor] 80 mg PO HS #90 tab 05/09/17 [Rx] Metoprolol Succinate (ER) [Toprol XL] 25 mg PO DAILY #90 tab.er.24h 05/09/17 [Rx] Apixaban [Eliquis] 5 mg PO BID 07/13/21 [History] Dapagliflozin Propanediol [Farxiga] 5 mg PO DAILY 07/13/21 [History] Montelukast [Singulair] 10 mg PO DAILY 07/13/21 [History] Potassium Chloride ER [K-Dur 20] 20 meq PO BID 07/13/21 [History] Bumetanide [BUMEX] 1 mg PO BID #0 07/18/21 [Rx] Aspirin [Adult Low Dose Aspirin EC] 81 mg PO DAILY 08/11/22 [History] Clopidogrel [Plavix] 75 mg PO DAILY 08/11/22 [History] Nitroglycerin Sl Tabs [Nitrostat] 0.4 mg SUBLINGUAL Q5M PRN 08/11/22 [History] [place]-3 Fatty Acids [[place]-3] 1,000 mg PO DAILY 08/11/22 [History] Semaglutide [Ozempic] 0.25 mg SQ Q7D 08/11/22 [History] Follow up Appointment(s)/Referral(s): Zachary Maddox MD [STAFF PHYSICIAN] - 1 Week (APPOINTMENT MADE ON July @ 4:00PM TO SEE DR. MADDOX YOU HAVE A DEVICE CHECK SCHEDULED ON THIS July AT 4:00PM ) Clinic,Structural Heart [NON-STAFF] - 08/28/22 3:30 pm (TAVR CT scheduled 08/21/22, please report to Extended Stay Unit for hydration at 6:30. Your valve clinic appointment with the surgeon/machine operator hop picker is scheduled 08/28/22 @ 3:30. Please work on obtaining dental clearence as discussed) Patient Instructions/Handouts: Moderate Sedation (DC), After Radial Heart Catheterization (GEN), Transesophageal Echocardiogram (DC) Activity/Diet/Wound Care/Special Instructions: *NO LIFTING, PUSHING, OR PULLING ANYTHING OVER 5 POUNDS FOR 5 DAYS *NO DRIVING FOR 3 DAYS *YOU CAN REMOVE YOUR DRESSING AND SHOWER TOMORROW BUT DO NOT SUBMERSE YOUR PUNCTURE SITE IN WATER FOR A FEW DAYS TO PREVENT INFECTION - SO NO TUB BATHS, POOLS, HOT TUBS, DISHES...ETC *ANY SIGNS OF BLEEDING (HARDNESS, SWELLING, OR EXCESSIVE BRUISING) HOLD DIRECT PRESSURE ON YOUR PUNCTURE SITE AND COME TO THE NEAREST EMERGENCY ROOM TO GET YOUR PUNCTURE SITE LOOKED AT - DO NOT DRIVE YOURSELF! EITHER CALL EMS OR HAVE S OMEONE DRIVE YOU!
== END 2022-08-16 13:52 | disposition home or self-care (01) | DRG 247 ==
LOC: CATHCVL 11:35 → 6NMEDSUR 13:08 → OBSVTOIN 08-16 10:35
PROVIDERS: ADMIT Internal Medicine Interventional Cardiology; ATTEND Internal Medicine Interventional Cardiology
PROC: B24BZZ4 Ultrasonography of Heart with Aorta, Transesophageal (ICD-10-PCS; principal; 2022-08-14 12:00)
PROC: B2111ZZ Fluoroscopy of Multiple Coronary Arteries using Low Osmolar Contrast (ICD-10-PCS; principal; 2022-08-14 12:00)
PROC: 4A023N7 Measurement of Cardiac Sampling and Pressure, Left Heart, Percutaneous Approach (ICD-10-PCS; principal; 2022-08-14 12:00)
PROC: 027034Z Dilation of Coronary Artery, One Artery with Drug-eluting Intraluminal Device, Percutaneous Approach (ICD-10-PCS; 2022-08-15 11:45)
PROC: 02F03ZZ Fragmentation in Coronary Artery, One Artery, Percutaneous Approach (ICD-10-PCS; 2022-08-15 11:45)
PROC: B240ZZ3 Ultrasonography of Single Coronary Artery, Intravascular (ICD-10-PCS; 2022-08-15 11:45)
DX: I35.2 Nonrheumatic aortic (valve) stenosis with insufficiency (principal); I25.10 Atherosclerotic heart disease of native coronary artery without angina pectoris; I87.2 Venous insufficiency (chronic) (peripheral); I48.0 Paroxysmal atrial fibrillation; E11.9 Type 2 diabetes mellitus without complications; E66.9 Obesity, unspecified; E78.5 Hyperlipidemia, unspecified; G47.33 Obstructive sleep apnea (adult) (pediatric); I10 Essential (primary) hypertension; F12.90 Cannabis use, unspecified, uncomplicated; Z87.891 Personal history of nicotine dependence; Z79.899 Other long term (current) drug therapy; Z79.84 Long term (current) use of oral hypoglycemic drugs; Z79.82 Long term (current) use of aspirin; Z79.02 Long term (current) use of antithrombotics/antiplatelets; Z79.01 Long term (current) use of anticoagulants; Z95.0 Presence of cardiac pacemaker; Z95.5 Presence of coronary angioplasty implant and graft; I25.2 Old myocardial infarction
CPT/HCPCS: 0715T; 80048; 80053; 80061; 80074; 83036; 83735; 83880; 84443; 85025; 85610; 85730; 87070; 92928; 92978; 93312; 93320; 93325; 93454; 93880; 93970; 94150; 94760

== ENCOUNTER 2022-08-21 06:02 | Outpatient (CLI) | payer MEDICARE ==
[2022-08-21 06:57] LABS: Glucose,Whole Blood 102 mg/dL (70-110)
[2022-08-21 07:22] LABS: African American GFR (CKD) 50 (>60 ml/min/1.73 sqM); Blood Urea Nitrogen 23 mg/dL (9-20); Non-African American GFR(CKD) 44 (>60 ml/min/1.73 sqM)
--- NOTE | 2022-08-21 16:46 | CT ---
EXAMINATION TYPE: CT TAVR Planning DATE OF EXAM: 08/21/2022 COMPARISON: None HISTORY: Non-rheumatic aortic valve insuffiency. CT DLP: 3263.70 mGycm, Automated exposure control for dose reduction was used. CONTRAST: Performed injected with 125 mL of Isovue 370. TECHNIQUE: Axial images were obtained at 0.5 mm thick sections. Reconstructed images are obtained. G ated imaging was performed. FINDINGS: Images were obtained for TAVR surgical planning. Scattered small lymph nodes within the mediastinum. Descending thoracic aorta and main pulmonary ashley ry is 3.9 cm. Main pulmonary bifurcation is 3.6 cm. Coronary artery calcifications are present. Incidental note is made of bilateral maxillary sinus mucosal thickening and air-fluid levels. Conside r acute sinusitis. IMPRESSIONS: 1. CT for TAVR planning. 2. Incidental note made of acute bilateral maxillary sinusitis
== END 2022-08-21 14:55 | disposition home or self-care (01) ==
LOC: RADCTMAIN 06:02
PROVIDERS: ATTEND Thoracic Surgery (Cardiothoracic Vascular Surgery)
DX: I35.1 Nonrheumatic aortic (valve) insufficiency (principal); J01.00 Acute maxillary sinusitis, unspecified
CPT/HCPCS: 82565; 84520; 71275; 74174; Q9967

== ENCOUNTER → 2022-09-12 | Outpatient (CLI) | payer MEDICARE ==
[2022-09-12 10:27] LABS: INR 1.1 (<1.2); Partial Thromboplastin Time 25.1 sec (22.0-30.0); Prothrombin Time 11.8 sec (9.0-12.0)
[2022-09-12 15:33] LABS: ALT 31 U/L (10-49); AST 40 U/L (14-35); Albumin 3.8 d/dL (3.8-4.9); Albumin/Globulin Ratio 1.46 Ratio (1.60-3.17); Alkaline Phosphatase 77 U/L (41-126); Blood Urea Nitrogen 22.1 mg/dL (9.0-27.0); Calcium 9.1 mg/dL (8.7-10.3); Carbon Dioxide 26.9 mmol/L (21.6-31.8); Chloride 103 mmol/L (96-109); Globulin 2.6 d/dL (1.6-3.3); Glucose 102 mg/dL (70-110); Sodium 139 mmol/L (135-145); Total Bilirubin 1.1 mg/dL (0.3-1.2); Total Protein 6.4 d/dL (6.2-8.2)
[2022-09-12 16:14] LABS: Basophils # (A) 0.02 X 10*3/uL (0.00-0.10); Basophils % (A) 0.6 %; Eosinophils # (A) 0.14 X 10*3/uL (0.04-0.35); Eosinophils % (A) 4.1 %; HCT 37.5 % (39.6-50.0); HGB 12.5 d/dL (12.0-15.0); Immature Grans, Automated 0 %; Lymphocytes # (A) 0.71 X 10*3/uL (0.90-5.00); MCH 32.3 pg (27.0-32.0); MCHC 33.3 d/dL (32.0-37.0); MCV 96.9 FL (80.0-97.0); Mean Platelet Volume 9.8 FL (9.5-12.2); Monocytes # (A) 0.51 X 10*3/uL (0.20-1.00); Monocytes % (A) 15.1 %; NRBC Per 100 WBC 0 X 10*3/uL (0.00-0.01); Neutrophils % (A) 59.2 %; Platelet Count 128 X 10*3/uL (140-440); RBC 3.87 X 10*6/uL (4.40-5.60); RDW 13.3 % (11.5-14.5); WBC 3.38 X 10*3/uL (4.50-10.00)
== END | disposition home or self-care (01) ==
LOC: LABPAT 09:17
PROVIDERS: ATTEND Thoracic Surgery (Cardiothoracic Vascular Surgery)
DX: Z01.812 Encounter for preprocedural laboratory examination (principal); I35.0 Nonrheumatic aortic (valve) stenosis; Z79.899 Other long term (current) drug therapy
CPT/HCPCS: 36415; 80053; 85025; 85610; 85730

== ENCOUNTER 2022-09-20 06:35 | Inpatient (IN) | payer MEDICARE ==
[2022-09-20] MEDS ORDERED: ASPIRIN 81 MG ONE (06:56)
[2022-09-20 07:02] LABS: Glucose,Whole Blood 108 mg/dL (70-110)
[2022-09-20] MEDS ORDERED: SODIUM CHLORIDE 0.9% 1,000 ML IV ONE ×2 (07:08→11:32)
[2022-09-20] MEDS ORDERED: PROTAMINE SULFATE 250 MG in EMPTY BAG 1 BAG IV PRN (08:00)
[2022-09-20] MEDS ORDERED: TRANEXAMIC ACID 2,000 MG in SODIUM CHLORIDE 0.9% 80 ML IV PRN (08:00)
[2022-09-20] MEDS ORDERED: ATORVASTATIN 10 MG TAB PO ONE (08:00)
[2022-09-20] MEDS ORDERED: ASPIRIN 325 MG TAB PO ONE (08:00)
[2022-09-20] MEDS ORDERED: ceFAZolin 3 GM in SODIUM CHLORIDE 0.9% 100 ML IVPB ONE (08:00)
[2022-09-20] MEDS ORDERED: NITROGLYCERIN-D5W PMX 25 MG/250 ML BTL IV PRN (08:00)
[2022-09-20] MEDS ORDERED: LACTATED RINGERS 1,000 ML IV SCH (08:00)
[2022-09-20] MEDS ORDERED: CLOPIDOGREL 75 MG TAB PO ONE (08:00)
[2022-09-20] MEDS ORDERED: CLEVIDIPINE BUTYRATE 25 MG in EMPTY BAG 1 BAG IV PRN (08:00)
[2022-09-20] MEDS ORDERED: ELECTROLYTE-A SOLUTION 1,000 ML with POTASSIUM CHLORIDE 100 MEQ, MAGNESIUM SULFATE 16 M... IV PRN ×5 (08:00)
[2022-09-20] MEDS ORDERED: METOPROLOL TARTRATE 25 MG TAB PO ONE (08:00)
[2022-09-20] MEDS ORDERED: INSULIN REGULAR 100 UNIT in SODIUM CHLORIDE 0.9% 100 ML IV PRN (08:00)
[2022-09-20] MEDS ORDERED: SODIUM CHLORIDE 0.9% 500 ML 500 ML INTRAARTER PRN (08:00)
[2022-09-20] MEDS ORDERED: MIDAZOLAM 2 MG/2 ML VIAL IVP ONE (09:22)
[2022-09-20] MEDS ORDERED: HEPARIN SODIUM,PORCINE 10,000 UNIT/ML 1 ML VIAL ONE (09:58)
[2022-09-20] MEDS ORDERED: NEOSTIGMINE 1 MG/ML 10 ML VIAL ONE (09:58)
[2022-09-20] MEDS ORDERED: hydrALAZINE HCL 20 MG/ML 1 ML VIAL ONE (09:58)
[2022-09-20] MEDS ORDERED: ROCURONIUM 10 MG/ML (5 ML VIAL) IV ONE (09:58)
[2022-09-20] MEDS ORDERED: HYDROmorphone (PF) 1 MG/ML ONE (09:58)
[2022-09-20] MEDS ORDERED: LIDOCAINE 4% LTA KIT (4 ML) TOPICAL ONE (09:58)
[2022-09-20] MEDS ORDERED: SUCCINYLCHOLINE CHLORIDE 200 MG/10 ML VIAL IV ONE (09:58)
[2022-09-20] MEDS ORDERED: WATER FOR INJECTION, STERILE 10 ML VIAL IV ONE (09:58)
[2022-09-20] MEDS ORDERED: PROPOFOL 10 MG/ML 20 ML VIAL IV ONE (09:58)
[2022-09-20] MEDS ORDERED: LIDOCAINE 2% INJ 20 MG/ML (2 ML VIAL) ONE (09:58)
[2022-09-20] MEDS ORDERED: ePHEDrine 50 MG/ML 1 ML VIAL ONE (09:58)
[2022-09-20] MEDS ORDERED: PROTAMINE SULFATE 10 MG/ML 5 ML VIAL IV ONE (09:58)
[2022-09-20] MEDS ORDERED: fentaNYL (PF) 50 MCG/ML 50 ML VIAL ONE (09:58)
[2022-09-20] MEDS ORDERED: GLYCOPYRROLATE 0.2 MG/ML 2 ML VIAL ONE (09:58)
[2022-09-20] MEDS ORDERED: IOPAMIDOL-370 100ML BTL INJ ONE (11:10)
[2022-09-20] MEDS ORDERED: ONDANSETRON 4 MG/2 ML VIAL IVP PRN (11:55)
[2022-09-20] MEDS ORDERED: NITROGLYCERIN SL TABS 0.4 MG TAB SUBLINGUAL PRN (11:55)
[2022-09-20] MEDS ORDERED: IPRATROPIUM-ALBUTEROL 3 ML NEB INHALATION PRN (11:55)
[2022-09-20] MEDS ORDERED: ACETAMINOPHEN TAB 325 MG TAB PO PRN (11:55)
[2022-09-20] MEDS ORDERED: DEXTROSE 50% SYRINGE 50 ML IVP PRN ×2 (11:55)
[2022-09-20 12:08] LABS: Glucose,Whole Blood 99 mg/dL (70-110)
--- NOTE | 2022-09-20 12:11 | P.OP ---
Date of Procedure: 09/20/22 Preoperative Diagnosis: Tricuspid calcific aortic valve stenosis Postoperative Diagnosis: Same Procedure(s) Performed: Transcatheter aortic valve replacement via right transfemoral percutaneous approach with 29 mm Fitzgerald's Yvonne 2 Implants: 29 mm Fitzgerald Yvonne 2 Surgeon: Morgan Moyer (Cardiovascular surgeon) Visual Display Manager #1: Brandt Santizo (adjunct spanish instructor) Visual Display Manager #2: Zachary Maddox (Second major sales associate) Estimated Blood Loss (ml): 25 IV fluids (ml): 2,000 Pathology: none sent Condition: stable Disposition: ICU Indications for Procedure: 71-year-old morbidly obese male with known tricuspid aortic stenosis which is becoming increasingly symptomatic in terms of dyspnea on exertion. Was shown to be severely disease by echo. Patient did require a proximal LAD stent. This is proceeded uneventfully. He was seen in the high risk valve clinic and felt to be most appropriate for transcatheter aortic valve replacement given his obesity and comorbidities. Description of Procedure: Patient was brought to the catheterization laboratory and placed supine on the table. Gen. anesthesia was induced. DAWSON probe was placed. Bilateral groins and chest were sterilely prepped and draped. Bilateral femoral access was obtained under ultrasound guidance. A 7-Gibraltarian sheath was placed in the right femoral artery. A long 7-Gibraltarian sheath was placed in the left common femoral artery and advanced up descending thoracic aorta. A long 8-Gibraltarian sheath was placed in the left common femoral vein. Through the long sheath on the left femoral artery a pigtail catheter was advanced into the root of the aorta and positioned in the right coronary cusp area transvenous pacer was placed through the femoral venous sheath and advanced into the right atrial apex. Good thresholds and sensing was obtained. Right femoral artery sheath was removed and 2 Perclose devices were placed and an 8-Gibraltarian sheath was then placed. This was exchanged for a 16-Gibraltarian Fitzgerald sheath over a stiff wire. The patient was systemically heparinized. The valve was then crossed from the right femoral artery sheath and pigtail catheter positioned in the apex of the ventricle. Transvalvular gradients were measured. A Lunderquist wire was placed in the apex of the ventricle. 29 Fitzgerald Yvonne 2 valve had been loaded on the back table and was brought up onto the field. Was advanced through the sheath into the descending thoracic aorta. The balloon was pulled back into the valve.'s was then curved around the aortic arch and across the aortic valve. The pusher was pulled back. The valve was appropriately positioned. The valve was deployed under rapid ventricular pacing with deployment levels of 15 and 85. Proceeded uneventfully. Valve the alignment system with and wire were pulled back. Valve was examined with the DAWSON and noted to be well expanded in good position with trivial paravalvular leak. Valve deployment system was now removed from the sheath. Heparin was reversed with protamine. A femoral sheath was removed and the 2 Perclose devices were deployed. Occlusion angiography was performed and the sheath was removed from both the femoral artery and vein on the left and stasis obtained with direct pressure. The patient was transferred to
[2022-09-20] MEDS: LACTATED RINGERS 1,000 ML IV SCH ×2 (12:40→23:54)
[2022-09-20] MEDS: INSULIN ASPART (NovoLOG) 100 UNIT/ML VIAL SQ SCH ×3 (12:40→20:08)
[2022-09-20 12:55] LABS: Basophils % (A) 1 %; Eosinophils # (A) 0.2 k/uL (0-0.7); Eosinophils % (A) 5 %; HCT 38.2 % (39.0-53.0); HGB 13.3 gm/dL (13.0-17.5); Lymphocytes # (A) 1.3 k/uL (1.0-4.8); Lymphocytes % (A) 27 %; MCH 33.6 pg (25.0-35.0); MCHC 34.7 g/dL (31.0-37.0); MCV 96.8 fL (80.0-100.0); Mean Platelet Volume 7.6; Monocytes # (A) 0.4 k/uL (0-1.0); Monocytes % (A) 8 %; Neutrophils # (A) 2.6 k/uL (1.3-7.7); Neutrophils % (A) 56 %; Platelet Count 171 k/uL (150-450); RBC 3.94 m/uL (4.30-5.90); RDW 13.5 % (11.5-15.5); WBC 4.7 k/uL (3.8-10.6)
[2022-09-20 13:06] LABS: ALT 25 U/L (4-49); AST 32 U/L (17-59); African American GFR (CKD) 51 (>60 ml/min/1.73 sqM); Albumin 3.4 g/dL (3.5-5.0); Alkaline Phosphatase 72 U/L (38-126); Anion Gap 10 mmol/L; Blood Urea Nitrogen 27 mg/dL (9-20); Calcium 8.3 mg/dL (8.4-10.2); Carbon Dioxide 23 mmol/L (22-30); Chloride 105 mmol/L (98-107); Glucose 112 mg/dL (74-99); Magnesium 2.3 mg/dL (1.6-2.3); Non-African American GFR(CKD) 44 (>60 ml/min/1.73 sqM); Sodium 138 mmol/L (137-145); Total Bilirubin 1.7 mg/dL (0.2-1.3); Total Protein 6.5 g/dL (6.3-8.2)
[2022-09-20 13:08] LABS: Ionized Calcium 4.7 mg/dL (4.5-5.3)
[2022-09-20 13:17] LABS: INR 1.2 (<1.2); Partial Thromboplastin Time 23.6 sec (22.0-30.0)
--- NOTE | 2022-09-20 14:10 | XR ---
EXAMINATION TYPE: XR chest 1V portable DATE OF EXAM: 09/20/2022 Comparison: 07/13/2021 Clinical History: 71-year-old male Post Operative Cardiac Surgery Findings: Left anterior chest wall AICD generator with right atrial, right ventricular, and coronary sinus lead s. Heart borderline enlarged. No consolidation or pleural effusion. Impression: Borderline cardiomegaly. No definite acute process.
--- NOTE | 2022-09-20 15:29 | P.ANPRN ---
Procedure Note - Anesthesia - Invasive Line Left Arterial Line Time Out Performed: Yes Location of Patient: PreOp Preparation: Sterile Prep, Sterile Dressing Arterial Line Location: Radial Ultrasound Used: No Purpose - Visualization and Identification of Vasculature: No Narrative: Central line placement per sterile protocol utilized. Informed consent obtained from the patient. Procedure was performed under complete aseptic precautions. The left wrist is slightly extended and placed on a roll of cloth. Radial artery palpated and appeared to have a intact collateral circulation. Front of the wrist was cleaned with ChloraPrep. It was draped and 2 mL of 1% lidocaine was infiltrated and ability into the front of the wrist. A 20-gauge two and half inch Arrow arterial catheter was inserted and a bright red blood/back was noticed. It was connected to the pressure monitoring line and the flashback was confirmed. The line was sutured into the skin. Tegaderm dressing was applied. Patient tolerated the procedure very well with no apparent complications. - DAWSON Intraop Pre Bypass DAWSON Intraop - Anesthesia Indication: Transcatheter aortic valve replacement procedure Date of Procedure: 09/20/22 Pre-operative Diagnosis: Severe aortic stenosis Post-operative Diagnosis: Severe aortic stenosis status post-transcatheter aortic valve replacement Surgeon: Morgan Moyer Ejection Fraction: Normal Regional Wall Motion Abnormalities: None Left Ventricle Hypertrophy: Yes R. Ventricle Function: Normal Aortic Valve: Calcified aortic valve with severe aortic stenosis noted. Peak gradient 48 mmHg the mean mean gradient 28 mm Anatomy: Trileaflet Aortic Stenosis: Severe Aortic Regurgitation: Trace Mitral Stenosis: None Mitral Regurgitation: None Tricuspid Stenosis: None Tricuspid Regurgitation: Trace Pulmonic Regurgitation: None R. Atrial Dilation: No R. Atrial PFO: Yes L. Atrial Dilation: No Aortic Dissection: No Aortic Calcification: None Plural Effusion: None - DAWSON Intraop Post Bypass DAWSON Intraop Post Bypass Procedure Performed: Transcatheter aortic valve replacement Ejection Fraction: Normal Regional Wall Motion Abnormalities: None R. Ventricle Function: Normal Aortic Valve: Prosthetic aortic valve in situ. Appears to be seated well. Mean gradient across the valve is 5 mm of Hg and peak gradient is 12 mmHg. trace paravalvular leak noted. Mitral Valve: Unchanged Tricuspid: Unchanged Pulmonic: Unchanged Aortic Dissection: No
[2022-09-20] MEDS: ceFAZolin 3 GM in SODIUM CHLORIDE 0.9% 100 ML IVPB SCH ×2 (16:00→23:53)
[2022-09-20 17:30] LABS: Glucose,Whole Blood 118 mg/dL (70-110)
[2022-09-20 20:07] LABS: Glucose,Whole Blood 130 mg/dL (70-110)
[2022-09-20] MEDS: POTASSIUM CHLORIDE ER 20 MEQ TAB.ER PO SCH ×2 (20:07→23:57)
[2022-09-20] MEDS ORDERED: SENNOSIDES-DOCUSATE SODIUM 1 EACH TAB PO SCH (21:00)
[2022-09-20 23:22] LABS: Magnesium 2.1 mg/dL (1.6-2.3); Potassium 3.9 mmol/L (3.5-5.1)
[2022-09-20] MEDS ORDERED: Potassium Replacement Protocol 1 EACH MISC MISCELLANE PRN (23:45)
[2022-09-21] MEDS ORDERED: HEPARIN SODIUM,PORCINE/PF 5,000 UNIT/0.5 ML SYRINGE SQ SCH
[2022-09-21] MEDS ORDERED: POTASSIUM CHLORIDE ER 20 MEQ TAB.ER PO SCH
[2022-09-21] MEDS ORDERED: METOPROLOL SUCCINATE (ER) 50 MG TAB.ER.24H PO STA (00:56)
[2022-09-21 06:31] LABS: Glucose,Whole Blood 129 mg/dL (70-110)
[2022-09-21 06:47] LABS: Basophils % (A) 0 %; Eosinophils # (A) 0.1 k/uL (0-0.7); Eosinophils % (A) 1 %; HCT 40.5 % (39.0-53.0); HGB 13.7 gm/dL (13.0-17.5); Lymphocytes # (A) 0.9 k/uL (1.0-4.8); Lymphocytes % (A) 14 %; MCH 33.2 pg (25.0-35.0); MCHC 33.8 g/dL (31.0-37.0); MCV 98.2 fL (80.0-100.0); Mean Platelet Volume 7.7; Monocytes # (A) 0.6 k/uL (0-1.0); Monocytes % (A) 9 %; Neutrophils % (A) 74 %; Platelet Count 178 k/uL (150-450); RBC 4.12 m/uL (4.30-5.90); RDW 13.6 % (11.5-15.5); WBC 6.7 k/uL (3.8-10.6)
[2022-09-21 06:58] LABS: ALT 22 U/L (4-49); AST 32 U/L (17-59); African American GFR (CKD) 54 (>60 ml/min/1.73 sqM); Albumin 3.8 g/dL (3.5-5.0); Alkaline Phosphatase 72 U/L (38-126); Anion Gap 6 mmol/L; Blood Urea Nitrogen 22 mg/dL (9-20); Calcium 8.7 mg/dL (8.4-10.2); Carbon Dioxide 29 mmol/L (22-30); Chloride 103 mmol/L (98-107); Glucose 113 mg/dL (74-99); Ionized Calcium 4.7 mg/dL (4.5-5.3); Magnesium 2.2 mg/dL (1.6-2.3); Non-African American GFR(CKD) 46 (>60 ml/min/1.73 sqM); Potassium 4.5 mmol/L (3.5-5.1); Sodium 138 mmol/L (137-145); Total Bilirubin 1.8 mg/dL (0.2-1.3); Total Protein 6.9 g/dL (6.3-8.2)
[2022-09-21] MEDS: INSULIN ASPART (NovoLOG) 100 UNIT/ML VIAL SQ SCH (07:06)
[2022-09-21] MEDS ORDERED: bisacodyL 10 MG SUPP RECTAL PRN (09:00)
[2022-09-21] MEDS ORDERED: MAGNESIUM HYDROXIDE 2,400 MG/30 ML CUP PO PRN (09:00)
[2022-09-21] MEDS: POTASSIUM CHLORIDE ER 20 MEQ TAB.ER PO SCH ×2 (09:20→10:00)
[2022-09-21] MEDS: MONTELUKAST 10 MG TAB PO SCH ×2 (09:20→10:00)
[2022-09-21] MEDS: APIXABAN 5 MG TAB PO SCH ×2 (09:20→10:00)
[2022-09-21] MEDS: METOPROLOL SUCCINATE (ER) 25 MG TAB.ER.24H PO SCH ×2 (09:20→10:00)
[2022-09-21] MEDS: ASPIRIN 81 MG PO SCH ×2 (09:20→10:00)
[2022-09-21] MEDS: CLOPIDOGREL 75 MG TAB PO SCH ×2 (09:20→10:00)
[2022-09-21 09:25] VITALS: TEMP 98.2
[2022-09-21] MEDS: ceFAZolin 3 GM in SODIUM CHLORIDE 0.9% 100 ML IVPB SCH (09:33)
[2022-09-21] MEDS: BUMETANIDE 1 MG TAB PO SCH ×2 (09:33→10:54)
[2022-09-21] MEDS: DAPAGLIFLOZIN PROPANEDIOL 5 MG TABLET PO SCH ×2 (09:33→10:54)
--- NOTE | 2022-09-21 09:45 | XR ---
EXAMINATION TYPE: XR chest 1V portable DATE OF EXAM: 09/21/2022 6:20 AM COMPARISON: Chest radiographs from 09/20/2022. TECHNIQUE: XR chest 1V portable Frontal view of the chest. CLINICAL INDICATION:Male, 71 years old with history of Post Operative Cardiac Surgery; FINDINGS: Lungs/Pleura: There is no evidence of pleural effusion, focal consolidation, or pneumothorax. Pulmonary vascularity: Unremarkable. Heart/mediastinum: Cardiomediastinal silhouette is unremarkable. Three lead cardiac conduction device overlying the left hemithorax with lead tips projecting over the right ventricle, right atrium and c oronary sinus. Musculoskeletal: No acute osseous pathology. IMPRESSION: No acute cardiopulmonary disease/process.
[2022-09-21 10:41] VITALS: BMI 39.1
--- NOTE | 2022-09-21 11:45 | CA ---
Transthoracic Echo Report Name: Luis Oneill Age: 71 Gender: M : 1950 Exam Date: 09/21/2022 08:40 Exam Location: [facility] Ht (in): 71 Wt (lb): 280 Ordering Physician: Wilton Brown DO Attending/Referring Phys: Wilton Brown DO Power Checker John Nix Procedure CPT: Indications: post TAVR Cardiac Hx: Technical Quality: Fair Contrast 1: Total Dose (mL): Contrast 2: Total Dose (mL): MEASUREMENTS (Male / Female) Normal Values 2D ECHO LV Diastolic Diameter PLAX 5.1 cm 4.2 - 5.9 / 3.9 - 5.3 cm LV Systolic Diameter PLAX 3.6 cm IVS Diastolic Thickness 1.1 cm 0.6 - 1.0 / 0.6 - 0.9 cm LVPW Diastolic Thickness 1.6 cm 0.6 - 1.0 / 0.6 - 0.9 cm LV Relative Wall Thickness 0.5 RV Internal Dim ED PLAX 5.3 cm LVOT Diameter 2.2 cm Aortic Root Diameter 3.3 cm LA Systolic Diameter LX 3.6 cm 3.0 - 4.0 / 2.7 - 3.8 cm LV Diastolic Volume MOD BP 108.2 cm??? 67 - 155 / 56 - 104 cm??? LV Systolic Volume MOD BP 52.2 cm??? - / 19 - 49 cm??? LV Ejection Fraction MOD BP 51.7 % >= 55 % LV Cardiac Index MOD BP 1108.7 cm???/min???m??? LV Diastolic Volume MOD 4C 112.9 cm??? LV Systolic Volume MOD 4C 63.0 cm??? LV Ejection Fraction MOD 4C 44.2 % LV Cardiac Index MOD 4C 989.5 cm???/min???m??? LV Diastolic Length 4C 7.7 cm LV Systolic Length 4C 7.2 cm LV Diastolic Volume MOD 2C 102.5 cm??? LV Systolic Volume MOD 2C 41.3 cm??? LV Ejection Fraction MOD 2C 59.7 % LV Cardiac Index MOD 2C 1212.1 cm???/min???m??? LV Diastolic Length 2C 7.6 cm LV Systolic Length 2C 6.7 cm LA Volume 87.9 cm??? 18 - 58 / 22 - 52 cm??? Ascending Aorta Diameter 3.6 cm DOPPLER AV Peak Velocity 258.3 cm/s AV Peak Gradient 26.7 mmHg AV Mean Velocity 177.5 cm/s AV Mean Gradient 14.8 mmHg AV Velocity Time Integral 51.6 cm AI Peak Velocity 192.8 cm/s AI Peak Gradient 14.9 mmHg AI Pressure Half Time 949.1 ms LVOT Peak Velocity 103.3 cm/s LVOT Peak Gradient 4.3 mmHg LVOT Velocity Time Integral 22.9 cm LVOT Stroke Volume 87.4 cm??? LVOT Stroke Volume Index 35.9 ml/m??? LVOT Cardiac Index 1731.0 cm???/min???m??? AV Area Cont Eq vti 1.7 cm??? AV Area Cont Eq pk 1.5 cm??? MV Peak Velocity 123.6 cm/s MV Peak Gradient 6.1 mmHg MV Mean Velocity 50.0 cm/s MV Mean Gradient 1.5 mmHg MV Velocity Time Integral 43.4 cm MR Peak Velocity 280.3 cm/s MR Peak Gradient 31.4 mmHg MV E' Velocity 9.4 cm/s TR Peak Velocity 186.1 cm/s TR Peak Gradient 13.9 mmHg Right Ventricular Systolic Press 20.6 mmHg PV Peak Velocity 117.3 cm/s PV Peak Gradient 5.5 mmHg FINDINGS Left Ventricle Normal LV size . Left ventricular ejection fraction is estimated at 55-60 %.Moderately increased left ventricular wall thickness. Right Ventricle Moderate right ventricular dilatation. RVSP= 30mmhg. Pace wire noted within the RV. Right Atrium Moderate right atrial dilatation. Left Atrium LA volume index= 36ml/m2 Mitral Valve Structurally normal mitral valve. Aortic Valve Post TAVR, AV Area by VTI= 1.7cm2 . mild aortic regurgitation. Tricuspid Valve Tricuspid valve not well visualized. Mild TR. Pulmonic Valve Pulmonic valve not well visualized. Trace pulmonic regurgitation. Pericardium Normal pericardium. Aorta Normal size aortic root and proximal ascending aorta. CONCLUSIONS 1. Normal left ventricle size and systolic function 2. Bioprosthetic aortic valve with mild aortic regurgitation 3. Mild tricuspid regurgitation 4. A wire was noted in the right ventricle Previewed by: Dr. Henri Fernandez MD (Electronically Signed) Final Date: 21 September 2022 11:45
--- NOTE | 2022-09-21 12:01 | P.DS ---
Providers Date of admission: 09/20/22 06:35 Expected date of discharge: 09/21/22 Attending physician: Brandt Santizo DO Consults: 09/20/22 08:00 Consult to Anesthesia Routine Consulting Provider: Anesthesia,Services Consult Reason/Comments: Cardiac Surgery Pre-Op 09/20/22 10:28 Consult Physician Routine Consulting Provider: Morgan Moyer Consult Reason/Comments: post TAVR Do you want consulting provider notified?: Already Contacted Primary care physician: Naina Gore Hospital Course: MEDICAL HISTORY: 1. Calcified aortic valve with severe symptomatic aortic valve stenosis, NYHA class II 2. Coronary artery disease with previous myocardial infarction and recent PCI 3. Paroxysmal atrial fibrillation on Eliquis for anticoagulation 4. AV node dysfunction status post [employer] permanent pacemaker in 2018 5. Hypertension 6. Hyperlipidemia 7. Obstructive sleep apnea 8. Type 2 diabetes mellitus 9. Venous insufficiency PROCEDURE: 1. Percutaneous aortic valve implantation using a 29 mm Fitzgerald Yvonne valve under DAWSON and fluoroscopy guidance 2. Transesophageal echocardiography performed by anesthesia 3. Ultrasound-guided access and repair of right femoral artery access site by Perclose closure device 4. Placement of temporary pacemaker wire 5. Aortic root angiography HISTORY OF PRESENT ILLNESS: This is a 71-year-old gentleman who follows on an outpatient basis with Dr. Gore for primary care and Dr. Maddox for cardiology. He has a known history of severe aortic stenosis and has been symptomatic with increased exertional dyspnea. He had been referred to structural heart clinic for evaluation for transcatheter aortic valve replacement after heart catheterization and transesophageal echocardiogram were completed. Echoc ardiography demonstrated systolic function with EF 50-55%, aortic valve area 0.69 cm with a peak/mean gradient 78/49 mmHg. Heart catheterization showed ostial LAD stenosis 70-80% and he did receive a drug-eluting stent on 08/15/2022. After workup was completed STS risk score was calculated along with incremental risk and the patient was felt to be appropriate for surgical or transcatheter aortic valve replacement, however the patient preferred transcatheter approach. The usual course of TAVR was discussed in detail the patient, risks and benefits were reviewed, shared decision making between cardiology, surgery, and the patient/family took place, and the patient consented to proceed with the procedure. HOSPITAL COURSE: The patient was brought to the hospital on 09/20/22, was taken to the extended stay area, prepared in the usual fashion, and subsequently taken to the cardiac catheterization laboratory where Dr. Santizo and Dr. Moyer completed TAVR procedure under general anesthesia with fluoroscopy and DAWSON. The valve was deployed under rapid ventricular pacing and proceeded without event. At the end of the procedure there was mean gradient 5 mmHg, hemodynamics were felt to be acceptable, and there was no evidence of significant perivalvular leak. Upon completion of the procedure the patient was extubated and was transferred to the cardiovascular intensive care unit where he was recovered and monitored hemodynamically. His oxygen was titrated down, he was tolerating oral diet, his pain was controlled, follow-up TTE demonstrated normal left ventricular systolic function, normally functioning TAVR valve with no significant gradient or paravalvular leak, and he was ready to be discharged to home on postoperative day #1. He received written and verbal instruction regarding his medications, activity restrictions, signs and symptoms requiring physician notification, and follow-up appointments. Patient Condition at Discharge: Stable Plan - Discharge Summary Discharge Rx Participant: No New Discharge Prescriptions: New Acetaminophen Tab [Tylenol] 650 mg PO Q4HR PRN tab PRN Reason: Fever And/ Or Mild Pain (1-3) Sennosides-Docusate Sodium [Senokot-S] 2 each PO HS PRN tab PRN Reason: Constipation Continue Atorvastatin [Lipitor] 80 mg PO HS #90 tab Metoprolol Succinate (ER) [Toprol XL] 25 mg PO DAILY #90 tab.er.24h Potassium Chloride ER [K-Dur 20] 20 meq PO BID Montelukast [Singulair] 10 mg PO DAILY Dapagliflozin Propanediol [Farxiga] 5 mg PO DAILY Apixaban [Eliquis] 5 mg PO BID Clopidogrel [Plavix] 75 mg PO DAILY Bumetanide [BUMEX] 1 mg PO DAILY Semaglutide [Ozempic] 0.25 mg SQ FR Nitroglycerin Sl Tabs [Nitrostat] 0.4 mg SUBLINGUAL Q5M PRN PRN Reason: Chest Pain Aspirin [Adult Low Dose Aspirin EC] 81 mg PO DAILY Discharge Medication List Atorvastatin [Lipitor] 80 mg PO HS #90 tab 05/09/17 [Rx] Metoprolol Succinate (ER) [Toprol XL] 25 mg PO DAILY #90 tab.er.24h 05/09/17 [Rx] Apixaban [Eliquis] 5 mg PO BID 07/13/21 [History] Dapagliflozin Propanediol [Farxiga] 5 mg PO DAILY 07/13/21 [History] Montelukast [Singulair] 10 mg PO DAILY 07/13/21 [History] Potassium Chloride ER [K-Dur 20] 20 meq PO BID 07/13/21 [History] Aspirin [Adult Low Dose Aspirin EC] 81 mg PO DAILY 08/11/22 [History] Clopidogrel [Plavix] 75 mg PO DAILY 08/11/22 [History] Nitroglycerin Sl Tabs [Nitrostat] 0.4 mg SUBLINGUAL Q5M PRN 08/11/22 [History] Semaglutide [Ozempic] 0.25 mg SQ FR 08/11/22 [History] Bumetanide [BUMEX] 1 mg PO DAILY 09/08/22 [History] Acetaminophen Tab [Tylenol] 650 mg PO Q4HR PRN tab 09/21/22 [Rx] Sennosides-Docusate Sodium [Senokot-S] 2 each PO HS PRN tab 09/21/22 [Rx] Follow up Appointment(s)/Referral(s): Naina Gore MD [Primary Care Provider] - As Needed Zachary Maddox MD [STAFF PHYSICIAN] - 09/27/22 3:15 pm (Your appointment 09/27/2022 is for a groin check. You will also have a 30 day post TAVR echo and appointment with Dr. Maddox 12/01/2022 at 3:15 PM, as well as a 1 year post TAVR echo and appointment with Dr. Maddox 08/24/2023 at 3:15 PM) Clinic,Structural Heart [NON-STAFF] - 12/01/22 2:45 pm (Please come to the valve clinic 12/01/2022 at 2:45 PM prior to your appointment with Dr. Maddox for 30 day follow-up, as well as 08/24/2023 at 2:45 PM for 1 year follow-up) Ambulatory/Diagnostic Orders: Complete Blood Count w/diff [LAB.AMB] Location: None Selected Complete Blood Count w/diff [LAB.AMB] Location: None Selected Comprehensive Metabolic Panel [LAB.AMB] Location: None Selected Comprehensive Metabolic Panel [LAB.AMB] Location: None Selected Activity/Diet/Wound Care/Special Instructions: DISCHARGE INSTRUCTIONS: 1. No driving for 1 week, or until physician gives their ok. 2. No lifting, pushing, or pulling more than 5-10 pounds for 1 week. 3. Hold both groins when you cough or sneeze for the next 2 weeks. Bruising is common, but report increased swelling, pain or fever >101F 4. Shower daily. No pool, hot tub, or bathtub for 1 week 5. No powders, lotions, ointments on incisions. 6. No straining, including for bowel movements. Use stool softner if necessary 7. Stairs are not an issue. Go slowly, using handrail and take 1 step at a time. Ambulate several times daily 8. Continue pain control per as needed orders. 9. Take only the medications listed on your discharge form 10. Eat low salt (limited to 2 grams or 2000 milligrams) daily, avoid adding salt, avoid canned/processed foods 11. Take your weight daily in the morning and record, bring with you to your follow up appointments 12. Keep all follow up appointments. You will need a valve clinic appointment at 30 days and 1 year post procedure for follow up 13. You have been referred to and are expected to begin Cardiac Rehab in approximately 4 weeks. 14. You will need antibiotics prior to any dental work, including cleanings, and any surgeries to prevent Endocarditis (bacterial infection in your heart) For any questions or concerns please call your valve coordinators: Diana or Ayan @ Discharge Disposition: HOME SELF-CARE
[2022-09-21 12:22] VITALS: BP 126/67; PULSE 51; RESP 12
[2022-09-21] MEDS ORDERED: ATORVASTATIN 80 MG TAB PO SCH (21:00)
--- NOTE | 2022-09-22 07:52 | P.OP ---
Description of Procedure: Transcatheter Aoritc Valve Replacement Operative report PROCEDURE PERFORMED: 1. Percutaneous Aortic Valve Implantation using an Fitzgerald 29 mm Yvonne S3. 2. Ultrasound guided access and repair of right femoral artery access site by Perclose closure device. 3. Placement of temporary pacemaker wire. 4. Aortic root angiography INDICATIONS: 1. 71 year-old with a history of severe symptomatic aortic valve stenosis. PERFORMING PHYSICIANS: 1. Brantd Santizo DO Interventional Cardiology 2. Zachary Maddox MD Interventional Cardiology. 3. Morgan Moyer MD, Cardiothoracic Surgeon. SEDATION: General anesthesia was provided by anesthesia, see separate note APPROACH: Right femoral artery via percutaneous approach PROCEDURE DESCRIPTION: The patient was discussed at valve clinic with multidisciplinary approach with cardiothoracic surgeon as well as manager technical sales and thought better treated with TAVR. Risks, benefits, and alternatives of the procedure had been explained to the patient who understood the risks and agreed to proceed. After consents were obtained, patient was brought to the transcatheter aortic valve implantation ro om in the cardiac builder's labourer and conscious sedation was provided by the anesthesiologist (see separate report). Once full body sterile prep was performed, left femoral venous access was obtained and a temporary pacemaker was placed in the right ventricle. Pacing threshholds were checked and deemed appropriate. Next the left femoral artery was accessed using a modified Seldinger technique, ultrasound guidance and micropuncture technique. A 6 Japanese destination sheath was placed in the left femoral artery. Next, a 6- Japanese pigtail catheter was advanced into the aorta and positioned in the aortic root, aortic root angiography was performed to determine optimal deployment angle. The right femoral artery was accessed using modified Seldinger technique, micropuncture technique and under direct ultrasound guidance. Femoral angiogram was done showing access in the common femoral artery and a 6Fr sheath was placed. Next preclose technique was performed using 2 Percloses. Next a 0.035 [place] wire was placed in the Aorta via a pigtail catheter. Over that the arteriotomy was serially dilated and a 18 Fr [place] sheath was placed. Next a 6F- AL1 catheter was advanced over a wire to the aortic root. A straight wire was advanced through the catheter and used to cross the severely stenotic valve. The AL1 was then exchanged for a 6Fr pigtail catheter and pressure measurements were obtained. The 0.035 [place] wire was then positioned in the apex. Next a 29 mm Yvonne S3 was advanced. The valve was then positioned across the aortic valve and confirmed with aortic root angiography. The valve was then deployed in proper position using slow balloon inflation and with rapid pacing in conjuncture with aortic root angiography. The delivery system was withdrawn back into the arch and an aortic root injection in conjunction with DAWSON demonstrated a satisfactory result. There was mild trace valvular leak. There was no evidence of any other significant abnormalities. The preclose Perclose was then deployed in the right femoral artery however one of the Percloses broke and therefore an 8Fr Angioseal was placed. Angiography from the left femoral approach showed no extravasation. The TVP was removed and the left femoral sheath was removed with pressure held. The left femoral angiogram demonstrated an arteriotomy in the common femoral artery and this was repaired using a 6F angioseal device with complete hemostasis. The temporary venous pacemaker was sutured in place. The patient was then transported to the ICU in hemodynamically stable condition, requiring no pressor support. COMPLICATIONS: None CONCLUSION: 1. Implantaion of Fitzgerald 29 mm Yvonne S3 transcatheter aortic valve via right femoral approach under DAWSON and fluoro guidance with trace slick-valvular aortic regurgitation. 2. Placement of temporary pacemaker wire 3. Aortic Root Aortogram. RECOMMENDATIONS: The patient will be monitored in the ICU for hemodynamic and electrical stability.
[2022-09-22] MEDS ORDERED: NON FORMULARY DRUG (Semaglutide [Ozempic] 0.25 MG/0.2 ML Each) SQ SCH (09:00)
== END 2022-09-21 14:17 | disposition home or self-care (01) | DRG 267 ==
LOC: 2ORMAIN 06:35 → 2SICU 11:28
PROVIDERS: ADMIT Internal Medicine; ATTEND Internal Medicine
PROC: 04QK0ZZ Repair Right Femoral Artery, Open Approach (ICD-10-PCS; 2022-09-20)
PROC: 5A1223Z Performance of Cardiac Pacing, Continuous (ICD-10-PCS; 2022-09-20)
PROC: B3101ZZ Fluoroscopy of Thoracic Aorta using Low Osmolar Contrast (ICD-10-PCS; 2022-09-20)
PROC: 02RF38Z Replacement of Aortic Valve with Zooplastic Tissue, Percutaneous Approach (ICD-10-PCS; principal; 2022-09-20 09:50)
PROC: B246ZZ4 Ultrasonography of Right and Left Heart, Transesophageal (ICD-10-PCS; 2022-09-21)
DX: I35.0 Nonrheumatic aortic (valve) stenosis (principal); Z00.6 Encounter for examination for normal comparison and control in clinical research program; I25.2 Old myocardial infarction; I25.10 Atherosclerotic heart disease of native coronary artery without angina pectoris; J30.81 Allergic rhinitis due to animal (cat) (dog) hair and dander; E11.9 Type 2 diabetes mellitus without complications; I48.0 Paroxysmal atrial fibrillation; G47.33 Obstructive sleep apnea (adult) (pediatric); I07.1 Rheumatic tricuspid insufficiency; I87.2 Venous insufficiency (chronic) (peripheral); E66.01 Morbid (severe) obesity due to excess calories; E78.5 Hyperlipidemia, unspecified; I10 Essential (primary) hypertension; Z79.01 Long term (current) use of anticoagulants; Z95.5 Presence of coronary angioplasty implant and graft; Z68.39 Body mass index [BMI] 39.0-39.9, adult; Z95.0 Presence of cardiac pacemaker
CPT/HCPCS: 33361; 71045; 80053; 82330; 83735; 84132; 85025; 85610; 85730; 86850; 86900; 86901; 93306; 93312; 93320; 93325

== ENCOUNTER → 2023-05-15 | Outpatient (CLI) | payer MEDICARE, BC ==
--- NOTE | 2023-05-16 15:36 | XR ---
EXAMINATION TYPE: XR lumbar spine with bend/flex DATE OF EXAM: 05/15/2023 3:28 PM CLINICAL INDICATION:Male, 72 years old with history of M54.50 BACK PAIN; [facility] COMPARISON: None TECHNIQUE: XR lumbar spine with bend/flex - Frontal, lateral and coned in L5-S1 lateral views of the spine. FINDINGS: No evidence of any acute osseous pathology. No evidence of loss of vertebral body height i s seen. There is normal alignment of the lumbar vertebral bodies. No significant retrolisthesis or a nterolisthesis with flexion and extension maneuvers. Mild endplate spondylosis is present. IMPRESSION: 1. No acute fracture. 2. Mild multilevel endplate spondylosis..
== END | disposition home or self-care (01) ==
LOC: RADXRMAIN 15:07
PROVIDERS: ATTEND Internal Medicine
DX: M47.816 Spondylosis without myelopathy or radiculopathy, lumbar region (principal)
CPT/HCPCS: 72114

== ENCOUNTER → 2023-06-01 | Outpatient (CLI) | payer MEDICARE ==
--- NOTE | 2023-06-02 13:24 | CT ---
EXAMINATION TYPE: CT thor lumbar spine wo con DATE OF EXAM: 06/01/2023 COMPARISON: HISTORY: back pain CT DLP: 2530 mGycm Automated exposure control for dose reduction was used. Contrast: None Technique: Axial images 3 mm thick sections. Reconstructed images in the coronal and sagittal plane. FINDINGS: Some uncovertebral joint hypertrophy is contributing to left foraminal stenosis in the lower C6-7 cer vical spine. No focal disc herniations or significant disc bulges evident within the thoracic spine. Broad-based disc bulges moderate anterior thecal sac flattening at the L2-3 level. Mild disc bulging is present with anterior thecal sac flattening L3-4. Disc bulge is present L4-5 with minimal thecal s ac compression. Schmorl's node formation is present L2-3. Some disc space narrowing is present through the L2-3 level . Vertebral body heights are preserved. Some spondylosis is present within the mid and lower thoracic s pine and within the lower lumbar spine IMPRESSION: 1. SPONDYLOSIS. 2. MILD DISC BULGING PRESENT AT L2-3 THROUGH L4-5. THIS HAS SOME MILD TO MODERATE ANTERIOR THECAL SAC IMPRESSION WITHOUT AP SPINAL CANAL STENOSIS DISCUSSED ABOVE. 3. SCHMORL'S NODE FORMATION L2-L3
== END | disposition home or self-care (01) ==
LOC: RADCTMAIN 12:13
PROVIDERS: ATTEND Internal Medicine
DX: M47.815 Spondylosis without myelopathy or radiculopathy, thoracolumbar region (principal); M51.36 Other intervertebral disc degeneration, lumbar region
CPT/HCPCS: 72128; 72131

== ENCOUNTER 2023-07-21 03:37 | Inpatient (IN) | payer MEDICARE ==
[2023-07-21] MEDS: HYDROmorphone 1 MG/ML 1 ML SYRINGE IVP STA ×2 (04:25→08:22)
--- NOTE | 2023-07-21 04:26 | ED ---
Back Pain HPI <Niyah Clark - Last Filed: 07/21/23 08:55> - General Source: EMS Limitations: no limitations <Kristel Yates - Last Filed: 07/22/23 06:48> - General Chief Complaint: Back Pain/Injury Stated Complaint: Back pain Time Seen by Provider: 07/21/23 04:25 - History of Present Illness Initial Comments: Is a 72-year-old male with a history of chronic back pain that was exacerbated after gardening in April. Patient has followed with his primary care he has had 2 steroid injections and he is on chronic pain medications. Patient states that yesterday he was actually feeling pretty good getting around easily but tonight when he went to bed he had significant worsening in his pain. Pain feels like a back spasm. He is scheduled to see pain management on August 07 Also reports that he has been having a lot of trouble sleeping recently. His CPAP machine broke. He is scheduled for repeat sleep study in July however he was advised he has to see a sleep medicine doctor before the sleep study and so that has been scheduled. Sleep study is scheduled for August 21 (Kristel Yates) - Related Data Home Medications Medication Instructions Recorded Confirmed Apixaban [Eliquis] 5 mg PO BID 07/13/21 07/21/23 Montelukast [Singulair] 10 mg PO DAILY 07/13/21 07/21/23 Potassium Chloride ER [K-Dur 20] 20 meq PO DAILY 07/13/21 07/21/23 Clopidogrel [Plavix] 75 mg PO DAILY 08/11/22 07/21/23 Nitroglycerin Sl Tabs [Nitrostat] 0.4 mg SUBLINGUAL Q5M PRN 08/11/22 07/21/23 Baclofen [Lioresal] 10 mg PO BID 07/21/23 07/21/23 Bumetanide [BUMEX] 2 mg PO DAILY 07/21/23 07/21/23 HYDROcodone/APAP 7.5-325MG [[place] 1 tab PO Q12H PRN 07/21/23 07/21/23 7.5-325] tadalafiL 5 mg PO DAILY PRN 07/21/23 07/21/23 Previous Rx's Medication Instructions Recorded Atorvastatin [Lipitor] 80 mg PO HS #90 tab 05/09/17 Metoprolol Succinate (ER) [Toprol 25 mg PO DAILY #90 tab.er.24h 05/09/17 XL] Allergies Allergy/AdvReac Type Severity Reaction Status Date / Time cat dander Allergy Dyspnea Verified 07/21/23 08:54 dust Allergy Dyspnea Uncoded 09/20/22 06:53 Review of Systems ROS Other: All systems not noted in ROS Statement are negative. <Niyah Clark - Last Filed: 07/21/23 08:55> ROS Other: All systems not noted in ROS Statement are negative. <Kristel Yates P - Last Filed: 07/22/23 06:48> ROS Statement: Those systems with pertinent positive or pertinent negative responses have been documented in the HPI. Past Medical History Past Medical History: Atrial Fibrillation, Coronary Artery Disease (CAD), Joana betes Mellitus, Hyperlipidemia, Hypertension, Liver Disease, Myocardial Infarction ([place]), Renal Disease, Skin Disorder, Sleep Apnea/CPAP/BIPAP Additional Past Medical History / Comment(s): Severe aortic stenosis, SOB w/exertion, uses CPAP, decreased kidney function stage 3, cirrhosis Last Myocardial Infarction Date:: april 2017 History of Any Multi-Drug Resistant Organisms: None Reported Past Surgical History: Heart Catheterization With Stent, Orthopedic Surgery, Pacemaker Additional Past Surgical History / Comment(s): rt ankle surgery with plate and 7 screws, I&D rectal cyst, pacemaker medtronic, pt states he has a total of 6 cardiac stents ([address] Maddox and 1 at [facility]) Past Anesthesia/Blood Transfusion Reactions: No Reported Reaction Date of Last Stent Placement:: 2022 Type of Cardiac Device: Permanent Pacemaker Device Placement Date:: Smoking Status: Never smoker - Past Family History Mother Family Medical History: Cancer Additional Family Medical History / Comment(s): breast, skin cancer Father Family Medical History: Coronary Artery Disease (CAD) <Kristel Yates P - Last Filed: 07/22/23 06:48> General Exam Limitations: no limitations <Kristel Yates P - Last Filed: 07/22/23 06:48> - General Exam Comments Initial Comments: Physical Exam GENERAL: Chronically ill-appearing elderly gentleman HENT: Normocephalic, Atraumatic EYES: PERRL, EOMI PULMONARY: Unlabored respirations. CARDIOVASCULAR: RRR Warm and well perfused extremities ABDOMEN: Patient has rhythmic movement of his diaphragm which she reports is due to his cardiac pacemaker and has been a chronic issue for him worse when he lays flat or on his left side SKIN: No rashes or bruising : Deferred NEUROLOGIC: Alert and oriented Normal speech Antalgic gait MUSCULOSKELETAL: Moving all extremities with no apparent injury PSYCHIATRIC: No SI/HI (Kristel Yates) Course Vital Signs 07/21/23 07/21/23 07/21/23 03:52 04:41 04:42 Temperature 99.0 F Pulse Rate 63 56 L 61 Respiratory 18 12 Rate Blood Pressure 98/62 110/57 110/57 O2 Sat by Pulse 96 97 95 Oximetry 07/21/23 07/21/23 07/21/23 05:00 06:00 07:00 Temperature Pulse Rate 59 L 66 52 L Respiratory Rate Blood Pressure 110/57 105/53 97/63 O2 Sat by Pulse 97 99 Oximetry 07/21/23 07/21/23 08:18 09:53 Temperature Pulse Rate 49 L 55 L Respiratory 16 18 Rate Blood Pressure 107/64 101/68 O2 Sat by Pulse 98 100 Oximetry Medical Decision Making - Lab Data Result diagrams: 07/21/23 05:27 07/21/23 05:27 <Niyah Clark - Last Filed: 07/21/23 08:55> - Lab Data Result diagrams: 07/21/23 05:27 07/21/23 05:27 <Kristel Yates - Last Filed: 07/22/23 06:48> - Medical Decision Making Was pt. sent in by a medical professional or institution (Dr. PA, HIGH SCHOOL SPECIAL EDUCATION TEACHER, urgent care, hospital, or [facility]...) When possible be specific @ -No Did you speak to anyone other than the patient for history (EMS, parent, family, police, friend...)? What history was obtained from this source @ - at bedside Did you review nursing and triage notes (agree or disagree)? Why? @ -I reviewed and agree with nursing and triage notes Were old charts reviewed (outside hosp., previous admission, EMS record, old E KG, old radiological studies, urgent care reports/EKG's, [facility] records)? Report findings @ -VS labs were reviewed Differential Diagnosis (chest pain, altered mental status, abdominal pain women, abdominal pain men, vaginal bleeding, weakness, fever, dyspnea, syncope, headache, dizziness, GI bleed, back pain, seizure, CVA, palpatations, mental health)? @ -Differential Back Pain: Strain, zoster, cauda equina syndrome, epidural abscess, vertebral osteomyelitis, discitis, fracture, subluxation, disc herniation, DJD, spinal stenosis, dissection, AAA, pancreatitis, peptic ulcer disease, pyelonephritis, kidney stone, this is not meant to be an all-inclusive list. EKG interpreted by me (3pts min.). @ -As above X-rays interpreted by me (1pt min.). @ -None done CT interpreted by me (1pt min.). @ -CT scan with concern for discitis U/S interpreted by me (1pt. min.). @ -None done What testing was considered but not performed or refused? (CT, X-rays, U/S, labs)? Why? @ -MRI can be performed during admission What meds were considered but not given or refused? Why? @ -None Did you discuss the management of the patient with other professionals (professionals i.e. , PA, HIGH SCHOOL SPECIAL EDUCATION TEACHER, lab, RT, psych nurse, social media community manager, wildland fire fighter, teacher, crime prevention police officer, spring encaser)? Give summary @ -Discussed with admitting physician Was smoking cessation discussed for >3mins.? @ -No Was critical care preformed (if so, how long)? @ -No Were there social determinants of health that impacted care today? How? (Homelessness, low income, unemployed, alcoholism, drug addiction, transportation, low edu. Level, literacy, decrease access to med. care, [facility], rehab)? @ -No Was there de-escalation of care discussed even if they declined (Discuss DNR or withdrawal of care, Hospice)? DNR status @ -No What co-morbidities impacted this encounter? (DM, HTN, Smoking, COPD, CAD, Cancer, CVA, ARF, Chemo, Hep., AIDS, mental health diagnosis, sleep apnea, morbid obesity)? @ -Obesity Was patient admitted / discharged? Hospital course, mention meds given and route, prescriptions, significant lab abnormalities, going to OR and other pertinent info. @ -Admit Patient was seen and evaluated, history is obtained from the patient at bedside. Patient with progressively worsening low back pain. Patient received some Versed and seemed quite sleepy. At that time Dilaudid was held. Lab work was obtained multiple abnormalities most significant for acute rhabdomyolysis, CT scan of the back was obtained I have concern for discitis but CT results were pending. Results were discussed with Dr. Webster who agrees to admit the patient, is aware that CT results are pending and may require consult with spine surgery. Undiagnosed new problem with uncertain prognosis? @ -No Drug Therapy requiring intensive monitoring for toxicity (Heparin, Nitro, Insulin, Cardizem)? @ -No Were any procedures done? @ -No Diagnosis/symptom? @ -Acute rhabdo Acute, or Chronic, or Acute on Chronic? @ -Acute Uncomplicated (without systemic symptoms) or Complicated (systemic symptoms)? @ -Default Side effects of treatment? @ -No Exacerbation, Progression, or Severe Exacerbation? @ -No Poses a threat to life or bodily function? How? (Chest pain, [place], [place], pneumonia, PE, COPD, DKA, ARF, appy, cholecystitis, CVA, Diverticulitis, Homicidal, Suicidal, threat to staff... and all critical care pts) @ -Unlikely Diagnosis/symptom? @ -Lumbar discitis Acute, or Chronic, or Acute on Chronic? @ -Likely acute Uncomplicated (without systemic symptoms) or Complicated (systemic symptoms)? @ -Default Side effects of treatment? @ -None Exacerbation, Progression, or Severe Exacerbation] @ -No Poses a threat to life or bodily function? @ -Yes can advance to spinal abscess sepsis septic shock and (Kristel Yates) - Lab Data Lab Results 07/21/23 07/21/23 07/21/23 Range/Units 05:08 05:27 05:27 WBC 8.9 (3.8-10.6) k/uL RBC 2.96 L (4.30-5.90) m/uL Hgb 9.4 L (13.0-17.5) gm/dL Hct 27.6 L (39.0-53.0) % MCV 93.2 (80.0-100.0) fL MCH 31.6 (25.0-35.0) pg MCHC 33.9 (31.0-37.0) g/dL RDW 14.8 (11.5-15.5) % Plt Count 156 (150-450) k/uL MPV 7.8 Neutrophils % 88 % Lymphocytes % 5 % Monocytes % 5 % Eosinophils % 0 % Basophils % 0 % Neutrophils # 7.9 H (1.3-7.7) k/uL Lymphocytes # 0.5 L (1.0-4.8) k/uL Monocytes # 0.5 (0-1.0) k/uL Eosinophils # 0.0 (0-0.7) k/uL Basophils # 0.0 (0-0.2) k/uL Sodium 127 L (137-145) mmol/L Potassium 3.9 (3.5-5.1) mmol/L Chloride 98 (98-107) mmol/L Carbon Dioxide 21 L (22-30) mmol/L Anion Gap 8 mmol/L BUN 31 H (9-20) mg/dL Creatinine 1.57 H (0.66-1.25) mg/dL Est GFR (CKD-EPI)AfAm 51 (>60 ml/min/1.73 sqM) Est GFR (CKD-EPI)NonAf 44 (>60 ml/min/1.73 sqM) Glucose 175 H (74-99) mg/dL POC Glucose (mg/dL) 205 H (70-110) mg/dL POC Glu Conference Translator ID [place] Calcium 7.9 L (8.4-10.2) mg/dL Total Bilirubin 2.1 H (0.2-1.3) mg/dL AST 61 H (17-59) U/L ALT 25 (4-49) U/L Alkaline Phosphatase 99 (38-126) U/L Creatine Kinase 1105 H* (55-170) U/L Total Protein 6.2 L (6.3-8.2) g/dL Albumin 2.6 L (3.5-5.0) g/dL Disposition Time of Disposition: 08:56 Decision to Admit Reason: Admit from EC Decision Date: 07/21/23 Decision Time: 08:56 <Niyah Clark - Last Filed: 07/21/23 08:55> <Kristel Yates - Last Filed: 07/22/23 06:48> Clinical Impression: Rhabdomyolysis, Lumbar discitis Disposition: ADMITTED IP TO THIS [facility] Condition: Stable
[2023-07-21 05:09] LABS: Glucose,Whole Blood 205 mg/dL (70-110)
[2023-07-21 05:37] LABS: Basophils % (A) 0 %; Eosinophils % (A) 0 %; HCT 27.6 % (39.0-53.0); HGB 9.4 gm/dL (13.0-17.5); Lymphocytes # (A) 0.5 k/uL (1.0-4.8); Lymphocytes % (A) 5 %; MCH 31.6 pg (25.0-35.0); MCHC 33.9 g/dL (31.0-37.0); MCV 93.2 fL (80.0-100.0); Mean Platelet Volume 7.8; Monocytes # (A) 0.5 k/uL (0-1.0); Monocytes % (A) 5 %; Neutrophils # (A) 7.9 k/uL (1.3-7.7); Neutrophils % (A) 88 %; Platelet Count 156 k/uL (150-450); RBC 2.96 m/uL (4.30-5.90); RDW 14.8 % (11.5-15.5); WBC 8.9 k/uL (3.8-10.6)
[2023-07-21 05:46] LABS: ALT 25 U/L (4-49); AST 61 U/L (17-59); African American GFR (CKD) 51 (>60 ml/min/1.73 sqM); Albumin 2.6 g/dL (3.5-5.0); Alkaline Phosphatase 99 U/L (38-126); Anion Gap 8 mmol/L; Blood Urea Nitrogen 31 mg/dL (9-20); Calcium 7.9 mg/dL (8.4-10.2); Carbon Dioxide 21 mmol/L (22-30); Chloride 98 mmol/L (98-107); Glucose 175 mg/dL (74-99); Non-African American GFR(CKD) 44 (>60 ml/min/1.73 sqM); Potassium 3.9 mmol/L (3.5-5.1); Sodium 127 mmol/L (137-145); Total Bilirubin 2.1 mg/dL (0.2-1.3); Total Protein 6.2 g/dL (6.3-8.2)
[2023-07-21 05:51] LABS: Creatine Kinase 1105 U/L (55-170)
[2023-07-21] MEDS: SODIUM CHLORIDE 0.9% 500 ML 500 ML IV ONE (06:15)
[2023-07-21] MEDS ORDERED: NALOXONE 0.4 MG/ML 1 ML VIAL IV PRN (08:06)
[2023-07-21] MEDS ORDERED: ONDANSETRON 4 MG/2 ML VIAL IVP PRN (08:14)
[2023-07-21] MEDS: SODIUM CHLORIDE 0.9% 1,000 ML IV SCH (08:26)
--- NOTE | 2023-07-21 08:57 | CT ---
EXAMINATION TYPE: CT ChestAbdPelvis w con DATE OF EXAM: 07/21/2023 INDICATION: back pain, rhabdo, anemia COMPARISON: 810.2 CT DLP: 2721.4 mGycm CONTRAST: Performed without Oral Contrast and with IV Contrast, patient injected with the mL of Isovue 300. TECHNIQUE: Axial images at 5 mm thick sections. Reconstructed images in the coronal plane. Delayed images through the kidneys. FINDINGS: CT CHEST: Portion of the thyroid visualized is normal. No suspicious lung nodules or focal infiltrates are present. Shotty lymphadenopathy is present. No enlarged mediastinal adenopathy evident The ascending aorta diameter at the level of the main pulmonary artery is 4.3 cm. The main pulmonary artery diameter at the bifurcation is 3.[address] ABDOMEN: Liver: Normal Spleen: Normal Pancreas: Atrophic Adrenal glands: The adrenal glands are normal. Gallbladder: Normal Kidneys: No masses are evident. No hydronephrosis is present. No cysts are present. Delayed images were obtained through the kidneys, which remain unremarkable. Aorta: Vascular calcification is within the aorta. Inferior vena cava: Normal. CT PELVIS: Loops of bowel within the abdomen and pelvis are normal. There is a large fecal bolus of the rectum. No suspicious dilated loops of bowel are evident. There are loops of bowel which are incompletely distended or lack oral contrast limiting their evaluation. Appendix: Not identified. No dilated tubular structure or inflammatory changes evident. Urinary bladder: Normal. Genitourinary structures: Prostate is normal. Osseous structures: No suspicious lytic or sclerotic lesions. Endplate changes are evident L2-L3. Some residual disc bulge may be present spinal canal narrowing. S uspicious erosions to suggest acute osteomyelitis not clearly evident. Correlate with location of the patient's back pain. Low-grade discitis could be within the differential. IMPRESSION: 1. Large fecal bolus of the rectum. Correlate for fecal impaction. No suspicious changes to suggest o bstruction. 2. Endplate changes L2-L3, an interval change from 2021. Consider MRI for additional evaluation.
--- NOTE | 2023-07-21 09:15 | CT ---
EXAMINATION TYPE: CT thor lumbar spine w con DATE OF EXAM: 07/21/2023 COMPARISON: 06/01/2023, 10/05/2021 HISTORY: back pain, rhabdo, anemia CT DLP: 2721.4 mGycm Automated exposure control for dose reduction was used. Contrast: None Technique: Axial images 3 mm thick sections. Reconstructed images in the coronal and sagittal plane. FINDINGS: At the L2-3 level there is irregular loss of the disc heights.. When compared with 06/01/2023, this noemi ears progressive. Discitis should be considered. MRI with contrast is recommended for additional work up. Lower cervical spine: Degenerative changes and uncovertebral is present with foraminal narrowing. No spinal canal stenosis is present. Disc heights appear preserved. Vertebral body heights are preserved . Alignment is normal. Thoracic spine: Vertebral body heights are preserved. Disc heights are preserved. No focal disc herni ation or significant disc bulge is evident. No spinal canal stenosis is present. Lumbar spine: L2-3 as discussed above suspicious for acute discitis. Residual disc bulging appears to be present a t the L2-3 level has moderate anterior thecal sac compression. AP spinal canal stenosis is not identi fied. Moderate Left foraminal stenosis and severe right foraminal stenosis likely present. Mild disc bulge is present L3-4 mild to moderate anterior thecal sac compression. Spinal canal stenos is. Posterior to the superior endplate of L4. While disc bulge at L4-5 has anterior thecal sac flatte danni without stenosis. Neural foramen appear patent. IMPRESSION: 1. PROGRESSIVE LOSS OF ENDPLATES AT L2-L3 SUGGESTED FOR DISCITIS. ADDITIONAL WORKUP WITH MRI LUMBAR S PINE WITH CONTRAST IS RECOMMENDED. 2. NO SUSPICIOUS ACUTE CHANGES TO THE REMAINING PORTIONS OF THE VISUALIZED AXIAL SPINE.
[2023-07-21] MEDS ORDERED: NITROGLYCERIN SL TABS 0.4 MG TAB SUBLINGUAL PRN (10:39)
[2023-07-21 11:51] LABS: Glucose,Whole Blood 160 mg/dL (70-110)
[2023-07-21] MEDS: APIXABAN 5 MG TAB PO SCH (12:47)
[2023-07-21] MEDS: HYDROcodone/APAP 7.5-325MG 1 EACH TAB PO PRN ×2 (12:47→18:43)
--- NOTE | 2023-07-21 13:23 | P.HPIM ---
History of Present Illness H&P Date: 07/21/23 History of present illness; patient is a 72-year-old gentleman with past medical history significant for back pain, aortic stenosis s/p TAVR, coronary artery disease, atrial fibrillation who presented to the ER for back pain. Patient has history of back pain since April and has received steroid injections and is on chronic pain medications for his back pain. Patient stated that he went to bed last night and and woke up with worsening back pain. There was no complaint of fever or chills. There was no complaint of nausea, vomiting abdominal pain. Denies any chest pain or shortness of breath. Denies any weakness of any extremity. There is no complaint of loss of fecal or urine control. Because of the worsening back pain, patient came to the ER Initial lab work done in the ER showed WBC 8.9, hemoglobin 9.4, platelet count 156, sodium 127, potassium 3.9, BUN 31, creatinine 1.57, glucose 175, calcium 7.9, bilirubin 2.1, AST 61, creatinine kinase 02/27/[address] chest, abdominal pelvis done showed large fecal bolus of the rectum no suspicious change for obstruction. Endplate changes at L2-L3 CT lumbar and thoracic spine done showed progressive loss of endplates at L2-L3 suggestive for discitis Patient admitted to internal medicine service REVIEW OF SYSTEMS: CONSTITUTIONAL: No fever, no malaise, no fatigue. HEENT: No recent visual problems or hearing problems. Denied any sore throat. CARDIOVASCULAR: No chest pain, orthopnea, PND, no palpitations, no syncope. PULMONARY: No shortness of breath, no cough, no hemoptysis. GASTROINTESTINAL: No diarrhea, no nausea, no vomiting, no abdominal pain. NEUROLOGICAL: No headaches, no weakness, no numbness. HEMATOLOGICAL: Denies any bleeding or petechiae. GENITOURINARY: Denies any burning micturition, frequency, or urgency. MUSCULOSKELETAL/RHEUMATOLOGICAL: As mentioned above ENDOCRINE: Denies any polyuria or polydipsia. The rest of the 14-point review of systems is negative. PHYSICAL EXAMINATION: GENERAL: The patient is alert and oriented x3, not in any acute distress. Well developed, well nourished. HEENT: Pupils are round and equally reacting to light. EOMI. No scleral icterus. No conjunctival pallor. Normocephalic, atraumatic. No pharyngeal erythema. No thyromegaly. CARDIOVASCULAR: S1 and S2 present. No murmurs, rubs, or gallops. PULMONARY: Chest is clear to auscultation, no wheezing or crackles. ABDOMEN: Soft, nontender, nondistended, normoactive bowel sounds. No palpable organomegaly. MUSCULOSKELETAL: No joint swelling or deformity. EXTREMITIES: No cyanosis, clubbing, or pedal edema. NEUROLOGICAL: Gross neurological examination did not reveal any focal deficits. SKIN: No rashes. Assessment and plan Acute on chronic back pain L2-L3 discitis Mild Rhabdomyolysis History of aortic valve replacement Paroxysmal atrial fibrillation History of coronary disease s/p PCI Hypertension hyperlipidemia Obstructive apnea Diabetes mellitus Monitor vital signs Monitor CBC Monitor CMP Continue telemetry monitoring Ordered sed rate Ordered Pro-Kirill Ordered blood cultures Continue pain management Continue IV fluids Consult orthopedics Consult ID Labs and medication were reviewed.. Continue same treatment. Continue with symptomatic treatment. Resume home medication. Monitor labs and vitals. DVT and GI prophylaxis. Further recommendations as per clinical course of the patient Dictation was produced using [employer] dictation software. please excuse any grammatical, word or spelling errors. Past Medical History Past Medical History: Atrial Fibrillation, Coronary Artery Disease (CAD), Diabetes Mellitus, Hyperlipidemia, Hypertension, Liver Disease, Myocardial Infarction ([place]), Renal Disease, Skin Disorder, Sleep Apnea/CPAP/BIPAP Additional Past Medical History / Comment(s): Severe aortic stenosis, SOB w/exertion, uses CPAP, decreased kidney function stage 3, cirrhosis Last Myocardial Infarction Date:: april 2017 History of Any Multi-Drug Resistant Organisms: None Reported Past Surgical History: Heart Catheterization With Stent, Orthopedic Surgery, Pacemaker Additional Past Surgical History / Comment(s): rt ankle surgery with plate and 7 screws, I&D rectal cyst, pacemaker medtronic, pt states he has a total of 6 cardiac stents ([address] Maddox and 1 at [facility]) Past Anesthesia/Blood Transfusion Reactions: No Reported Reaction Date of Last Stent Placement:: 2022 Type of Cardiac Device: Permanent Pacemaker Device Placement Date:: Smoking Status: Never smoker - Past Family History Mother Family Medical History: Cancer Additional Family Medical History / Comment(s): breast, skin cancer Father Family Medical History: Coronary Artery Disease (CAD) Medications and Allergies Home Medications Medication Instructions Recorded Confirmed Type Atorvastatin [Lipitor] 80 mg PO HS #90 tab 05/09/17 07/21/23 Rx Metoprolol Succinate (ER) [Toprol 25 mg PO DAILY #90 tab.er.24h 05/09/17 07/21/23 Rx XL] Apixaban [Eliquis] 5 mg PO BID 07/13/21 07/21/23 History Montelukast [Singulair] 10 mg PO DAILY 07/13/21 07/21/23 History Potassium Chloride ER [K-Dur 20] 20 meq PO DAILY 07/13/21 07/21/23 History Clopidogrel [Plavix] 75 mg PO DAILY 08/11/22 07/21/23 History Nitroglycerin Sl Tabs [Nitrostat] 0.4 mg SUBLINGUAL Q5M PRN 08/11/22 07/21/23 History Baclofen [Lioresal] 10 mg PO BID 07/21/23 07/21/23 History Bumetanide [BUMEX] 2 mg PO DAILY 07/21/23 07/21/23 History HYDROcodone/APAP 7.5-325MG [[place] 1 tab PO Q12H PRN 07/21/23 07/21/23 History 7.5-325] tadalafiL 5 mg PO DAILY PRN 07/21/23 07/21/23 History Allergies Allergy/AdvReac Type Severity Reaction Status Date / Time cat dander Allergy Dyspnea Verified 07/21/23 08:54 dust Allergy Dyspnea Uncoded 09/20/22 06:53 Physical Exam Vitals: Vital Signs Temp Pulse Resp BP Pulse Ox 07/21/23 09:53 55 L 18 101/68 100 07/21/23 08:18 49 L 16 107/64 98 07/21/23 07:00 52 L 97/63 99 07/21/23 06:00 66 105/53 97 07/21/23 05:00 59 L 110/57 07/21/23 04:42 61 12 110/57 95 07/21/23 04:41 56 L 110/57 97 07/21/23 03:52 99.0 F 63 18 98/62 96 Intake and Output 07/20/23 07/21/23 07/21/23 22:59 06:59 14:59 Other: Weight 112.491 kg Results CBC & Chem 7: 07/21/23 05:27 07/21/23 05:27 Labs: Abnormal Lab Results - Last 24 Hours (Table) 07/21/23 07/21/23 07/21/23 Range/Units 05:08 05:27 05:27 RBC 2.96 L (4.30-5.90) m/uL Hgb 9.4 L (13.0-17.5) gm/dL Hct 27.6 L (39.0-53.0) % Neutrophils # 7.9 H (1.3-7.7) k/uL Lymphocytes # 0.5 L (1.0-4.8) k/uL Sodium 127 L (137-145) mmol/L Carbon Dioxide 21 L (22-30) mmol/L BUN 31 H (9-20) mg/dL Creatinine 1.57 H (0.66-1.25) mg/dL Glucose 175 H (74-99) mg/dL POC Glucose (mg/dL) 205 H (70-110) mg/dL Calcium 7.9 L (8.4-10.2) mg/dL Total Bilirubin 2.1 H (0.2-1.3) mg/dL AST 61 H (17-59) U/L Creatine Kinase 1105 H* (55-170) U/L C-Reactive Protein (<1.0) mg/dL Total Protein 6.2 L (6.3-8.2) g/dL Albumin 2.6 L (3.5-5.0) g/dL 07/21/23 Range/Units 08:56 RBC (4.30-5.90) m/uL Hgb (13.0-17.5) gm/dL Hct (39.0-53.0) % Neutrophils # (1.3-7.7) k/uL Lymphocytes # (1.0-4.8) k/uL Sodium (137-145) mmol/L Carbon Dioxide (22-30) mmol/L BUN (9-20) mg/dL Creatinine (0.66-1.25) mg/dL Glucose (74-99) mg/dL POC Glucose (mg/dL) (70-110) mg/dL Calcium (8.4-10.2) mg/dL Total Bilirubin (0.2-1.3) mg/dL AST (17-59) U/L Creatine Kinase (55-170) U/L C-Reactive Protein 6.9 H (<1.0) mg/dL Total Protein (6.3-8.2) g/dL Albumin (3.5-5.0) g/dL
[2023-07-21] MEDS: BACLOFEN 10 MG TAB PO SCH (14:14)
[2023-07-21 17:00] LABS: Glucose,Whole Blood 141 mg/dL (70-110)
[2023-07-21 20:31] LABS: Glucose,Whole Blood 117 mg/dL (70-110)
[2023-07-21 20:56] LABS: Appearance,Urine Clear (Clear); Bilirubin,Urine Negative (Negative); Blood,Urine Trace (Negative); Color,Urine Colorless; Glucose,Urine (UA) Negative (Negative); Hyaline Casts,Urine 1 /lpf (0-2); Ketones,Urine Negative (Negative); Leukocyte Esterase,Urine Negative (Negative); Mucus,Urine Rare /hpf; Nitrite,Urine Negative (Negative); Protein,Urine Negative (Negative); RBC,Urine <1 /hpf (0-5); Specific Gravity,Urine 1.009 (1.001-1.035); Urobilinogen,Urine <2.0 mg/dL (<2.0); WBC,Urine 1 /hpf (0-5)
[2023-07-21] MEDS ORDERED: BACLOFEN 10 MG TAB PO SCH (21:00)
--- NOTE | 2023-07-21 21:47 | P.CONS ---
History of Present Illness - Reason for Consult Consult date: 07/21/23 - History of Present Illness Patient is a 72-year-old male with a past medical history significant for coronary artery disease diabetes mellitus hypertension hyperlipidemia [place] sleep apnea chronic back pain and this patient apparently did have 2 steroid injection to his back and has been on chronic pain medication presenting to the hospital with worsening lower back pain with acute worsening the night before pr esentation to the hospital patient denies any history of any trauma has been complaining of pain to be sharp moderate to severe intensity without radiation denies any weakness to the leg and no bowel or bladder problem Patient denies high-grade fever or any chills denies he did have a low-grade fever of 99 F on presentation to the hospital patient was not tachycardic or hypotensive patient did have a white count of 8.9 BUN and creatinine has been mildly elevated with AST is mildly elevated urine is negative patient did have a thoracic and lumbar spine CT which was reported as progressive loss of endplate at L2-L3 suggestive for discitis no suspicious acute changes to the remaining portion of the visualized spine that has prompted this consultation Past Medical History Past Medical History: Atrial Fibrillation, Coronary Artery Disease (CAD), Diabe maged Mellitus, Hyperlipidemia, Hypertension, Liver Disease, Myocardial Infarction ([place]), Renal Disease, Skin Disorder, Sleep Apnea/CPAP/BIPAP Additional Past Medical History / Comment(s): Severe aortic stenosis, SOB w/exertion, uses CPAP, decreased kidney function stage 3, cirrhosis Last Myocardial Infarction Date:: april 2017 History of Any Multi-Drug Resistant Organisms: None Reported Past Surgical History: Heart Catheterization With Stent, Orthopedic Surgery, Pacemaker Additional Past Surgical History / Comment(s): rt ankle surgery with plate and 7 screws, I&D rectal cyst, pacemaker medtronic, pt states he has a total of 6 cardiac stents ([address] Maddox and 1 at [facility]) Past Anesthesia/Blood Transfusion Reactions: No Reported Reaction Date of Last Stent Placement:: 2022 Type of Cardiac Device: Permanent Pacemaker Device Placement Date:: Smoking Status: Never smoker - Past Family History Mother Family Medical History: Cancer Additional Family Medical History / Comment(s): breast, skin cancer Father Family Medical History: Coronary Artery Disease (CAD) Medications and Allergies Home Medications Medication Instructions Recorded Confirmed Type Atorvastatin [Lipitor] 80 mg PO HS #90 tab 05/09/17 07/21/23 Rx Metoprolol Succinate (ER) [Toprol 25 mg PO DAILY #90 tab.er.24h 05/09/17 07/21/23 Rx XL] Apixaban [Eliquis] 5 mg PO BID 07/13/21 07/21/23 History Montelukast [Singulair] 10 mg PO DAILY 07/13/21 07/21/23 History Potassium Chloride ER [K-Dur 20] 20 meq PO DAILY 07/13/21 07/21/23 History Clopidogrel [Plavix] 75 mg PO DAILY 08/11/22 07/21/23 History Nitroglycerin Sl Tabs [Nitrostat] 0.4 mg SUBLINGUAL Q5M PRN 08/11/22 07/21/23 History Baclofen [Lioresal] 10 mg PO BID 07/21/23 07/21/23 History Bumetanide [BUMEX] 2 mg PO DAILY 07/21/23 07/21/23 History HYDROcodone/APAP 7.5-325MG [[place] 1 tab PO Q12H PRN 07/21/23 07/21/23 History 7.5-325] tadalafiL 5 mg PO DAILY PRN 07/21/23 07/21/23 History Allergies Allergy/AdvReac Type Severity Reaction Status Date / Time cat dander Allergy Dyspnea Verified 07/21/23 08:54 dust Allergy Dyspnea Uncoded 09/20/22 06:53 Physical Exam Vitals: Vital Signs Temp Pulse Resp BP Pulse Ox 07/21/23 09:53 55 L 18 101/68 100 07/21/23 08:18 49 L 16 107/64 98 07/21/23 07:00 52 L 97/63 99 07/21/23 06:00 66 105/53 97 07/21/23 05:00 59 L 110/57 07/21/23 04:42 61 12 110/57 95 07/21/23 04:41 56 L 110/57 97 07/21/23 03:52 99.0 F 63 18 98/62 96 Intake and Output 07/20/23 07/21/23 07/21/23 22:59 06:59 14:59 Other: Weight 112.491 kg Results CBC & Chem 7: 07/21/23 05:27 07/21/23 05:27 Labs: Abnormal Lab Results - Last 24 Hours (Table) 07/21/23 07/21/23 07/21/23 Range/Units 05:08 05:27 05:27 RBC 2.96 L (4.30-5.90) m/uL Hgb 9.4 L (13.0-17.5) gm/dL Hct 27.6 L (39.0-53.0) % Neutrophils # 7.9 H (1.3-7.7) k/uL Lymphocytes # 0.5 L (1.0-4.8) k/uL Sodium 127 L (137-145) mmol/L Carbon Dioxide 21 L (22-30) mmol/L BUN 31 H (9-20) mg/dL Creatinine 1.57 H (0.66-1.25) mg/dL Glucose 175 H (74-99) mg/dL POC Glucose (mg/dL) 205 H (70-110) mg/dL Calcium 7.9 L (8.4-10.2) mg/dL Total Bilirubin 2.1 H (0.2-1.3) mg/dL AST 61 H (17-59) U/L Creatine Kinase 1105 H* (55-170) U/L C-Reactive Protein (<1.0) mg/dL Total Protein 6.2 L (6.3-8.2) g/dL Albumin 2.6 L (3.5-5.0) g/dL 07/21/23 Range/Units 08:56 RBC (4.30-5.90) m/uL Hgb (13.0-17.5) gm/dL Hct (39.0-53.0) % Neutrophils # (1.3-7.7) k/uL Lymphocytes # (1.0-4.8) k/uL Sodium (137-145) mmol/L Carbon Dioxide (22-30) mmol/L BUN (9-20) mg/dL Creatinine (0.66-1.25) mg/dL Glucose (74-99) mg/dL POC Glucose (mg/dL) (70-110) mg/dL Calcium (8.4-10.2) mg/dL Total Bilirubin (0.2-1.3) mg/dL AST (17-59) U/L Creatine Kinase (55-170) U/L C-Reactive Protein 6.9 H (<1.0) mg/dL Total Protein (6.3-8.2) g/dL Albumin (3.5-5.0) g/dL Assessment and Plan Plan: 1patient presented to hospital with worsening lower back pain this patient who did have a chronic history of lower back pain also with a history of injection with evidence of abnormal CT suggestive of L2-3 endplate destruction concerning for discitis however the patient is not running any fever did not have any elevated white count with a question of worsening osteoarthritic changes versus discitis 2-patient will benefit from MRI of the lumbosacral spine with contrast when his kidney function improved 3-we will check a blood culture CRP and sed rate 4-await spine surgery valuation to see the need for any surgical intervention or aspiration of the lumbar spine area through IR we would like to confirm the diagnosis before starting the patient on an antibiotic as the patient currently does not look toxic We will follow on clinical condition and cultures to further adjust medication if needed Thank you for this consultation we will follow the patient along with you Dictation was produced using [employer] dictation software. please excuse any grammatical, word or spelling errors. Time with Patient: Less than 30
[2023-07-21] MEDS: CLOTRIMAZOLE 1% CREAM 30 GM TUBE TOPICAL SCH (22:34)
[2023-07-22 06:12] LABS: Glucose,Whole Blood 118 mg/dL (70-110)
[2023-07-22] MEDS: POTASSIUM CHLORIDE ER 20 MEQ TAB.ER PO SCH (08:45)
[2023-07-22] MEDS: CLOPIDOGREL 75 MG TAB PO SCH (08:45)
[2023-07-22] MEDS: MONTELUKAST 10 MG TAB PO SCH (08:45)
[2023-07-22] MEDS: METOPROLOL SUCCINATE (ER) 25 MG TAB.ER.24H PO SCH (08:47)
[2023-07-22 09:37] LABS: Basophils # (A) 0.02 X 10*3/uL (0.00-0.10); Basophils % (A) 0.4 %; Eosinophils # (A) 0.06 X 10*3/uL (0.04-0.35); Eosinophils % (A) 1.2 %; HGB 8.9 g/dL (13.0-17.0); Lymphocytes # (A) 0.43 X 10*3/uL (0.90-5.00); Lymphocytes % (A) 8.8 %; MCH 30.9 pg (27.0-32.0); MCV 93.8 FL (80.0-97.0); Mean Platelet Volume 9.6 FL (9.5-12.2); Monocytes # (A) 0.29 X 10*3/uL (0.20-1.00); Monocytes % (A) 5.9 %; NRBC Per 100 WBC 0 X 10*3/uL (0.00-0.01); Neutrophils # (A) 4.08 X 10*3/uL (1.80-7.70); Neutrophils % (A) 83.1 %; Platelet Count 127 X 10*3/uL (140-440); RBC 2.88 X 10*6/uL (4.40-5.60); RDW 15.2 % (11.5-14.5); WBC 4.91 X 10*3/uL (4.50-10.00)
[2023-07-22 10:30] LABS: Erythrocyte Sedimentation Rate 18 mm/Hr (0-20)
[2023-07-22 10:49] LABS: ALT 41 U/L (10-49); AST 149 U/L (14-35); Alkaline Phosphatase 84 U/L (41-126); Blood Urea Nitrogen 21.8 mg/dL (9.0-27.0); Carbon Dioxide 23.9 mmol/L (21.6-31.8); Chloride 99 mmol/L (96-109); Glucose 115 mg/dL (70-110); Potassium 3.9 mmol/L (3.5-5.5); Sodium 133 mmol/L (135-145)
[2023-07-22 10:50] LABS: Albumin 2.7 g/dL (3.8-4.9); Albumin/Globulin Ratio 0.87 Ratio (1.60-3.17); Globulin 3.1 g/dL (1.6-3.3); Total Bilirubin 1.3 mg/dL (0.3-1.2); Total Protein 5.8 g/dL (6.2-8.2)
--- NOTE | 2023-07-22 11:05 | P.CNOR ---
History of Present Illness - [facility] Consult date: 07/22/23 Consult reason: low back pain (Acute on chronic low back pain.) History of present illness: This is a 72-year-old male admitted through the emergency department with acute on chronic low back pain. The patient states that he does have history of low back issues and has had 2 steroid injections per his primary care physician. He states that over the past week he has had increase in pain and low back spasm. He states that he did lift something heavy a few days prior to his admission which worsened his symptoms. He states that he has had night sweats for the past week or so to the point where his sheets are drenched in sweat at least once a night. He has no documented fever. He reports no pain in his legs. He states that he is able to ambulate but is having increased pain with ambulation. The patient is currently afebrile. White blood cell count is 4.91. CRP is slightly elevated at 6. Past Medical History Past Medical History: Atrial Fibrillation, Coronary Artery Disease (CAD), Diabetes Mellitus, Hyperlipidemia, Hypertension, Liver Disease, Myocardial Infarction ([place]), Renal Disease, Skin Disorder, Sleep Apnea/CPAP/BIPAP Additional Past Medical History / Comment(s): Severe aortic stenosis, SOB w/exertion, uses CPAP, decreased kidney function stage 3, cirrhosis Last Myocardial Infarction Date:: april 2017 History of Any Multi-Drug Resistant Organisms: None Reported Past Surgical History: Heart Catheterization With Stent, Orthopedic Surgery, Pac emaker Additional Past Surgical History / Comment(s): rt ankle surgery with plate and 7 screws, I&D rectal cyst, pacemaker medtronic, pt states he has a total of 6 cardiac stents ([address] Maddox and 1 at [facility]) Past Anesthesia/Blood Transfusion Reactions: No Reported Reaction Date of Last Stent Placement:: 2022 Type of Cardiac Device: Permanent Pacemaker Device Placement Date:: UN Smoking Status: Never smoker - Past Family History Mother Family Medical History: Cancer Additional Family Medical History / Comment(s): breast, skin cancer Father Family Medical History: Coronary Artery Disease (CAD) Medications and Allergies Home Medications Medication Instructions Recorded Confirmed Type Atorvastatin [Lipitor] 80 mg PO HS #90 tab 05/09/17 07/21/23 Rx Metoprolol Succinate (ER) [Toprol 25 mg PO DAILY #90 tab.er.24h 05/09/17 07/21/23 Rx XL] Apixaban [Eliquis] 5 mg PO BID 07/13/21 07/21/23 History Montelukast [Singulair] 10 mg PO DAILY 07/13/21 07/21/23 History Potassium Chloride ER [K-Dur 20] 20 meq PO DAILY 07/13/21 07/21/23 History Clopidogrel [Plavix] 75 mg PO DAILY 08/11/22 07/21/23 History Nitroglycerin Sl Tabs [Nitrostat] 0.4 mg SUBLINGUAL Q5M PRN 08/11/22 07/21/23 History Baclofen [Lioresal] 10 mg PO BID 07/21/23 07/21/23 History Bumetanide [BUMEX] 2 mg PO DAILY 07/21/23 07/21/23 History HYDROcodone/APAP 7.5-325MG [[place] 1 tab PO Q12H PRN 07/21/23 07/21/23 History 7.5-325] tadalafiL 5 mg PO DAILY PRN 07/21/23 07/21/23 History Allergies Allergy/AdvReac Type Severity Reaction Status Date / Time cat dander Allergy Dyspnea Verified 07/21/23 08:54 dust Allergy Dyspnea Uncoded 09/20/22 06:53 Physical Examination Osteopathic Statement: *. No significant issues noted on an osteopathic structural exam other than those noted in the History and Physical/Consult. This is a pleasant 72-year-old male in no acute distress. He is alert and oriented x 3. He is having a low back spasm during our evaluation and is in pretty severe pain. He is unable to roll in bed for me. Palpation of the thoracic and lumbar spine reveals no current tenderness along male spinous processes. There is slight right-sided lumbar paraspinal musculature tenderness. There is active spasm. Exam of the lower extremities reveals full foot and ankle motion. He has diffic ulty raising each leg off the bed independently secondary to pain. He can perceive fine touch to the feet and toes. Neurovascular status to the lower extremities is grossly intact. Results CT scan of the thoracic and lumbar spine reveal mild degenerative changes throughout. There is some bony erosion to the inferior endplate of L2 and superior endplate of L3. There are no acute fractures noted. - Labs Labs: Abnormal Lab Results - Last 24 Hours (Table) 07/21/23 07/21/23 07/21/23 Range/Units 08:56 11:48 16:58 RBC (4.40-5.60) X 10*6/uL Hgb (13.0-17.0) g/dL Hct (39.6-50.0) % RDW (11.5-14.5) % Plt Count (140-440) X 10*3/uL Lymphocytes # (0.90-5.00) X 10*3/uL Sodium (135-145) mmol/L BUN/Creatinine Ratio (12.00-20.00) Ratio Glucose (70-110) mg/dL POC Glucose (mg/dL) 160 H 141 H (70-110) mg/dL Calcium (8.7-10.3) mg/dL Total Bilirubin (0.3-1.2) mg/dL AST (14-35) U/L C-Reactive Protein (0.00-0.80) mg/dL Total Protein (6.2-8.2) g/dL Albumin (3.8-4.9) g/dL Albumin/Globulin Ratio (1.60-3.17) Ratio Procalcitonin 1.00 H (0.02-0.09) ng/mL Urine Blood (Negative) Urine Mucus (None) /hpf 07/21/23 07/21/23 07/22/23 Range/Units 20:28 20:45 06:08 RBC (4.40-5.60) X 10*6/uL Hgb (13.0-17.0) g/dL Hct (39.6-50.0) % RDW (11.5-14.5) % Plt Count (140-440) X 10*3/uL Lymphocytes # (0.90-5.00) X 10*3/uL Sodium (135-145) mmol/L BUN/Creatinine Ratio (12.00-20.00) Ratio Glucose (70-110) mg/dL POC Glucose (mg/dL) 117 H 118 H (70-110) mg/dL Calcium (8.7-10.3) mg/dL Total Bilirubin (0.3-1.2) mg/dL AST (14-35) U/L C-Reactive Protein (0.00-0.80) mg/dL Total Protein (6.2-8.2) g/dL Albumin (3.8-4.9) g/dL Albumin/Globulin Ratio (1.60-3.17) Ratio Procalcitonin (0.02-0.09) ng/mL Urine Blood Trace H (Negative) Urine Mucus Rare H (None) /hpf 07/22/23 07/22/23 Range/Units 07:02 07:02 RBC 2.88 L (4.40-5.60) X 10*6/uL Hgb 8.9 L (13.0-17.0) g/dL Hct 27.0 L (39.6-50.0) % RDW 15.2 H (11.5-14.5) % Plt Count 127 L (140-440) X 10*3/uL Lymphocytes # 0.43 L (0.90-5.00) X 10*3/uL Sodium 133 L (135-145) mmol/L BUN/Creatinine Ratio 21.80 H (12.00-20.00) Ratio Glucose 115 H (70-110) mg/dL POC Glucose (mg/dL) (70-110) mg/dL Calcium 8.0 L (8.7-10.3) mg/dL Total Bilirubin 1.3 H (0.3-1.2) mg/dL AST 149 H (14-35) U/L C-Reactive Protein 9.70 H (0.00-0.80) mg/dL Total Protein 5.8 L (6.2-8.2) g/dL Albumin 2.7 L (3.8-4.9) g/dL Albumin/Globulin Ratio 0.87 L (1.60-3.17) Ratio Procalcitonin (0.02-0.09) ng/mL Urine Blood (Negative) Urine Mucus (None) /hpf H & H 07/21/23 07/22/23 Range/Units 05:27 07:02 Hgb 9.4 L 8.9 L (13.0-17.5) gm/dL Hct 27.6 L 27.0 L (39.0-53.0) % Result Diagrams: 07/22/23 07:02 07/22/23 07:02 Assessment and Plan (1) Low back pain Current Visit: Yes Status: Acute Code(s): M54.50 - LOW BACK PAIN, UNSPECIFIED SNOMED Code(s): 317608327 (2) Acute exacerbation of chronic low back pain Current Visit: Yes Status: Acute Code(s): M54.50 - LOW BACK PAIN, UNSPECIFIED; G89.29 - OTHER CHRONIC PAIN SNOMED Code(s): 919715849 (3) Rhabdomyolysis Current Visit: Yes Status: Acute Code(s): M62.82 - RHABDOMYOLYSIS SNOMED Code(s): 465445017 Plan: The clinical and radiographic findings are discussed with the patient and are reviewed with Dr. Barlow. It is recommended the patient have an MRI to rule out discitis to the L2-3 disc. We will hopefully get the MRI today and be able to make further recommendations. Continue current pain management. Patient may ambulate to the bathroom as needed. THe imaging, notes and labwork are reviewed. Agree with order for MRI.
[2023-07-22 11:36] LABS: Glucose,Whole Blood 110 mg/dL (70-110)
--- NOTE | 2023-07-22 13:00 | P.PN ---
Subjective Progress Note Date: 07/22/23 patient is a 72-year-old gentleman with past medical history significant for back pain, aortic stenosis s/p TAVR, coronary artery disease, atrial fibrillation who presented to the ER for back pain. Patient has history of back pain since April and has received steroid injections and is on chronic pain med ications for his back pain. Patient stated that he went to bed last night and and woke up with worsening back pain. There was no complaint of fever or chills. There was no complaint of nausea, vomiting abdominal pain. Denies any chest pain or shortness of breath. Denies any weakness of any extremity. There is no complaint of loss of fecal or urine control. Because of the worsening back pain, patient came to the ER Initial lab work done in the ER showed WBC 8.9, hemoglobin 9.4, platelet count 156, sodium 127, potassium 3.9, BUN 31, creatinine 1.57, glucose 175, calcium 7.9, bilirubin 2.1, AST 61, creatinine kinase 02/27/[address] chest, abdominal pelvis done showed large fecal bolus of the rectum no suspicious change for obstruction. Endplate changes at L2-L3 CT lumbar and thoracic spine done showed progressive loss of endplates at L2-L3 suggestive for discitis Patient admitted to internal medicine service 07/21. Patient seen and examined. Still complaining of back pain. Denies any fever or chills. REVIEW OF SYSTEMS: CONSTITUTIONAL: No fever, no malaise,. CARDIOVASCULAR: No chest pain, no palpitations, no syncope. PULMONARY: No shortness of breath, no cough, GASTROINTESTINAL: No diarrhea, no nausea, no vomiting, no abdominal pain. NEUROLOGICAL: No headaches, no weakness, PHYSICAL EXAMINATION: GENERAL: The patient is alert and oriented x3, not in any acute distress. Well developed, well nourished. HEENT: Pupils are round and equally reacting to light. EOMI. No scleral icterus. No conjunctival pallor. Normocephalic, atraumatic. No pharyngeal erythema. No thyromegaly. CARDIOVASCULAR: S1 and S2 present. No murmurs, rubs, or gallops. PULMONARY: Chest is clear to auscultation, no wheezing or crackles. ABDOMEN: Soft, nontender, nondistended, normoactive bowel sounds. No palpable organomegaly. MUSCULOSKELETAL: No joint swelling or deformity. EXTREMITIES: No cyanosis, clubbing, or pedal edema. NEUROLOGICAL: Gross neurological examination did not reveal any focal deficits. SKIN: No rashes. Assessment and plan Acute on chronic back pain L2-L3 discitis Mild Rhabdomyolysis History of aortic valve replacement Paroxysmal atrial fibrillation History of coronary disease s/p PCI Hypertension hyperlipidemia Obstructive apnea Diabetes mellitus Monitor vital signs Monitor CBC Monitor CMP Continue telemetry monitoring Follow-up on blood cultures Continue pain management Continue IV fluids ID evaluated, recommended holding off on antibiotics at this time, want orthopedic surgery evaluation for surgical intervention versus IR guided drain age before deciding about antibiotics Orthopedic consulted Labs and medication were reviewed.. Continue same treatment. Continue with symptomatic treatment. Resume home medication. Monitor labs and vitals. DVT and GI prophylaxis. Further recommendations as per clinical course of the patient Dictation was produced using [employer] dictation software. please excuse any grammatical, word or spelling errors. Objective - Vital Signs Vital signs: Vital Signs Temp 98.5 F 07/22/23 07:09 Pulse 53 L 07/22/23 08:00 Resp 18 07/22/23 07:09 BP 96/58 07/22/23 07:09 Pulse Ox 99 07/22/23 07:09 FiO2 Intake & Output 07/21/23 07/22/23 07/22/23 18:59 06:59 18:59 Output Total 1020 Balance -1020 Weight 112.491 kg Output: Urine 1020 Other: Voiding Method Urinal Urinal # Voids 1 - Labs CBC & Chem 7: 07/22/23 07:02 07/22/23 07:02 Labs: Abnormal Lab Results - Last 24 Hours (Table) 07/21/23 07/21/23 07/21/23 Range/Units 08:56 11:48 16:58 RBC (4.40-5.60) X 10*6/uL Hgb (13.0-17.0) g/dL Hct (39.6-50.0) % RDW (11.5-14.5) % Plt Count (140-440) X 10*3/uL Lymphocytes # (0.90-5.00) X 10*3/uL Sodium (135-145) mmol/L BUN/Creatinine Ratio (12.00-20.00) Ratio Glucose (70-110) mg/dL POC Glucose (mg/dL) 160 H 141 H (70-110) mg/dL Calcium (8.7-10.3) mg/dL Total Bilirubin (0.3-1.2) mg/dL AST (14-35) U/L C-Reactive Protein (0.00-0.80) mg/dL Total Protein (6.2-8.2) g/dL Albumin (3.8-4.9) g/dL Albumin/Globulin Ratio (1.60-3.17) Ratio Procalcitonin 1.00 H (0.02-0.09) ng/mL Urine Blood (Negative) Urine Mucus (None) /hpf 07/21/23 07/21/23 07/22/23 Range/Units 20:28 20:45 06:08 RBC (4.40-5.60) X 10*6/uL Hgb (13.0-17.0) g/dL Hct (39.6-50.0) % RDW (11.5-14.5) % Plt Count (140-440) X 10*3/uL Lymphocytes # (0.90-5.00) X 10*3/uL Sodium (135-145) mmol/L BUN/Creatinine Ratio (12.00-20.00) Ratio Glucose (70-110) mg/dL POC Glucose (mg/dL) 117 H 118 H (70-110) mg/dL Calcium (8.7-10.3) mg/dL Total Bilirubin (0.3-1.2) mg/dL AST (14-35) U/L C-Reactive Protein (0.00-0.80) mg/dL Total Protein (6.2-8.2) g/dL Albumin (3.8-4.9) g/dL Albumin/Globulin Ratio (1.60-3.17) Ratio Procalcitonin (0.02-0.09) ng/mL Urine Blood Trace H (Negative) Urine Mucus Rare H (None) /hpf 07/22/23 07/22/23 Range/Units 07:02 07:02 RBC 2.88 L (4.40-5.60) X 10*6/uL Hgb 8.9 L (13.0-17.0) g/dL Hct 27.0 L (39.6-50.0) % RDW 15.2 H (11.5-14.5) % Plt Count 127 L (140-440) X 10*3/uL Lymphocytes # 0.43 L (0.90-5.00) X 10*3/uL Sodium 133 L (135-145) mmol/L BUN/Creatinine Ratio 21.80 H (12.00-20.00) Ratio Glucose 115 H (70-110) mg/dL POC Glucose (mg/dL) (70-110) mg/dL Calcium 8.0 L (8.7-10.3) mg/dL Total Bilirubin 1.3 H (0.3-1.2) mg/dL AST 149 H (14-35) U/L C-Reactive Protein 9.70 H (0.00-0.80) mg/dL Total Protein 5.8 L (6.2-8.2) g/dL Albumin 2.7 L (3.8-4.9) g/dL Albumin/Globulin Ratio 0.87 L (1.60-3.17) Ratio Procalcitonin (0.02-0.09) ng/mL Urine Blood (Negative) Urine Mucus (None) /hpf
[2023-07-22 16:41] LABS: Glucose,Whole Blood 123 mg/dL (70-110)
[2023-07-22 20:39] LABS: Glucose,Whole Blood 126 mg/dL (70-110)
[2023-07-23 05:53] LABS: Glucose,Whole Blood 98 mg/dL (70-110)
[2023-07-23 09:23] LABS: Basophils # (A) 0.02 X 10*3/uL (0.00-0.10); Basophils % (A) 0.5 %; Eosinophils # (A) 0.07 X 10*3/uL (0.04-0.35); Eosinophils % (A) 1.8 %; HCT 26.7 % (39.6-50.0); HGB 8.6 g/dL (13.0-17.0); Lymphocytes # (A) 0.59 X 10*3/uL (0.90-5.00); Lymphocytes % (A) 15.4 %; MCH 30.9 pg (27.0-32.0); MCHC 32.2 g/dL (32.0-37.0); Mean Platelet Volume 10.1 FL (9.5-12.2); Monocytes # (A) 0.26 X 10*3/uL (0.20-1.00); Monocytes % (A) 6.8 %; NRBC Per 100 WBC 0 X 10*3/uL (0.00-0.01); Neutrophils # (A) 2.86 X 10*3/uL (1.80-7.70); Neutrophils % (A) 74.7 %; Platelet Count 129 X 10*3/uL (140-440); RBC 2.78 X 10*6/uL (4.40-5.60); RDW 15.3 % (11.5-14.5); WBC 3.83 X 10*3/uL (4.50-10.00)
[2023-07-23 10:06] LABS: ALT 53 U/L (10-49); AST 145 U/L (14-35); Albumin 2.5 g/dL (3.8-4.9); Albumin/Globulin Ratio 0.81 Ratio (1.60-3.17); Alkaline Phosphatase 77 U/L (41-126); Blood Urea Nitrogen 19.9 mg/dL (9.0-27.0); Calcium 7.8 mg/dL (8.7-10.3); Carbon Dioxide 22.1 mmol/L (21.6-31.8); Chloride 101 mmol/L (96-109); Globulin 3.1 g/dL (1.6-3.3); Glucose 98 mg/dL (70-110); Sodium 133 mmol/L (135-145); Total Bilirubin 0.9 mg/dL (0.3-1.2); Total Protein 5.6 g/dL (6.2-8.2)
--- NOTE | 2023-07-23 10:36 | P.PN ---
Subjective Progress Note Date: 07/23/23 Principal diagnosis: Acute on chronic low back pain. Positive blood cultures, strep viridans. This is a 72-year-old male admitted through the emergency department with acute on chronic low back pain. The patient states that he does have history of low back issues and has had 2 steroid injections per his primary care physician. He states that over the past week he has had increase in pain and low back spasm. He states that he did lift something heavy a few days prior to his admission which worsened his symptoms. He states that he has had night sweats for the past week or so to the point where his sheets are drenched in sweat at least once a night. He has no documented fever. He reports no pain in his legs. He states that he is able to ambulate but is having increased pain with ambulation. The patient is currently afebrile. White blood cell count is 3.83 this morning. Hemoglobin 8.6. Platelets 129. The patient has been afebrile. The patient is unable to have an MRI secondary to his multiple cardiac stents and pacemaker. Objective - Vital Signs Vital signs: Vital Signs Temp 97.5 F L 07/23/23 07:54 Pulse 63 07/23/23 07:54 Resp 18 07/23/23 07:54 BP 110/54 07/23/23 07:54 Pulse Ox 92 L 07/23/23 07:54 FiO2 Intake & Output 07/22/23 07/23/23 07/23/23 18:59 06:59 18:59 Output Total 300 350 400 Balance -300 -350 -400 Output: Urine 300 350 400 Other: Voiding Method Urinal # Bowel Movements 0 - Exam This is a 72-year-old male in no acute distress. He is alert and oriented x 3. The patient is unable to roll to the side for examination of his low back. He has difficulty lifting each leg off the bed independently secondary to pain. He has full foot and ankle motion bilaterally. Neurovascular status to the lower extremities is grossly intact. - Labs CBC & Chem 7: 07/23/23 05:04 07/23/23 05:04 Labs: Abnormal Lab Results - Last 24 Hours (Table) 07/22/23 07/22/23 07/22/23 Range/Units 07:02 16:39 20:37 WBC (4.50-10.00) X 10*3/uL RBC (4.40-5.60) X 10*6/uL Hgb (13.0-17.0) g/dL Hct (39.6-50.0) % RDW (11.5-14.5) % Plt Count (140-440) X 10*3/uL Lymphocytes # (0.90-5.00) X 10*3/uL Sodium 133 L (135-145) mmol/L BUN/Creatinine Ratio 21.80 H (12.00-20.00) Ratio Glucose 115 H (70-110) mg/dL POC Glucose (mg/dL) 123 H 126 H (70-110) mg/dL Calcium 8.0 L (8.7-10.3) mg/dL Total Bilirubin 1.3 H (0.3-1.2) mg/dL AST 149 H (14-35) U/L ALT (10-49) U/L C-Reactive Protein 9.70 H (0.00-0.80) mg/dL Total Protein 5.8 L (6.2-8.2) g/dL Albumin 2.7 L (3.8-4.9) g/dL Albumin/Globulin Ratio 0.87 L (1.60-3.17) Ratio 07/23/23 07/23/23 Range/Units 05:04 05:04 WBC 3.83 L (4.50-10.00) X 10*3/uL RBC 2.78 L (4.40-5.60) X 10*6/uL Hgb 8.6 L (13.0-17.0) g/dL Hct 26.7 L (39.6-50.0) % RDW 15.3 H (11.5-14.5) % Plt Count 129 L (140-440) X 10*3/uL Lymphocytes # 0.59 L (0.90-5.00) X 10*3/uL Sodium 133 L (135-145) mmol/L BUN/Creatinine Ratio (12.00-20.00) Ratio Glucose (70-110) mg/dL POC Glucose (mg/dL) (70-110) mg/dL Calcium 7.8 L (8.7-10.3) mg/dL Total Bilirubin (0.3-1.2) mg/dL AST 145 H (14-35) U/L ALT 53 H (10-49) U/L C-Reactive Protein (0.00-0.80) mg/dL Total Protein 5.6 L (6.2-8.2) g/dL Albumin 2.5 L (3.8-4.9) g/dL Albumin/Globulin Ratio 0.81 L (1.60-3.17) Ratio Microbiology - Last 24 Hours (Table) 07/21/23 10:56 Blood Culture Gram Stain - Preliminary Blood Blood Culture - Preliminary Streptococcus viridans group 07/21/23 10:56 Blood Culture Gram Stain - Preliminary Blood Blood Culture - Preliminary Streptococcus viridans group Molecular ID Assessment and Plan (1) Low back pain Current Visit: Yes Status: Acute Code(s): M54.50 - LOW BACK PAIN, UNSPECIFIED SNOMED Code(s): 413078100 (2) Acute exacerbation of chronic low back pain Current Visit: Yes Status: Acute Code(s): M54.50 - LOW BACK PAIN, UNSPECIFIED; G89.29 - OTHER CHRONIC PAIN SNOMED Code(s): 698488630 (3) Rhabdomyolysis Current Visit: Yes Status: Acute Code(s): M62.82 - RHABDOMYOLYSIS SNOMED Code(s): 501549054 Plan: The clinical and radiographic findings are discussed with the patient and are reviewed with Dr. Barlow. It is recommended the patient have an MRI to rule out discitis to the L2-3 disc, however the patient is unable to have an MRI. It is recommended he have a CT-guided aspiration of the L2-3 disc space to evaluate for possible abscess. A nuclear medicine white blood cell scan may be of benefit as well. We will defer orders to internal medicine or infectious disease. We will continue to follow and await results. I reviewed the imaging and the patient and the notes. I agree with the above dictation. Will follow him closely. He is unable to have an MRI here at [facility], but if he is able to have a compatible MRI with his pacemaker at an alternate location then we should consider transfer to that institution for imaging and definitive care.
[2023-07-23 12:07] LABS: Glucose,Whole Blood 129 mg/dL (70-110)
--- NOTE | 2023-07-23 14:31 | P.PN ---
Subjective Progress Note Date: 07/23/23 patient is a 72-year-old gentleman with past medical history significant for back pain, aortic stenosis s/p TAVR, coronary artery disease, atrial fibrillation who presented to the ER for back pain. Patient has history of back pain since April and has received steroid injections and is on chronic pain med ications for his back pain. Patient stated that he went to bed last night and and woke up with worsening back pain. There was no complaint of fever or chills. There was no complaint of nausea, vomiting abdominal pain. Denies any chest pain or shortness of breath. Denies any weakness of any extremity. There is no complaint of loss of fecal or urine control. Because of the worsening back pain, patient came to the ER Initial lab work done in the ER showed WBC 8.9, hemoglobin 9.4, platelet count 156, sodium 127, potassium 3.9, BUN 31, creatinine 1.57, glucose 175, calcium 7.9, bilirubin 2.1, AST 61, creatinine kinase 02/27/[address] chest, abdominal pelvis done showed large fecal bolus of the rectum no suspicious change for obstruction. Endplate changes at L2-L3 CT lumbar and thoracic spine done showed progressive loss of endplates at L2-L3 suggestive for discitis Patient admitted to internal medicine service 07/21. Patient seen and examined. Still complaining of back pain. Denies any fever or chills. 07/22. Patient seen and examined. Blood culture positive for Streptococcus viridians, started on IV antibiotics. Still has back pain REVIEW OF SYSTEMS: CONSTITUTIONAL: No fever, no malaise,. CARDIOVASCULAR: No chest pain, no palpitations, no syncope. PULMONARY: No shortness of breath, no cough, GASTROINTESTINAL: No diarrhea, no nausea, no vomiting, no abdominal pain. NEUROLOGICAL: No headaches, no weakness, PHYSICAL EXAMINATION: GENERAL: The patient is alert and oriented x3, not in any acute distress. Well developed, well nourished. HEENT: Pupils are round and equally reacting to light. EOMI. No scleral icterus. No conjunctival pallor. Normocephalic, atraumatic. No pharyngeal erythema. No thyromegaly. CARDIOVASCULAR: S1 and S2 present. No murmurs, rubs, or gallops. PULMONARY: Chest is clear to auscultation, no wheezing or crackles. ABDOMEN: Soft, nontender, nondistended, normoactive bowel sounds. No palpable organomegaly. MUSCULOSKELETAL: No joint swelling or deformity. EXTREMITIES: No cyanosis, clubbing, or pedal edema. NEUROLOGICAL: Gross neurological examination did not reveal any focal deficits. SKIN: No rashes. Assessment and plan Streptococcus viridians bacteremia Acute on chronic back pain L2-L3 discitis Mild Rhabdomyolysis History of aortic valve replacement Paroxysmal atrial fibrillation History of coronary disease s/p PCI Hypertension hyperlipidemia Obstructive apnea Diabetes mellitus Monitor vital signs Monitor CBC Monitor CMP Continue telemetry monitoring Blood culture positive for Streptococcus viridians Started IV Rocephin Ordered 2D echo Continue pain management Continue IV fluids ID following Orthopedic following, not planning any surgical intervention, recommend CT- guided abscess drainage versus nuclear tagged WBC scan Labs and medication were reviewed.. Continue same treatment. Continue with symptomatic treatment. Resume home medication. Monitor labs and vitals. DVT and GI prophylaxis. Further recommendations as per clinical course of the patient Dictation was produced using [employer] dictation software. please excuse any grammatical, word or spelling errors. Objective - Vital Signs Vital signs: Vital Signs Temp 97.5 F L 07/23/23 07:54 Pulse 63 07/23/23 07:54 Resp 18 07/23/23 07:54 BP 110/54 07/23/23 07:54 Pulse Ox 92 L 07/23/23 07:54 FiO2 Intake & Output 07/22/23 07/23/23 07/23/23 18:59 06:59 18:59 Output Total 300 350 400 Balance -300 -350 -400 Output: Urine 300 350 400 Other: Voiding Method Urinal # Bowel Movements 0 - Labs CBC & Chem 7: 07/23/23 05:04 07/23/23 05:04 Labs: Abnormal Lab Results - Last 24 Hours (Table) 07/22/23 07/22/23 07/23/23 Range/Units 16:39 20:37 05:04 WBC 3.83 L (4.50-10.00) X 10*3/uL RBC 2.78 L (4.40-5.60) X 10*6/uL Hgb 8.6 L (13.0-17.0) g/dL Hct 26.7 L (39.6-50.0) % RDW 15.3 H (11.5-14.5) % Plt Count 129 L (140-440) X 10*3/uL Lymphocytes # 0.59 L (0.90-5.00) X 10*3/uL Sodium (135-145) mmol/L POC Glucose (mg/dL) 123 H 126 H (70-110) mg/dL Calcium (8.7-10.3) mg/dL AST (14-35) U/L ALT (10-49) U/L Total Protein (6.2-8.2) g/dL Albumin (3.8-4.9) g/dL Albumin/Globulin Ratio (1.60-3.17) Ratio 07/23/23 Range/Units 05:04 WBC (4.50-10.00) X 10*3/uL RBC (4.40-5.60) X 10*6/uL Hgb (13.0-17.0) g/dL Hct (39.6-50.0) % RDW (11.5-14.5) % Plt Count (140-440) X 10*3/uL Lymphocytes # (0.90-5.00) X 10*3/uL Sodium 133 L (135-145) mmol/L POC Glucose (mg/dL) (70-110) mg/dL Calcium 7.8 L (8.7-10.3) mg/dL AST 145 H (14-35) U/L ALT 53 H (10-49) U/L Total Protein 5.6 L (6.2-8.2) g/dL Albumin 2.5 L (3.8-4.9) g/dL Albumin/Globulin Ratio 0.81 L (1.60-3.17) Ratio Microbiology - Last 24 Hours (Table) 07/21/23 10:56 Blood Culture Gram Stain - Preliminary Blood Blood Culture - Preliminary Streptococcus viridans group 07/21/23 10:56 Blood Culture Gram Stain - Preliminary Blood Blood Culture - Preliminary Streptococcus viridans group Molecular ID
[2023-07-23 16:35] LABS: Glucose,Whole Blood 111 mg/dL (70-110)
[2023-07-23 20:42] LABS: Glucose,Whole Blood 106 mg/dL (70-110)
[2023-07-24 06:20] LABS: Glucose,Whole Blood 94 mg/dL (70-110)
--- NOTE | 2023-07-24 07:24 | P.PN ---
Subjective Progress Note Date: 07/22/23 Principal diagnosis: Reason for follow-up is abnormal discitis and bacteremia watson is a 72-year-old male with a past medical history significant for coronary artery disease diabetes mellitus hypertension hyperlipidemia [place] sleep apnea chronic back pain and this patient apparently did have 2 steroid injection to his back and has been on chronic pain medication presenting to the hospital with worsening lower back pain, patient did have a abnormal CT concerning for L2-3 discitis with progressive loss of endplate and the patient blood cultures came back positive with strep viridans. On today's evaluation that is 07/22/2023, the patient continues to be afebrile, the patient is on 3 L nasal cannula oxygen and breathing comfortably, the Pt denies having any chest pain or cough, the patient denies having any abdominal pain no vomiting or any diarrhea has been reported by the nursing staff still complaining of back pain but no worsening. Patient white count is 4.91 sed rate is 18 creatinine is 1.0 blood cultures came back positive with Streptococcus Objective - Vital Signs Vital signs: Vital Signs Temp 98.5 F 07/22/23 07:09 Pulse 53 L 07/22/23 07:09 Resp 18 07/22/23 07:09 BP 96/58 07/22/23 07:09 Pulse Ox 99 07/22/23 07:09 FiO2 Intake & Output 07/21/23 07/22/23 07/22/23 18:59 06:59 18:59 Output Total 1020 Balance -1020 Weight 112.491 kg Output: Urine 1020 Other: Voiding Method Urinal # Voids 1 - Labs CBC & Chem 7: 07/23/23 05:04 07/23/23 05:04 Labs: Abnormal Lab Results - Last 24 Hours (Table) 07/21/23 07/21/23 07/21/23 Range/Units 08:56 08:56 11:48 POC Glucose (mg/dL) 160 H (70-110) mg/dL C-Reactive Protein 6.9 H (<1.0) mg/dL Procalcitonin 1.00 H (0.02-0.09) ng/mL Urine Blood (Negative) Urine Mucus (None) /hpf 07/21/23 07/21/23 07/21/23 Range/Units 16:58 20:28 20:45 POC Glucose (mg/dL) 141 H 117 H (70-110) mg/dL C-Reactive Protein (<1.0) mg/dL Procalcitonin (0.02-0.09) ng/mL Urine Blood Trace H (Negative) Urine Mucus Rare H (None) /hpf 07/22/23 Range/Units 06:08 POC Glucose (mg/dL) 118 H (70-110) mg/dL C-Reactive Protein (<1.0) mg/dL Procalcitonin (0.02-0.09) ng/mL Urine Blood (Negative) Urine Mucus (None) /hpf Assessment and Plan (1) Bacteremia Current Visit: Yes Status: Acute Code(s): R78.81 - BACTEREMIA SNOMED Code(s): 0115675 (2) Lumbar discitis Current Visit: Yes Status: Acute Code(s): M46.46 - DISCITIS, UNSPECIFIED, LUMBAR REGION SNOMED Code(s): 137396762 Plan: 1patient presented to hospital with worsening lower back pain this patient who did have a chronic history of lower back pain also with a history of injection with evidence of abnormal CT suggestive of L2-3 endplate destruction concerning for discitis however the patient is not running any fever did not have any elevated white count with a question of discitis 2-patient will benefit from MRI of the lumbosacral spine with contrast which has been ordered by orthopedics 3-patient did have a streptococcal bacteremia source likely discitis blood culture has been repeated patient was started on Rocephin and will monitor c linical course closely Dictation was produced using [employer] dictation software. please excuse any gra mmatical, word or spelling errors. Time with Patient: Greater than 30
--- NOTE | 2023-07-24 07:25 | P.PN ---
Subjective Progress Note Date: 07/23/23 Principal diagnosis: Reason for follow-up is abnormal discitis and bacteremia watson is a 72-year-old male with a past medical history significant for coronary artery disease diabetes mellitus hypertension hyperlipidemia [place] sleep apnea chronic back pain and this patient apparently did have 2 steroid injection to his back and has been on chronic pain medication presenting to the hospital with worsening lower back pain, patient did have a abnormal CT concerning for L2-3 discitis with progressive loss of endplate and the patient blood cultures came back positive with strep viridans. On today's evaluation that is 07/23/2023, Patient is afebrile patient is currently on 3 L nasal cannula oxygen and denies having any shortness of breath, the patient denies any chest pain or cough, the patient denies any nausea vomiting did not have any abdominal pain and no diarrhea, patient complaining of back pain mostly with activity and some pressure bilateral groin area no weakness in the legs or bowel or bladder problem. Patient white count is 3.83 creatinine is 1.0 Objective - Vital Signs Vital signs: Vital Signs Temp 97.4 F L 07/23/23 14:20 Pulse 50 L 07/23/23 14:20 Resp 18 07/23/23 14:20 BP 98/62 07/23/23 14:20 Pulse Ox 98 07/23/23 14:20 FiO2 Intake & Output 07/22/23 07/23/23 07/23/23 18:59 06:59 18:59 Output Total 300 350 400 Balance -300 -350 -400 Output: Urine 300 350 400 Other: Voiding Method Urinal # Bowel Movements 0 - Exam GENERAL DESCRIPTION: An elderly male lying in bed in no distress RESPIRATORY SYSTEM: Unlabored breathing , decreased breath sounds at bases HEART: S1 S2 regular rate and rhythm , ABDOMEN: Soft , no tenderness EXTREMITIES: No edema feet - Labs CBC & Chem 7: 07/23/23 05:04 07/23/23 05:04 Labs: Abnormal Lab Results - Last 24 Hours (Table) 07/22/23 07/23/23 07/23/23 Range/Units 20:37 05:04 05:04 WBC 3.83 L (4.50-10.00) X 10*3/uL RBC 2.78 L (4.40-5.60) X 10*6/uL Hgb 8.6 L (13.0-17.0) g/dL Hct 26.7 L (39.6-50.0) % RDW 15.3 H (11.5-14.5) % Plt Count 129 L (140-440) X 10*3/uL Lymphocytes # 0.59 L (0.90-5.00) X 10*3/uL Sodium 133 L (135-145) mmol/L POC Glucose (mg/dL) 126 H (70-110) mg/dL Calcium 7.8 L (8.7-10.3) mg/dL AST 145 H (14-35) U/L ALT 53 H (10-49) U/L Total Protein 5.6 L (6.2-8.2) g/dL Albumin 2.5 L (3.8-4.9) g/dL Albumin/Globulin Ratio 0.81 L (1.60-3.17) Ratio 07/23/23 07/23/23 Range/Units 12:05 16:33 WBC (4.50-10.00) X 10*3/uL RBC (4.40-5.60) X 10*6/uL Hgb (13.0-17.0) g/dL Hct (39.6-50.0) % RDW (11.5-14.5) % Plt Count (140-440) X 10*3/uL Lymphocytes # (0.90-5.00) X 10*3/uL Sodium (135-145) mmol/L POC Glucose (mg/dL) 129 H 111 H (70-110) mg/dL Calcium (8.7-10.3) mg/dL AST (14-35) U/L ALT (10-49) U/L Total Protein (6.2-8.2) g/dL Albumin (3.8-4.9) g/dL Albumin/Globulin Ratio (1.60-3.17) Ratio Microbiology - Last 24 Hours (Table) 07/22/23 17:33 Blood Culture Gram Stain - Preliminary Blood 07/21/23 10:56 Blood Culture Gram Stain - Preliminary Blood Blood Culture - Preliminary Streptococcus viridans group 07/21/23 10:56 Blood Culture Gram Stain - Preliminary Blood Blood Culture - Preliminary Streptococcus viridans group Molecular ID Assessment and Plan (1) Bacteremia Current Visit: Yes Status: Acute Code(s): R78.81 - BACTEREMIA SNOMED Code(s): 6675946 (2) Lumbar discitis Current Visit: Yes Status: Acute Code(s): M46.46 - DISCITIS, UNSPECIFIED, LUMBAR REGION SNOMED Code(s): 111472982 Plan: 1patient presented to hospital with worsening lower back pain this patient who did have a chronic history of lower back pain also with a history of injection with evidence of abnormal CT suggestive of L2-3 endplate destruction concerning for discitis however the patient is not running any fever did not have any elevated white count with a question of discitis 2-patient will benefit from MRI of the lumbosacral spine with contrast to better for underlying pathology intubation evidence of any abscess that may need to be drained currently waiting for completion of the MRI if it cannot be done at this facility because of his pacemaker recommend transferring to tertiary care 3-patient did have a streptococcal bacteremia source likely discitis blood culture has been repeated which came back positive as well patient continue with Rocephin will repeat blood cultures daily to document clearance of his bacteremia Dictation was produced using [employer] dictation software. please excuse any grammatical, word or spelling errors. Time with Patient: Less than 30
--- NOTE | 2023-07-24 08:07 | P.PN ---
Progress Note - Text Progress Note Date: 07/24/23 The patient is seen and examined at bedside. He is a very pleasant 72-year-old male who is normally a community ambulator without any assistance. I reviewed the consultations and the evaluations as well as the CT imaging. The patient's been having back pain since the middle of April when he tried to lift a heavy june sealant and had sudden new pain at his back. He said he was not really having any troubles with his back prior to that. He says he has been having conservative treatment since that time about 10 weeks ago and had steroid injections at his shoulder and his glutes but has not had epidural intervention for his spine or interventional pain management for spine. He says he was able to manage his symptoms and still get around but his symptoms became significantly worse before the weekend where he was on the ground and unable to get up. He presented to the hospital and was evaluated and found to have evidence of rhabdomyolysis and was admitted. Patient also has significant cardiac history. He is on Eliquis. He had his most recent dose this morning. He has been on blood thinner since 2018 when he sustained a heart attack and had intervention. He also had another intervention in August of last year for valve replacement. He has not had acute events since then. 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 He remains on Eliquis and medical management for his cardiac issues Patient denies any new weakness at his lower extremities. He denies any change in bowel bladder function. He says his back hurts whenever he tries to move and he is still having significant difficulty with any sort of mobilization. The patient also says that he developed ringworm about a week ago. On exam he is alert and oriented x 3. He is breathing comfortably on room air. He is afebrile stable vital signs. Apparently he has some night sweats. His chest has good excursion deep inspiration expiration His abdomen is obese but soft and nontender His upper extremities have full active and passive range of motion with good strength. His neck is nontender to palpation range of motion In his lower extremities he has some chronic edema at his left lower extremity. He is able to have sustained dorsiflexion plantarflexion EHL hip flexion extension with 5 of 5 strength bilateral lower extremities. There is no evidence of cauda equina. Resisted motion his legs creates pain in his back. CT imaging shows erosion at L2-3. There is no apparent focal abscess. Assessment and plan L2-3 disc changes with some bony erosion possible discitis Bacteremia Ringworm Recovering rhabdomyolysis Significant cardiac history Presence of pacemaker from 2018 Regards to the patient's lumbar spine he has changes at L2-3 with possible discitis. He has bacteremia and has been on antibiotics. He has significant low back pain since April which has been worsening for him. He does not have history of any epidural steroid injections that he reports at bedside. He said he had injections in his intramuscular areas for his back pain and had been managing but has been having significant worsening. He has spotty history of possible night sweats that began at home last week as well. The imaging does not give a very clear picture of the lumbar spine and it is possible that he would still be able to get an MRI at an institution that may have compatible imaging for his pacemaker. The service is looking into the possibility of MRI at an alternate service even with his pacemaker. We are u nable to perform that or provide that here at this institution and if he is able to obtain MRI at an alternate institution with his pacemaker then I think he that he should be transferred for further imaging and then for definitive treatment. If the patient's pacemaker is not compatible even at an alternate institution, then we would have to consider surgical intervention for exploration of the area here. I discussed that with the patient at length. I think we should hold his blood thinners if it is okay with medicine service. He should continue his IV antibiotics and we can monitor closely. If the staff is able to find a institution where he can have a compatible MRI with his pacemaker then I think that he should be transferred for definitive care.
[2023-07-24 11:57] LABS: Glucose,Whole Blood 128 mg/dL (70-110)
--- NOTE | 2023-07-24 14:41 | P.PN ---
Subjective Progress Note Date: 07/24/23 Patient is a 72-year-old gentleman with past medical history significant for back pain, aortic stenosis s/p TAVR, coronary artery disease, atrial fibrillation who presented to the ER for back pain. Patient has history of back pain since April and has received steroid injections and is on chronic pain med ications for his back pain. Patient stated that he went to bed last night and and woke up with worsening back pain. There was no complaint of fever or chills. There was no complaint of nausea, vomiting abdominal pain. Denies any chest pain or shortness of breath. Denies any weakness of any extremity. There is no complaint of loss of fecal or urine control. Because of the worsening back pain, patient came to the ER Initial lab work done in the ER showed WBC 8.9, hemoglobin 9.4, platelet count 156, sodium 127, potassium 3.9, BUN 31, creatinine 1.57, glucose 175, calcium 7.9, bilirubin 2.1, AST 61, creatinine kinase 02/27/[address] chest, abdominal pelvis done showed large fecal bolus of the rectum no suspicious change for obstruction. Endplate changes at L2-L3. CT lumbar and thoracic spine done showed progressive loss of endplates at L2-L3 suggestive for discitis Patient admitted to internal medicine service 07/21. Patient seen and examined. Still complaining of back pain. Denies any fever or chills. 07/22. Patient seen and examined. Blood culture positive for Streptococcus viridians, started on IV antibiotics. He still has back pain. 07/23: Patient lying in bed at this time with son at bedside. Patient was seen by infectious disease as well as orthopedics. Has been determined that he needs an MRI that is able to accommodate his pacemaker/AICD. At this time we are going to attempt for transfer for further imaging and definitive care. REVIEW OF SYSTEMS: CONSTITUTIONAL: No fever, no malaise,. CARDIOVASCULAR: No chest pain, no palpitations, no syncope. PULMONARY: No shortness of breath, no cough, GASTROINTESTINAL: No diarrhea, no nausea, no vomiting, no abdominal pain. NEUROLOGICAL: No headaches, no weakness, PHYSICAL EXAMINATION: GENERAL: The patient is alert and oriented x3, not in any acute distress. Well developed, well nourished. HEENT: Pupils are round and equally reacting to light. EOMI. No scleral icterus. No conjunctival pallor. Normocephalic, atraumatic. No pharyngeal erythema. No thyromegaly. CARDIOVASCULAR: S1 and S2 present. No murmurs, rubs, or gallops. PULMONARY: Chest is clear to auscultation, no wheezing or crackles. ABDOMEN: Soft, nontender, nondistended, normoactive bowel sounds. No palpable organomegaly. MUSCULOSKELETAL: No joint swelling or deformity. EXTREMITIES: No cyanosis, clubbing, or pedal edema. NEUROLOGICAL: Gross neurological examination did not reveal any focal deficits. SKIN: No rashes. Assessment and plan: 1. Streptococcus viridians bacteremia. Continue Rocephin 2 g once every 24 hours IV piggyback. We will recheck labs tomorrow morning. Infectious diseases following. 2. Acute on chronic back pain. Continue baclofen 10 mg p.o. twice daily as needed. Continue [place] 7.5325 every 6 hours as needed. Orthopedics is following. 3. L2-L3 discitis. Orthopedic following, not planning any surgical intervention at this time. 4. Mild Rhabdomyolysis. 5. History of aortic valve replacement. 6. Paroxysmal atrial fibrillation. Continue Eliquis 5 mg p.o. twice daily. Continue Toprol XL 25 mg p.o. daily. 7. Coronary artery disease status post PCI. 8. Hypertension. Continue Toprol XL 25 mg once daily. 9. Mixed hyperlipidemia. Continue Lipitor 80 mg once daily. 10. Obstructive sleep apnea. 11. GI prophylaxis. Start Protonix 40 mg IV push once daily. 12. DVT prophylaxis. Continue Eliquis 5 mg p.o. twice daily. Impression and plan of care have been directed as dictated by the signing physician. Nicky Disla, nurse practitioner acting as scribe for signing physician. Objective - Vital Signs Vital signs: Vital Signs Temp 97.3 F L 07/24/23 14:00 Pulse 61 07/24/23 14:00 Resp 16 07/24/23 14:00 BP 113/70 07/24/23 14:00 Pulse Ox 95 07/24/23 14:00 FiO2 Intake & Output 07/23/23 07/24/23 07/24/23 18:59 06:59 18:59 Output Total 400 300 Balance -400 -300 Output: Urine 400 300 Other: # Voids 1 - Labs CBC & Chem 7: 07/23/23 05:04 07/23/23 05:04 Labs: Abnormal Lab Results - Last 24 Hours (Table) 07/23/23 07/24/23 Range/Units 16:33 11:56 POC Glucose (mg/dL) 111 H 128 H (70-110) mg/dL Microbiology - Last 24 Hours (Table) 07/21/23 10:56 Blood Culture Gram Stain - Final Blood Blood Culture - Final Streptococcus viridans group 07/21/23 10:56 Blood Culture Gram Stain - Final Blood Blood Culture - Final Streptococcus viridans group Molecular ID 07/22/23 17:33 Blood Culture Gram Stain - Preliminary Blood Blood Culture - Preliminary Streptococcus viridans group
[2023-07-24] MEDS: BACLOFEN 10 MG TAB PO SCH (15:53)
--- NOTE | 2023-07-24 15:56 | P.PN ---
Subjective Progress Note Date: 07/24/23 Principal diagnosis: Reason for follow-up is abnormal discitis and bacteremia watson is a 72-year-old male with a past medical history significant for coronary artery disease diabetes mellitus hypertension hyperlipidemia [place] sleep apnea chronic back pain and this patient apparently did have 2 steroid injection to his back and has been on chronic pain medication presenting to the hospital with worsening lower back pain, patient did have a abnormal CT concerning for L2-3 discitis with progressive loss of endplate and the patient blood cultures came back positive with strep viridans. On today's evaluation that is 07/24/2023, patient has been afebrile, patient is breathing comfortably and is currently on room air, patient denies having any significant cough no chest pain shortness of breath, patient denies nausea vomiting or diarrhea and no abdominal pain, denies any worsening lower back pain or any weakness to the lower extremity no bowel or bladder problem. No new diet has been obtained today Objective - Vital Signs Vital signs: Vital Signs Temp 97.5 F L 07/24/23 08:00 Pulse 56 L 07/24/23 08:00 Resp 16 07/24/23 08:00 BP 102/74 07/24/23 08:00 Pulse Ox 98 07/24/23 08:00 FiO2 Intake & Output 07/23/23 07/24/23 07/24/23 18:59 06:59 18:59 Output Total 400 300 Balance -400 -300 Output: Urine 400 300 Other: # Voids 1 - Exam GENERAL DESCRIPTION: An elderly male lying in bed in no distress RESPIRATORY SYSTEM: Unlabored breathing , decreased breath sounds at bases HEART: S1 S2 regular rate and rhythm , ABDOMEN: Soft , no tenderness EXTREMITIES: No edema feet - Labs CBC & Chem 7: 07/23/23 05:04 07/23/23 05:04 Labs: Abnormal Lab Results - Last 24 Hours (Table) 07/23/23 07/24/23 Range/Units 16:33 11:56 POC Glucose (mg/dL) 111 H 128 H (70-110) mg/dL Microbiology - Last 24 Hours (Table) 07/21/23 10:56 Blood Culture Gram Stain - Final Blood Blood Culture - Final Streptococcus viridans group 07/21/23 10:56 Blood Culture Gram Stain - Final Blood Blood Culture - Final Streptococcus viridans group Molecular ID 07/22/23 17:33 Blood Culture Gram Stain - Preliminary Blood Blood Culture - Preliminary Streptococcus viridans group Assessment and Plan (1) Bacteremia Current Visit: Yes Status: Acute Code(s): R78.81 - BACTEREMIA SNOMED Code(s): 9088609 (2) Lumbar discitis Current Visit: Yes Status: Acute Code(s): M46.46 - DISCITIS, UNSPECIFIED, LUMBAR REGION SNOMED Code(s): 000791337 Plan: 1patient presented to hospital with worsening lower back pain this patient who did have a chronic history of lower back pain also with a history of injection with evidence of abnormal CT suggestive of L2-3 endplate destruction concerning for discitis however the patient is not running any fever did not have any elevated white count with a question of discitis 2-patient will benefit from MRI of the lumbosacral spine with contrast to better for underlying pathology to make sure no evidence of any abscess that may need to be drained currently waiting for completion of the MRI if it cannot be done at this facility because of his pacemaker recommend transferring to tertiary care currently waiting for the MRI 3-patient did have a streptococcal bacteremia source likely discitis blood culture has been repeated to document clearance of his bacteremia and will continue with [facility] at bedside multiple questions were answered Dictation was produced using [employer] dictation software. please excuse any grammatical, word or spelling errors. Time with Patient: Less than 30
[2023-07-24 17:26] LABS: Glucose,Whole Blood 120 mg/dL (70-110)
--- NOTE | 2023-07-24 18:26 | XR ---
EXAMINATION TYPE: XR chest 1V portable DATE OF EXAM: 07/24/2023 Comparison: 09/21/2022 Clinical History: 72-year-old male covid follow up Findings: Endovascular aortic valve replacement. Left anterior chest wall AICD generator with right atrial, rig ht ventricular, and coronary sinus leads. Right upper limits of normal in size. Interstitial density with suspected trace effusions. Relative upper lung lucencies may reflect underlying emphysema. Suspe cted old greater tuberosity fracture. Clinically correlate. Impression: COPD with suspected trace effusions and mild patchy interstitial change in the lower lungs. Consider sequela of mild CHF versus atypical pneumonia.
--- NOTE | 2023-07-24 18:29 | CA ---
Transthoracic Echo Report Name: Luis Oneill Age: 72 Gender: M : 1950 Exam Date: 07/24/2023 11:30 Exam Location: [facility] Ht (in): 71 Wt (lb): 248 Ordering Physician: Carlos Conteh MD Attending/Referring Phys: Winch Stripper Kenyatta Kebede RDCS Procedure CPT: Indications: bacteremia Cardiac Hx: Technical Quality: Contrast 1: Total Dose (mL): Contrast 2: Total Dose (mL): MEASUREMENTS (Male / Female) Normal Values 2D ECHO LV Diastolic Diameter PLAX 5.5 cm 4.2 - 5.9 / 3.9 - 5.3 cm LV Systolic Diameter PLAX 3.9 cm IVS Diastolic Thickness 1.1 cm 0.6 - 1.0 / 0.6 - 0.9 cm LVPW Diastolic Thickness 1.1 cm 0.6 - 1.0 / 0.6 - 0.9 cm LV Relative Wall Thickness 0.4 RV Internal Dim ED PLAX 4.6 cm LVOT Diameter 2.5 cm LV Diastolic Volume MOD BP 216.4 cm??? 67 - 155 / 56 - 104 cm??? LV Systolic Volume MOD BP 105.0 cm??? 22 - 58 / 19 - 49 cm??? LV Ejection Fraction MOD BP 51.5 % >= 55 % LV Diastolic Volume MOD 4C 220.5 cm??? LV Systolic Volume MOD 4C 109.0 cm??? LV Ejection Fraction MOD 4C 50.6 % LV Diastolic Length 4C 9.7 cm LV Systolic Length 4C 8.0 cm LV Diastolic Volume MOD 2C 212.2 cm??? LV Systolic Volume MOD 2C 100.6 cm??? LV Ejection Fraction MOD 2C 52.6 % LV Diastolic Length 2C 9.7 cm LV Systolic Length 2C 8.1 cm LA Volume 163.0 cm??? 18 - 58 / 22 - 52 cm??? LA Volume Index 67.6 cm???/m??? 16 - 28 cm???/m??? Ascending Aorta Diameter 3.6 cm DOPPLER AV Peak Velocity 327.9 cm/s AV Peak Gradient 43.0 mmHg AV Mean Velocity 230.5 cm/s AV Mean Gradient 23.9 mmHg AV Velocity Time Integral 73.9 cm LVOT Peak Velocity 138.2 cm/s LVOT Peak Gradient 7.6 mmHg LVOT Velocity Time Integral 29.1 cm LVOT Stroke Volume 137.3 cm??? LVOT Stroke Volume Index 59.4 ml/m??? AV Area Cont Eq vti 1.9 cm??? AV Area Cont Eq pk 2.0 cm??? MV Area PHT 3.5 cm??? Mitral E Point Velocity 95.4 cm/s Mitral A Point Velocity 23.4 cm/s Mitral E to A Ratio 4.1 MV Deceleration Time 219.2 ms PV Peak Velocity 103.4 cm/s PV Peak Gradient 4.3 mmHg FINDINGS Left Ventricle Left ventricular ejection fraction is estimated at 55-60 %. Mildly increased septal wall thickness. Normal left ventricular ejection fraction. No obvious regional wall motion abnormalities. Right Ventricle Severe right ventricular dilatation with moderately reduced function. Unable to estimate the right ventricular systolic pressure. Pacemaker noted in right ventricle and atrium. Right Atrium Severe right atrial dilatation. Left Atrium Severely increased left atrial volume. Moderately increased left atrial area. Mitral Valve Structurally normal mitral valve. No evidence for mitral valve prolapse. No mitral stenosis. Mild mitral regurgitation. Aortic Valve Normally functioning 29mm Edward Yvonne 3 bioprosthetic aortic valve without stenosis with a peak velocity of 3.5 m/s, peak gradient 48 mmHg, mean gradient 26 mmHg, and estimated aortic valve area of 1.9cm???. Tricuspid Valve Structurally normal tricuspid valve. No tricuspid stenosis. Trace tricuspid regurgitation. Pulmonic Valve Pulmonic valve not well visualized. No pulmonic stenosis. Trace pulmonic regurgitation. Pericardium No pericardial effusion. Aorta Ascending aorta normal. CONCLUSIONS Left ventricular ejection fraction is estimated at 55 %. No obvious regional wall motion abnormalities. RV appears dilated with moderately reduced systolic function. PPM wire noticed in RA and RV Severe biatrial dilatation Mild MR 29 mm YVONNE S3 bioprosthetic aortic valve, mean gradient 26 mmHg. No paravalvular leak No pericardial effusion Previewed by: Dr Garry Camarena (Electronically Signed) Final Date: 24 Jul 2023 18:28
[2023-07-24] MEDS: HYDROmorphone 1 MG/ML 1 ML SYRINGE IVP PRN (18:39)
[2023-07-24 20:40] LABS: Glucose,Whole Blood 120 mg/dL (70-110)
[2023-07-24] MEDS: ATORVASTATIN 80 MG TAB PO SCH (21:49)
[2023-07-24] MEDS: HYDROcodone/APAP 10-325MG 1 EACH TAB PO PRN (21:49)
[2023-07-25 05:43] LABS: Glucose,Whole Blood 111 mg/dL (70-110)
[2023-07-25] MEDS: PANTOPRAZOLE 40 MG/10 ML VIAL IVP SCH (09:24)
[2023-07-25 09:35] LABS: ALT 46 U/L (10-49); AST 83 U/L (14-35); Albumin 2.5 g/dL (3.8-4.9); Albumin/Globulin Ratio 0.83 Ratio (1.60-3.17); Alkaline Phosphatase 81 U/L (41-126); Blood Urea Nitrogen 16.2 mg/dL (9.0-27.0); Calcium 7.9 mg/dL (8.7-10.3); Carbon Dioxide 21.6 mmol/L (21.6-31.8); Chloride 106 mmol/L (96-109); Glucose 105 mg/dL (70-110); Potassium 4.5 mmol/L (3.5-5.5); Sodium 137 mmol/L (135-145); Total Bilirubin 0.7 mg/dL (0.3-1.2); Total Protein 5.5 g/dL (6.2-8.2)
[2023-07-25] MEDS: DOCUSATE 100 MG CAP PO SCH (09:48)
[2023-07-25] MEDS: polyethylene glycoL 3350 17 GM POWD.PACK PO SCH (09:48)
[2023-07-25 11:31] LABS: Glucose,Whole Blood 134 mg/dL (70-110)
--- NOTE | 2023-07-25 14:41 | P.TRANS ---
Providers Date of admission: 07/21/23 08:06 Expected date of discharge: 07/25/23 Attending physician: Naina Gore Consults: 07/21/23 10:26 Consult Physician Routine Consulting Provider: Julia Barlow Consult Reason/Comments: Intractable back pain Do you want consulting provider notified?: Yes 07/21/23 10:27 Consult Physician Routine Consulting Provider: Mariah Ochoa Consult Reason/Comments: MRI lumbar spine showing changes suspicious for discitis Do you want consulting provider notified?: Yes Primary care physician: Naina Gore [facility] Course: Patient is a 72-year-old gentleman with past medical history significant for back pain, aortic stenosis s/p TAVR, coronary artery disease, atrial fibrillation who presented to the ER for back pain. Patient has history of back pain since April and has received steroid injections and is on chronic pain medications for his back pain. Patient stated that he went to bed last night and and woke up with worsening back pain. There was no complaint of fever or chills. There was no complaint of nausea, vomiting abdominal pain. Denies any chest pain or shortness of breath. Denies any weakness of any extremity. There is no complaint of loss of fecal or urine control. Because of the worsening back pain, patient came to the ER Initial lab work done in the ER showed WBC 8.9, hemoglobin 9.4, platelet count 156, sodium 127, potassium 3.9, BUN 31, creatinine 1.57, glucose 175, calcium 7.9, bilirubin 2.1, AST 61, creatinine kinase 02/27/[address] chest, abdominal pelvis done showed large fecal bolus of the rectum no suspicious change for obstruction. Endplate changes at L2-L3. CT lumbar and thoracic spine done showed progressive loss of endplates at L2-L3 suggestive for discitis Patient admitted to internal medicine service 07/21. Patient seen and examined. Still complaining of back pain. Denies any fever or chills. 07/22. Patient seen and examined. Blood culture positive for Streptococcus viridians, started on IV antibiotics. He still has back pain. 07/23: Patient lying in bed at this time with son at bedside. Patient was seen by infectious disease as well as orthopedics. Has been determined that he needs an MRI that is able to accommodate his pacemaker/AICD. At this time we are going to attempt for transfer for further imaging and definitive care. 07/24: Patient is scheduled for transfer to [facility] at 6 p.m. today. REVIEW OF SYSTEMS: CONSTITUTIONAL: No fever, no malaise,. CARDIOVASCULAR: No chest pain, no palpitations, no syncope. PULMONARY: No shortness of breath, no cough, GASTROINTESTINAL: No diarrhea, no nausea, no vomiting, no abdominal pain. NEUROLOGICAL: No headaches, no weakness, PHYSICAL EXAMINATION: GENERAL: The patient is alert and oriented x3, not in any acute distress. Well developed, well nourished. HEENT: Pupils are round and equally reacting to light. EOMI. No scleral icterus. No conjunctival pallor. Normocephalic, atraumatic. No pharyngeal erythema. No thyromegaly. CARDIOVASCULAR: S1 and S2 present. No murmurs, rubs, or gallops. PULMONARY: Chest is clear to auscultation, no wheezing or crackles. ABDOMEN: Soft, nontender, nondistended, normoactive bowel sounds. No palpable organomegaly. MUSCULOSKELETAL: No joint swelling or deformity. EXTREMITIES: No cyanosis, clubbing, or pedal edema. NEUROLOGICAL: Gross neurological examination did not reveal any focal deficits. SKIN: No rashes. Assessment and plan: 1. Streptococcus viridians bacteremia secondary to discitis. Continue Rocephin 2 g once every 24 hours IV piggyback. We will recheck labs tomorrow morning. Infectious diseases following. 2. Acute on chronic back pain. Continue baclofen 10 mg p.o. twice daily as needed. Continue [place] 7.5325 every 6 hours as needed. Orthopedics is following. 3. L2-L3 discitis. Orthopedic following, not planning any surgical intervention at this time. 4. Mild Rhabdomyolysis. 5. History of aortic valve replacement. 6. Paroxysmal atrial fibrillation. Continue Eliquis 5 mg p.o. twice daily. Continue Toprol XL 25 mg p.o. daily. 7. Coronary artery disease status post PCI. 8. Hypertension. Continue Toprol XL 25 mg once daily. 9. Mixed hyperlipidemia. Continue Lipitor 80 mg once daily. 10. Obstructive sleep apnea. 11. GI prophylaxis. Start Protonix 40 mg IV push once daily. 12. DVT prophylaxis. Continue Eliquis 5 mg p.o. twice daily. Patient Condition at Discharge: Stable Plan - Transfer Summary Transfer Medications: Active Medications Generic Name Dose Route Start Last Admin Trade Name Freq PRN Reason Stop Dose Admin Hydrocodone Bitart/Acetaminophen 1 each 07/24/23 18:33 07/25/23 09:21 Hydrocodone/Apap 10-325mg 1 Each Tab PO 1 each Q6HR PRN Administration Pain Apixaban 5 mg 07/21/23 10:45 07/25/23 09:48 Apixaban 5 Mg Tab PO Not Given BID CHARU Protocol Atorvastatin Calcium 80 mg 07/24/23 21:00 07/24/23 21:49 Atorvastatin 80 Mg Tab PO 80 mg HS CHARU Administration Baclofen 10 mg 07/24/23 16:00 07/25/23 09:21 Baclofen 10 Mg Tab PO 10 mg TID CHARU Administration Clopidogrel Bisulfate 75 mg 07/22/23 09:00 07/25/23 09:49 Clopidogrel 75 Mg Tab PO 75 mg DAILY CHARU Administration Clotrimazole 1 applic 07/21/23 21:30 07/25/23 10:56 Clotrimazole 1% Cream 30 Gm Tube TOPICAL 1 applic BID CHARU Administration Protocol Docusate Sodium 100 mg 07/25/23 09:00 07/25/23 09:48 Docusate 100 Mg Cap PO 100 mg DAILY CHARU Administration Hydromorphone HCl 1 mg 07/24/23 18:33 07/24/23 18:39 Hydromorphone 1 Mg/Ml 1 Ml Syringe IVP 1 mg Q4HR PRN Administration Pain Sodium Chloride 1,000 mls @ 130 mls/hr 07/21/23 06:15 07/25/23 09:26 Saline 0.9% IV 130 mls/hr .[id number] HCARU Administration Ceftriaxone Sodium 2 gm/ 50 mls @ 100 mls/hr 07/22/23 17:00 07/25/23 09:49 Sodium Chloride IVPB 100 mls/hr Q24HR CHARU Administration Protocol Metoprolol Succinate 25 mg 07/22/23 09:00 07/25/23 09:49 Metoprolol Succinate (Er) 25 Mg Tab.Er.24h PO 25 mg DAILY CHARU Administration Montelukast Sodium 10 mg 07/22/23 09:00 07/25/23 09:48 Montelukast 10 Mg Tab PO 10 mg DAILY CHAUR Administration Naloxone HCl 0.2 mg 07/21/23 08:06 Naloxone 0.4 Mg/Ml 1 Ml Vial IV Q2M PRN Opioid Reversal Nitroglycerin 0.4 mg 07/21/23 10:39 Nitroglycerin Sl Tabs 0.4 Mg Tab SUBLINGUAL Q5M PRN Chest Pain Ondansetron HCl 4 mg 07/21/23 08:14 Ondansetron 4 Mg/2 Ml Vial IVP Q8HR PRN Nausea And Vomiting Pantoprazole Sodium 40 mg 07/25/23 09:00 07/25/23 09:24 Pantoprazole 40 Mg/10 Ml Vial IVP 40 mg DAILY CHARU Administration Polyethylene Glycol 17 gm 07/25/23 09:00 07/25/23 09:48 Polyethylene Glycol 3350 17 Gm Powd.Pack PO 17 gm DAILY CHARU Administration Potassium Chloride 20 meq 07/22/23 09:00 07/25/23 09:48 Potassium Chloride Er 20 Meq Tab.Er PO 20 meq DAILY CHARU Administration Follow up Appointment(s)/Referral(s): Naina Gore MD [Primary Care Provider] - 1-2 days
[2023-07-25 15:21] VITALS: BP 106/59; PULSE 52; RESP 17; TEMP 97.8
[2023-07-25 16:56] LABS: Glucose,Whole Blood 112 mg/dL (70-110)
--- NOTE | 2023-07-26 16:53 | P.PN ---
Subjective Progress Note Date: 07/25/23 Principal diagnosis: Reason for follow-up is abnormal discitis and bacteremia watson is a 72-year-old male with a past medical history significant for coronary artery disease diabetes mellitus hypertension hyperlipidemia [place] sleep apnea chronic back pain and this patient apparently did have 2 steroid injection to his back and has been on chronic pain medication presenting to the hospital with worsening lower back pain, patient did have a abnormal CT concerning for L2-3 discitis with progressive loss of endplate and the patient blood cultures came back positive with strep viridans. On today's evaluation that is 07/25/2023,the patient denies any fever or any chills, patient is breathing comfortably on room air, the patient denies chest pain shortness of breath and no significant cough, patient denies abdominal pain, no nausea vomiting or diarrhea. Denies any worsening pain to the lower back or any weakness in the lower extremity. Patient did have a creatinine 1.0 blood culture repeat currently pending Objective - Vital Signs Vital signs: Vital Signs Temp 97.5 F L 07/25/23 07:04 Pulse 63 07/25/23 07:04 Resp 16 07/25/23 07:04 BP 144/72 07/25/23 07:04 Pulse Ox 100 07/25/23 07:04 FiO2 Intake & Output 07/24/23 07/25/23 07/25/23 18:59 06:59 18:59 Output Total 1050 250 Balance -1050 -250 Output: Urine 1050 250 Other: Voiding Method Urinal Urinal - Exam GENERAL DESCRIPTION: An elderly male lying in bed in no distress RESPIRATORY SYSTEM: Unlabored breathing , decreased breath sounds at bases HEART: S1 S2 regular rate and rhythm , ABDOMEN: Soft , no tenderness EXTREMITIES: No edema feet - Labs CBC & Chem 7: 07/23/23 05:04 07/25/23 05:04 Labs: Abnormal Lab Results - Last 24 Hours (Table) 07/24/23 07/24/23 07/25/23 Range/Units 17:18 20:38 05:04 POC Glucose (mg/dL) 120 H 120 H (70-110) mg/dL Calcium 7.9 L (8.7-10.3) mg/dL AST 83 H (14-35) U/L Total Protein 5.5 L (6.2-8.2) g/dL Albumin 2.5 L (3.8-4.9) g/dL Albumin/Globulin Ratio 0.83 L (1.60-3.17) Ratio 07/25/23 07/25/23 Range/Units 05:42 11:29 POC Glucose (mg/dL) 111 H 134 H (70-110) mg/dL Calcium (8.7-10.3) mg/dL AST (14-35) U/L Total Protein (6.2-8.2) g/dL Albumin (3.8-4.9) g/dL Albumin/Globulin Ratio (1.60-3.17) Ratio Microbiology - Last 24 Hours (Table) 07/22/23 17:33 Blood Culture Gram Stain - Final Blood Blood Culture - Final Streptococcus viridans group 07/21/23 10:56 Blood Culture Gram Stain - Final Blood Blood Culture - Final Streptococcus viridans group 07/21/23 10:56 Blood Culture Gram Stain - Final Blood Blood Culture - Final Streptococcus viridans group Molecular ID Assessment and Plan (1) Bacteremia Status: Acute Code(s): R78.81 - BACTEREMIA SNOMED Code(s): 4553301 (2) Lumbar discitis Status: Acute Code(s): M46.46 - DISCITIS, UNSPECIFIED, LUMBAR REGION SNOMED Code(s): 692828781 Plan: 1patient presented to hospital with worsening lower back pain this patient who did have a chronic history of lower back pain also with a history of injection with evidence of abnormal CT suggestive of L2-3 endplate destruction concerning for discitis however the patient is not running any fever did not have any elevated white count with a question of discitis 2-patient will benefit from MRI of the lumbosacral spine with contrast to better for underlying pathology to make sure no evidence of any abscess that may need to be drained currently waiting for completion of the MRI if it cannot be done at this facility because of his pacemaker recommend transferring to tertiary care currently waiting for transfer to [facility] 3-patient did have a streptococcal bacteremia source likely discitis blood culture has been repeated which are negative so far patient to continue with [facility] at the bedside questions also Dictation was produced using [email or web address] dictation software. please excuse any grammatical, word or spelling errors. Time with Patient: Less than 30
== END 2023-07-25 19:04 | disposition short-term general hospital (02) | DRG 552 ==
LOC: EC 03:37 → 4SSUR 08:06
PROVIDERS: ADMIT Internal Medicine; ATTEND Internal Medicine
DX: M46.46 Discitis, unspecified, lumbar region (principal); M62.82 Rhabdomyolysis; R78.81 Bacteremia; K74.60 Unspecified cirrhosis of liver; I48.0 Paroxysmal atrial fibrillation; B95.4 Other streptococcus as the cause of diseases classified elsewhere; I25.10 Atherosclerotic heart disease of native coronary artery without angina pectoris; I10 Essential (primary) hypertension; I35.0 Nonrheumatic aortic (valve) stenosis; G89.29 Other chronic pain; B35.9 Dermatophytosis, unspecified; E11.9 Type 2 diabetes mellitus without complications; G47.33 Obstructive sleep apnea (adult) (pediatric); E78.2 Mixed hyperlipidemia; X50.0XXD Overexertion from strenuous movement or load, subsequent encounter; I25.2 Old myocardial infarction; Z95.5 Presence of coronary angioplasty implant and graft; Z95.2 Presence of prosthetic heart valve; Z79.899 Other long term (current) drug therapy; Z79.02 Long term (current) use of antithrombotics/antiplatelets; Z79.01 Long term (current) use of anticoagulants; Z95.810 Presence of automatic (implantable) cardiac defibrillator; Z79.891 Long term (current) use of opiate analgesic
CPT/HCPCS: 36415; 71045; 71260; 72129; 72132; 74177; 80053; 81001; 82550; 84145; 85025; 85652; 86140; 87040; 87077; 87186; 93306; 94660; 96361; 96374; 96375; 99285